=== PATIENT | female | born 1960 | race Caucasian/White ===

== ENCOUNTER 2021-05-07 12:07 | Outpatient (REF) | payer OTHER, SELFPAY ==
--- NOTE | ~2021-05-07 | XR_ITS ---
EXAMINATION: XR RIBS, LEFT CLINICAL INFORMATION: Pleurodynia COMPARISON: None TECHNIQUE: 5 views of the left ribs were obtained. PA view of the chest FINDINGS: Lungs are clear. No consolidation, pneumothorax, or pleural effusion. The cardiomediastinal silhouette and pulmonary vasculature are normal. Osseous structures are unremarkable. Ribs are intact. No fractures are identified. XR/XR ribs LT min 3V w CXR1V IMPRESSION: Unremarkable examination.
== END 2021-05-07 12:08 | disposition home or self-care (01) ==
LOC: HO.HMGCX 12:07
PROVIDERS: PCP Internal Medicine; Visit Provider Physician Assistant
DX: R07.81 Pleurodynia (principal)
CPT/HCPCS: 71101

== ENCOUNTER 2021-12-08 17:05 | Emergency (ER) | payer OTHER, SELFPAY ==
--- NOTE | ~2021-12-08 | CT_ITS ---
EXAMINATION: CT ABDOMEN AND PELVIS WITHOUT CONTRAST CLINICAL INFORMATION: Abdominal pain with nausea and vomiting COMPARISON: CT 03/29/2020 TECHNIQUE: Multidetector volumetric imaging was performed from the lung bases through the pubic symphysis. Sagittal and coronal reformatted images were obtained on the technologist workstation. This CT examination was performed using dose optimization techniques as appropriate, variously including the following: *Automated exposure control *Adjustment of mA and/or kV according to patient size (this includes techniques or standardized protocols for targeted exams where dose is matched to indication/reason for exam; i.e. extremities or head) *Use of iterative reconstruction technique Total exam DLP 1000 mGy-cm FINDINGS: The lack of intravenous contrast limits evaluation of the solid visceral organs including the liver, spleen, pancreas, and kidneys. LUNG BASES: The visualized lung bases are unremarkable. LIVER, GALLBLADDER, AND BILIARY TREE: Liver is diffusely hypoattenuating consistent with diffuse hepatic steatosis. No focal liver lesion seen. The gallbladder is unremarkable with no evidence of radiopaque gallstones, gallbladder wall thickening, or obvious pericholecystic inflammatory changes. PANCREAS: Limited non-contrast evaluation is normal. No phoebe-pancreatic fluid. SPLEEN: Limited non-contrast evaluation is normal. ADRENAL GLANDS: Normal; no adrenal mass. KIDNEYS AND URETERS: Limited non-contrast evaluation is normal. No hydronephrosis, hydroureter, or calculi seen. No perinephric stranding. GASTROINTESTINAL TRACT: The stomach is only partially distended. As on prior studies, there is relative clustering of the small bowel in the left abdomen. Some of the left upper quadrant jejunal loops are upper limits of normal in caliber with some fecalized small bowel contents suggesting prolonged small bowel transit time but no diamond evidence of obstruction. Normal appendix, image 68/97. Scattered colonic diverticulosis with moderate volume of stool present. No findings to suggest acute colitis or diverticulitis. ABDOMINAL WALL: There is fat stranding in the right lower quadrant anterior abdominal wall which could reflect sequelae of subcutaneous injections. LYMPH NODES: No pathologically enlarged lymph nodes in the abdomen or pelvis. VASCULAR: Normal caliber abdominal aorta. BLADDER: Unremarkable. PELVIC VISCERA: Normal noncontrast appearance of the uterus and ovaries. OSSEOUS STRUCTURES: Multilevel degenerative changes of the thoracolumbar spine. Calcified posterior disc osteophyte complexes at L1-L2 and L2-L3 effaced the ventral thecal sac at this level. CT/CT abdomen pelvis wo con IMPRESSION: There are some prominent but nondilated loops of small bowel in the left upper quadrant with fecalized small bowel contents. These could be seen in the setting of prolonged small bowel transit time or stasis, for example from enteritis.. No findings to suggest a high-grade small bowel obstruction. No additional acute CT findings. Again seen is severe diffuse hepatic steatosis.
[2021-12-08 17:34] VITALS: BP 144/74; PULSE 84; RESP 18; TEMP 36.8; O2SAT 97; BMI 34.4
[2021-12-08 17:49] LABS: Hematocrit 40.4 % (37.0-47.0); Hemoglobin 13.5 g/dl (12.0-16.0); Mean Corpuscular HGB Conc 33.4 g/dl (31.0-35.0); Mean Corpuscular Hemoglobin 32.5 pg (27.0-33.0); Mean Corpuscular Volume 97.3 fL (80.0-98.0); Mean Platelet Volume 9.8 fL (9.4-12.3); Platelet Count 155 X10*3/uL (160-400); Red Blood Count 4.15 X10*6/uL (4.20-5.50); Red Cell Distribution Width 12.6 % (11.0-16.0); White Blood Count 7.5 X10*3/uL (4.8-10.8)
[2021-12-08 18:04] LABS: COVID-19 Test Negative (Negative); IDNOW Serial# 16C4AD1C
[2021-12-08 18:06] LABS: Anion Gap 13 (12-20); Blood Urea Nitrogen 26 mg/dL (9-16); Calcium 8.9 mg/dL (8.4-10.2); Carbon Dioxide 24 mmol/L (22-29); Chloride 103 mmol/L (96-108); Creatinine Clr Calc Pharmacy 91.5; Estimated Glomerular Filt Rate > 60; Glucose Random 134 mg/dL (60-115); Lipase 49 U/L (8-78); Potassium 4.2 mmol/L (3.3-5.1); Sodium 136 mmol/L (135-145)
--- NOTE | 2021-12-08 21:24 | ED.ABDPAIN ---
HPI - Abdominal Pain General Chief Complaint: Recheck/Abnormal Lab/Rx Stated Complaint: abnormal labs, abd pain Time Seen by Provider: 12/08/21 21:17 Source: patient Mode of arrival: ambulatory Limitations: no limitations History of Present Illness HPI narrative: 61 years old female came in for evaluation of upper abdominal pain. Upper/epigastric abdominal pain started 1 day ago, pain has been constant, started as severe 10/10 now it is 5/10, pain is associated with nausea but no vomiting, has a normal bowel movement with no diarrhea or blood in the bowel movement, food make the pain slightly worse, nothing relieves the pain, never had this pain in the past. Patient declined past abdominal surgery. No urine frequency, no dysuria, no blood in the urine, no vaginal bleeding, no vaginal discharge. Related Data Home Medications Medication Instructions Recorded Confirmed empagliflozin 25 mg tablet 25 mg PO DAILY 05/07/21 (Jardiance) insulin glargine 100 unit/mL (3 unit SUBCUT 05/07/21 mL) subcutaneous pen (Basaglar KwikPen U-100 Insulin) insulin lispro 100 unit/mL SUBCUT 05/07/21 subcutaneous pen (Humalog KwikPen (U-100) Insulin) lancets 28 gauge (FreeStyle #100 ea 05/07/21 Lancets) lisinopril 5 mg tablet 5 mg PO DAILY 05/07/21 metformin 500 mg tablet,extended 1,000 mg PO BID 05/07/21 release 24 hr nystatin 100,000 unit/gram topical TOPICAL 05/07/21 powder Previous Rx's Medication Instructions Recorded nitrofurantoin 100 mg PO Q12H 7 Days #14 cap 12/09/21 monohydrate/macrocrystals 100 mg capsule (Macrobid) Allergies Allergy/AdvReac Type Severity Reaction Status Date / Time No Known Allergies Allergy Verified 05/07/21 11:41 Review of Systems Review of Systems All other systems are reviewed and are negative Constitutional: Reports as per HPI and Reports no additional constitutional complaints Eyes: Reports as per HPI and Reports no additional eye complaints Reports system reviewed and no additional complaints, except as documented Cardiovascular: Reports as per HPI and Reports no additional cardiovascular complaints Respiratory: Reports as per HPI and Reports no additional respiratory complaints Gastrointestinal: Reports as per HPI and Reports no additional gastrointestinal complaints Genitourinary: Reports no additional female genitourinary complaints Musculoskeletal: Reports no additional musculoskeletal complaints Skin/Breast: Reports system reviewed and no additional complaints, except as docu Psychiatric: Reports no additional psychiatric complaints Endocrine: Reports no additional endocrine complaints Hematologic/Lymphatic: Reports no additional hematologic/lymphatic complaints Allergic/Immunologic: Reports no additional allergic/immunologic complaints Reports system reviewed and no additional complaints, except as documented and Reports Abnormal speech present [facility] Social History Social History Patient Tobacco Use Status: Former Tobacco user Advance Directives: No Advance Directives Information Provided: No Physical Exam ED Vital Signs: Vital Signs - 24 hr 12/08/21 17:34 12/08/21 23:39 Temperature 98.2 F 98.2 F Pulse Rate 84 78 Respiratory Rate 18 16 Blood Pressure 144/74 H 129/75 Pulse Oximetry 97 95 BMI result Body Mass Index 34.4 Vital signs have been reviewed as appeared to be correct. Blood pressure normal. Heart rate normal. Respiration rate normal. Temperature normal. Oxygen saturation normal. Appearance: Alert. Oriented X3. No acute distress. Head: Normal external exam. Normocephalic. Atraumatic. No Molina signs noted. No raccoon eyes noted Eyes: PERRLA. EOMI. Conjunctiva and sclera normal. Eyelids normal. ENT: TM's Normal. Pharynx normal. Uvula midline. Moist mucous membranes. No trismus noted. No drooling noted. No muffled voice noted. Neck: Normal inspection. Neck supple. FROM. No adenopathy. Thyroid Normal. No meningeal signs. No neck mass noted. CVS: Normal heart rate and rhythm. Heart sound normal. No murmurs noted. Pulses normal throughout. Respiratory: No respiratory distress. Painless inspiration. Breath sounds normal. No wheezes/rales/rhonchi noted. Chest nontender. No accessory muscle usage noted or decreased air movement noted. Abdomen: Soft, mild epigastric tenderness with no rebound tenderness, no guarding. Bowel sounds normal in all 4 quadrants. No distention noted. No organomegaly noted. No visible injury noted. Back: No CVA tenderness. Full range of motion noted. Skin: Skin warm and dry. Normal skin color. Normal skin turgor. No rashes/lesions/lacerations noted. Extremities: No lower extremity edema. Extremities exhibit normal range of motion. Extremities nontender. Neuro: Oriented X 3. Cranial nerve exam: II-XII are grossly intact No motor deficit. No sensory deficit. Reflexes normal. Course Course Course Narrative: Assessment and plan. 61-year-old female came in for abdominal pain evaluation, patient has unremarkable workup, CT of the abdomen suggesting possible enteritis, physical exam and history not consistent with any recent infectious or inflammatory process of the GI, patient currently has no abdominal pain, repeat abdominal exam shows no tenderness, no rebound tenderness. Able to tolerate p.o. intake, will discharge the patient and follow up with GI as an outpatient. UTI will start the patient on Macrobid and encouraged to drink plenty of fluids. MDM - Abdominal Pain Medical Records Attestation: I reviewed the patient's medical records. Lab Data Attestation: I reviewed the patient's lab results. Result diagrams: 12/08/21 17:41 12/08/21 17:41 Labs: Lab Results 12/08/21 12/08/21 12/08/21 Range/Units 17:41 17:41 17:41 WBC 7.5 (4.8-10.8) X10*3/uL RBC 4.15 L (4.20-5.50) X10*6/uL Hgb 13.5 (12.0-16.0) g/dl Hct 40.4 (37.0-47.0) % MCV 97.3 (80.0-98.0) fL MCH 32.5 (27.0-33.0) pg MCHC 33.4 (31.0-35.0) g/dl RDW 12.6 (11.0-16.0) % Plt Count 155 L (160-400) X10*3/uL MPV 9.8 (9.4-12.3) fL Absolute Nucleated RBC 0.000 (0.0-0.012) X10*3/uL Nucleated RBC % (auto) 0.0 (0.0-0.2) /100WBC Sodium 136 (135-145) mmol/L Potassium 4.2 (3.3-5.1) mmol/L Chloride 103 (96-108) mmol/L Carbon Dioxide 24 (22-29) mmol/L Anion Gap 13 (12-20) BUN 26 H (9-16) mg/dL Creatinine 0.84 (0.5-1.4) mg/dL Estim Creat Clear Calc 91.5 Estimated GFR > 60 Random Glucose 134 H (60-115) mg/dL Calcium 8.9 (8.4-10.2) mg/dL Total Bilirubin 0.5 (0.0-1.0) mg/dL Direct Bilirubin 0.3 (0.0-0.5) mg/dL AST 24 (5-31) U/L ALT 32 H (0-31) U/L Alkaline Phosphatase 91 (39-117) U/L Total Protein 6.7 (6.5-8.0) g/dL Albumin 3.7 (3.5-5.0) g/dL Lipase 49 (8-78) U/L Urine Color Urine Appearance Urine pH (5.0-8.0) Ur Specific [place] (1.005-1.025) Urine Protein (NEG-TRACE) MG/DL Urine Glucose (UA) (NEG) MG/DL Urine Ketones (NEG) MG/DL Urine Blood (NEG) Urine Nitrite (NEG) Ur Leukocyte Esterase (NEG) Urine RBC (0) /HPF Urine WBC (0-4) /HPF Ur Squamous Epith Cells /LPF Urine Bacteria /LPF Urine Opiates Screen (Not Detect) Urine Fentanyl Screen (Not Detect) Ur Barbiturates Screen (Not Detect) Ur Phencyclidine Scrn (Not Detect) Ur Amphetamines Screen (Not Detect) U Benzodiazepines Scrn (Not Detect) Urine Cocaine Screen (Not Detect) U Marijuana (THC) Screen (Not Detect) COVID-19 (CARISA) Negative (Negative) COVID-19 Clin Com See Note 12/08/21 12/08/21 Range/Units 22:00 22:00 WBC (4.8-10.8) X10*3/uL RBC (4.20-5.50) X10*6/uL Hgb (12.0-16.0) g/dl Hct (37.0-47.0) % MCV (80.0-98.0) fL MCH (27.0-33.0) pg MCHC (31.0-35.0) g/dl RDW (11.0-16.0) % Plt Count (160-400) X10*3/uL MPV (9.4-12.3) fL Absolute Nucleated RBC (0.0-0.012) X10*3/uL Nucleated RBC % (auto) (0.0-0.2) /100WBC Sodium (135-145) mmol/L Potassium (3.3-5.1) mmol/L Chloride (96-108) mmol/L Carbon Dioxide (22-29) mmol/L Anion Gap (12-20) BUN (9-16) mg/dL Creatinine (0.5-1.4) mg/dL Estim Creat Clear Calc Estimated GFR Random Glucose (60-115) mg/dL Calcium (8.4-10.2) mg/dL Total Bilirubin (0.0-1.0) mg/dL Direct Bilirubin (0.0-0.5) mg/dL AST (5-31) U/L ALT (0-31) U/L Alkaline Phosphatase (39-117) U/L Total Protein (6.5-8.0) g/dL Albumin (3.5-5.0) g/dL Lipase (8-78) U/L Urine Color YELLOW Urine Appearance HAZY Urine pH 6.0 (5.0-8.0) Ur Specific [place] 1.020 (1.005-1.025) Urine Protein TRACE (NEG-TRACE) MG/DL Urine Glucose (UA) >=1000 H (NEG) MG/DL Urine Ketones 5 (NEG) MG/DL Urine Blood NEG (NEG) Urine Nitrite POS H (NEG) Ur Leukocyte Esterase NEG (NEG) Urine RBC 1-4 (0) /HPF Urine WBC 30-49 H (0-4) /HPF Ur Squamous Epith Cells TRACE /LPF Urine Bacteria 3+ /LPF Urine Opiates Screen Not Detected (Not Detect) Urine Fentanyl Screen Not Detected (Not Detect) Ur Barbiturates Screen Not Detected (Not Detect) Ur Phencyclidine Scrn Not Detected (Not Detect) Ur Amphetamines Screen Not Detected (Not Detect) U Benzodiazepines Scrn Not Detected (Not Detect) Urine Cocaine Screen Not Detected (Not Detect) U Marijuana (THC) Screen Not Detected (Not Detect) COVID-19 (CARISA) (Negative) COVID-19 Clin Com Imaging Data Abdomen and pelvis CT: Attestation: I personally reviewed and interpreted this imaging study as follows: Radiologist's impression: There are some prominent but nondilated loops of small bowel in the left upper quadrant with fecalized small bowel contents. These could be seen in the setting of prolonged small bowel transit time or stasis, for example from enteritis.. No findings to suggest a high-grade small bowel obstruction. ? No additional acute CT findings. Discharge Plan Discharge Clinical Impression: Abdominal pain, UTI (urinary tract infection) Patient Disposition: Home, Self-Care Instructions: Abdominal Pain (ED) Prescriptions: New nitrofurantoin monohyd/m-cryst [Macrobid] 100 mg capsule 100 mg PO Q12H 7 Days Qty: 14 0RF Rx Instructions: must administer with a meal/food No Action lisinopril 5 mg tablet 5 mg PO DAILY 0RF Jardiance 25 mg tablet 25 mg PO DAILY 0RF (DME) lancets [FreeStyle Lancets] 28 gauge misc See Rx Instructions ea topical QID Qty: 100 0RF Rx Instructions: As directed Basaglar KwikPen U-100 Insulin 100 unit/mL (3 mL) insulin pen subcut 0RF metformin 500 mg tablet extended release 24 hr 1,000 mg PO BID 0RF insulin lispro [Humalog KwikPen Insulin] 100 unit/mL insulin pen subcut 0RF nystatin 100,000 unit/gram powder topical 0RF Referrals: Marjan Banuelos MD [Physician] - Becky Flannery MD [Primary Care Provider] -
[2021-12-08 21:47] LABS: Alanine Aminotransferase 32 U/L (0-31); Albumin Level 3.7 g/dL (3.5-5.0); Alkaline Phosphatase 91 U/L (39-117); Aspartate Amino Transferase 24 U/L (5-31); Bilirubin Direct 0.3 mg/dL (0.0-0.5); Bilirubin Total 0.5 mg/dL (0.0-1.0); Total Protein 6.7 g/dL (6.5-8.0)
[2021-12-08 22:06] LABS: Appearance Urine HAZY; Color Urine YELLOW; Glucose Urine UA >=1000 MG/DL (NEG); Leukocyte Esterase Urine NEG (NEG); Nitrite Urine POS (NEG); UACC Culture Trigger YES; Urine Blood NEG (NEG); Urine Ketones 5 MG/DL (NEG); Urine Protein TRACE MG/DL (NEG-TRACE)
[2021-12-08 22:13] LABS: Bacteria Urine 3+ /LPF; Squamous Epithelial Cell Urine TRACE /LPF; WBC Urine 30-49 /HPF (0-4)
[2021-12-08 22:24] LABS: Amphetamine Screen Urine Not Detected (Not Detect); Barbiturates, Urine Not Detected (Not Detect); Benzodiazepines Screen Urine Not Detected (Not Detect); Cannabinoid Screen Urine Not Detected (Not Detect); Cocaine Screen Urine Not Detected (Not Detect); Fentanyl, urine Not Detected (Not Detect); Opiate Screen Urine Not Detected (Not Detect); Phencyclidine Screen Urine Not Detected (Not Detect)
[2021-12-08 23:39] VITALS: BP 129/75; PULSE 78; RESP 16; TEMP 36.8; O2SAT 95
[2021-12-09] MEDS: Nitrofurantoin Monohyd/M-Cryst 100 MG CAPSULE PO (01:21)
== END 2021-12-09 01:24 | disposition home or self-care (01) ==
PROVIDERS: Emergency Medicine; Emergency Provider Emergency Medicine; PCP Internal Medicine
DX: N39.0 Urinary tract infection, site not specified (principal); R10.10 Upper abdominal pain, unspecified; Z20.822 Contact with and (suspected) exposure to COVID-19
CPT/HCPCS: 74176; 80048; 80076; 80307; 81001; 83690; 85027; 87086; 87088; 87186; 87635; 99284

== ENCOUNTER 2022-07-31 13:21 | Outpatient (REF) | payer OTHER, SELFPAY ==
[2022-07-31 15:30] LABS: Alanine Aminotransferase 40 U/L (0-31); Albumin Level 3.9 g/dL (3.5-5.0); Alkaline Phosphatase 112 U/L (39-117); Aspartate Amino Transferase 29 U/L (5-31); Bilirubin Direct 0.2 mg/dL (0.0-0.5); Bilirubin Total 0.3 mg/dL (0.0-1.0); Total Protein 6.9 g/dL (6.5-8.0)
[2022-07-31 16:57] LABS: Folate 13.8 ng/mL (> or = 4.0); Vitamin B12 575 pg/mL (200-900)
[2022-08-02 08:07] LABS: HBS Num1 0.06 mIU/mL (0-7.99); HBc Num1 0.09 S/CO (0.00-0.79); Hepatitis A Antibody IgM 0.36 Index (0-0.79); Hepatitis B Core Antibody Nonreactive (Nonreactive); Hepatitis B Surface Antigen Negative (Negative); ~HepC Num1 0.09 S/CO (0.00-0.79); ~Hepatitis A Antibody IgM Nonreactive (Nonreactive); ~Hepatitis B Surface Antibody NONREACTIVE (Nonreactive); ~Hepatitis C Antibody Nonreactive (Nonreactive)
[2022-08-02 11:33] LABS: Transglutaminase Ab IgG <1.0 U/mL; Transglutaminase IgA <1.0 U/mL
[2022-08-03 11:09] LABS: HCV Log PCR <1.18 NOT DETECTED Log IU/mL (NOT DETECTED); HepC Viral Load <15 NOT DETECTED IU/mL (NOT DETECTED)
[2022-08-04 20:08] LABS: Vitamin D 25-OH, D2 <4 ng/mL; Vitamin D 25-OH, D3 26 ng/mL; Vitamin D 25-OH, Total 26 ng/mL (30-100)
== END 2022-07-31 13:22 | disposition home or self-care (01) ==
LOC: HO.LAB 13:21
PROVIDERS: PCP Internal Medicine; Referring Provider Internal Medicine; Visit Provider Nurse Practitioner Family
DX: R19.7 Diarrhea, unspecified (principal); R10.9 Unspecified abdominal pain; R79.89 Other specified abnormal findings of blood chemistry; E55.9 Vitamin D deficiency, unspecified; K58.9 Irritable bowel syndrome, unspecified; R14.0 Abdominal distension (gaseous); Z86.19 Personal history of other infectious and parasitic diseases
CPT/HCPCS: 36415; 80076; 82306; 82607; 82746; 84443; 86364; 86704; 86706; 86709; 86803; 87340; 87522

== ENCOUNTER 2022-08-27 12:07 | Inpatient (IN) | payer OTHER, SELFPAY ==
--- NOTE | ~2022-08-27 | XR_ITS ---
EXAMINATION: XR CHEST CLINICAL INFORMATION: Reason for Exam cough, chest congestion COMPARISON: Chest radiograph 05/07/2021 TECHNIQUE: One view of the chest FINDINGS: Age-indeterminate fractures of the posterior right seventh and eighth ribs, recommend correlation with point tenderness. Streaky left basilar opacities favoring atelectasis. Right infrahilar medial basilar airspace opacity which may reflect atelectasis, or developing aspiration/infection. No pneumothorax or pleural effusion. Normal cardiomediastinal silhouette. XR/XR chest 1V IMPRESSION: 1. Right infrahilar medial basilar airspace opacity which may reflect atelectasis, or developing aspiration/infection. Recommend follow-up radiograph to ensure resolution. 2. Age-indeterminate fractures of the posterior right seventh and eighth ribs, recommend correlation with point tenderness. No pneumothorax. 3. Streaky left basilar opacities favoring atelectasis.
[2022-08-27 12:11] VITALS: BP 151/75; PULSE 105; RESP 20; TEMP 37.1; O2SAT 96; BMI 35.9
[2022-08-27 13:05] LABS: Influenza A PCR NEGATIVE (Negative); Influenza B PCR NEGATIVE (Negative); Resp Syncy Virus RNA Qual PCR NEGATIVE (Negative); SARS COV2 PCR INHOUSE NEGATIVE (Negative)
[2022-08-27 15:36] VITALS: BP 190/84; PULSE 102; RESP 18; TEMP 36.9; O2SAT 94
--- NOTE | 2022-08-27 16:32 | ECG_ITS ---
Test Reason : PAIN Blood Pressure : / mmHG Vent. Rate : 108 BPM Atrial Rate : 108 BPM P-R Int : 160 ms QRS Dur : 092 ms QT Int : 336 ms P-R-T Axes : 051 -05 085 degrees QTc Int : 450 ms Sinus tachycardia Incomplete right bundle branch block Nonspecific ST and T wave abnormality Abnormal ECG No previous ECGs available Referred By: Rene Moran Electronically Signed By:HEAVEN SPARROW
--- NOTE | 2022-08-27 16:35 | ED.GENADULT ---
HPI - General Adult General Chief complaint: Upper Respiratory Symptoms Stated complaint: coughing and sneezing x2 days, cant sleep Time Seen by Provider: 08/27/22 16:20 Source: patient and RN notes reviewed Mode of arrival: ambulatory Limitations: no limitations History of Present Illness HPI narrative: A 62-year-old female past medical history significant for hypertension presents for evaluation of cough. Patient reports increased cough over the last 2 days. She reports shortness of breath with exertion that has also been getting worse over the last 2 days. Patient reports that she has not been able to sleep due to cough. She denies any chest pain. Denies any fevers, chills. Denies any sick contacts. Patient reports that she used to smoke about a pack every 2 weeks but has not smoked in over 30 years Denies any known respiratory issues but reports that her doctor wanted to have a sleep study to evaluate for sleep apnea Patient states that she occasionally has leg swelling but does not feel that she does today. The patient does state that she did not take her antihypertensive medications today. Related Data Home Medications Medication Instructions Recorded Confirmed insulin glargine 100 unit/mL (3 80 unit subcut BEDTIME 05/07/21 08/27/22 mL) subcutaneous pen (Basaglar KwikPen U-100 Insulin) insulin lispro 100 unit/mL See Protocol subcut TID 05/07/21 08/27/22 subcutaneous pen (Humalog KwikPen (U-100) Insulin) lancets 28 gauge (FreeStyle #100 ea 05/07/21 07/31/22 Lancets) lisinopril 5 mg tablet 5 mg PO DAILY 05/07/21 08/27/22 metformin 500 mg tablet,extended 1,000 mg PO BID 05/07/21 08/27/22 release 24 hr atorvastatin 10 mg tablet 10 mg PO DAILY 08/27/22 08/27/22 dulaglutide 3 mg/0.5 mL 3 mg subcut FR 08/27/22 08/27/22 [facility] naproxen 500 mg tablet 1 tab PO Q12H PRN Pain 08/27/22 08/27/22 polyethylene glycol 3350 17 17 g PO DAILY PRN Constipation 08/27/22 08/27/22 gram/dose oral powder (Miralax) Allergies Allergy/AdvReac Type Severity Reaction Status Date / Time No Known Allergies Allergy Verified 07/31/22 13:37 Review of Systems Constitutional: Constitutional: Reports as per HPI, Denies chills and Denies fatigue Cardiovascular: Cardiovascular: Denies chest pain and Reports dyspnea Respiratory: Respiratory: Reports chest congestion, Reports cough and Reports dyspnea Gastrointestinal: Gastrointestinal: Denies abdominal pain, Denies constipation and Denies vomiting Genitourinary: Genitourinary: Denies dysuria Endocrine: Endocrine: Denies fatigue [facility] Past Medical History Medical History (Updated 08/27/22 @ 18:00 by Rene Moran) Diabetes mellitus Hyperlipidemia Hypertension IBS (irritable bowel syndrome) Family History Family History Mother Diabetes Father Stroke FHx: cancer of prostate Brother Leukemia Brother Bone cancer Maternal Grandmother Diabetes Social History Social History Alcohol intake: never Patient Tobacco Use Status: Former Tobacco user Cigarette Packs Per Day: 0.25 Years Smoked: 20.00 Advance Directives: No Advance Directives Information Provided: No Physical Exam ED Vital Signs: Vital Signs - 24 hr 08/27/22 12:11 08/27/22 15:36 Temperature 98.8 F 98.4 F Pulse Rate 105 H 102 H Respiratory Rate 20 18 Blood Pressure 151/75 H 190/84 H Pulse Oximetry 96 94 Oxygen Delivery Method Room Air Nasal Cannula Oxygen Flow Rate 2 BMI result Body Mass Index 35.9 Const General: healthy appearing, comfortable, no acute distress, alert and awake Nutritional Appearance: well nourished Orientation/consciousness: patient oriented x3 [facility] Head: Yes normocephalic and Yes atraumatic Eyes Eyelids: Yes eyelids normal Conjunctivae: conjunctivae normal Sclerae: sclerae normal Corneas: corneas normal Pupils: Equal, round and reactive pupils present EOM: EOMs intact bilaterally Resp Effort & Inspection: able to speak in complete sentences and Actively coughing Auscultation: wheezes right lower (Faint wheeze in the right lung base) Cardio Other: 1+ bilateral pitting edema up to just above the ankles Jugular venous distension: no JVD Rate: regular rate Rhythm: regular rhythm GI Inspection: No distended Palpation (GI): Soft to palpation, nontender and no guarding Auscultation: normoactive bowel sounds Skin General skin exam: no rashes or lesions noted and elasticity normal Lesions: no lesions Rashes: no rashes Neuro General: patient oriented x3 Cranial nerves: Yes Equal, round and reactive pupils present Extrem General: Yes full ROM Course Reevaluation(s) Reevaluation #1: Patient re-evaluated, she continues to complain of shortness of breath, cough, her vital signs remained stable. The patient did vomit once. She was given Zofran IV. Patient's labs reviewed, she was noted to have a magnesium that is critical at 1.4. This was supplemented with magnesium 2 g IV. Her lactate was within normal limits. Will discuss with the hospitalist for admission. Of note, the patient does not meet SIRS criteria and is not septic. Time: 17:53 Medications Administered Discontinued Medications Generic Name Dose Route Start Last Admin Trade Name Freq PRN Reason Stop Dose Admin Albuterol Sulfate 5 mg/ 0 mg 08/27/22 16:31 08/27/22 18:43 Ipratropium [place] 0.5 mg INHALE 08/27/22 16:32 1 each ONCE ONE Administration Sodium Chloride 1,000 mls @ 999 mls/hr 08/27/22 16:45 08/27/22 17:49 Ns IV 08/27/22 17:45 999 mls/hr .Q1H1M ESTEAFNI Administration Ceftriaxone Sodium 1 gm/ 50 mls @ 100 mls/hr 08/27/22 16:31 08/27/22 17:49 Sodium Chloride IV 08/27/22 17:00 100 mls/hr ONCE ONE Administration Azithromycin 500 mg/ Sodium 250 mls @ 125 mls/hr 08/27/22 16:31 08/27/22 18:34 Chloride IV 08/27/22 18:30 125 mls/hr ONCE ONE Administration Ondansetron HCl 4 mg 08/27/22 17:33 08/27/22 17:53 Ondansetron Hcl 4 Mg/2 Ml Vial IVPUSH 08/27/22 17:34 4 mg ONCE ONE Administration Medical Decision Making Medical Decision Making [facility] Narrative: 62-year-old female with past medical history significant for hypertension presents for evaluation of cough and shortness of breath x2 days. At the time of my evaluation the patient's oxygen saturation was 92% while at rest in receiving absence of mentation the nasal cannula at 2 L. simply sitting the patient up to listen to her lung maza, the patient's oxygen saturation dropped to 88% while still receiving supplemental oxygen. We will draw labs including blood cultures. The patient has chest x-ray shows concern for aspiration pneumonia and given the patient's symptomatic x2 days time will treat as such. Will likely discuss admission with the hospitalist. Differential Diagnosis Influenza Pneumonia Viral syndrome Aspiration pneumonia Congestive heart failure Postnasal drip Respiratory infection Acute asthma exacerbation Lab Data 08/27/22 17:07 08/27/22 17:07 Labs: Lab Results 08/27/22 08/27/22 08/27/22 Range/Units 12:17 16:58 17:07 WBC (4.8-10.8) X10*3/uL RBC (4.20-5.50) X10*6/uL Hgb (12.0-16.0) g/dl Hct (37.0-47.0) % MCV (80.0-98.0) fL MCH (27.0-33.0) pg MCHC (31.0-35.0) g/dl RDW (11.0-16.0) % Plt Count (160-400) X10*3/uL MPV (9.4-12.3) fL Immature Gran % (Auto) (0.0-0.4) % Neut % (Auto) (45-73) % Lymph % (Auto) (20-40) % [place] % (Auto) (2-11) % Eos % (Auto) (0-4) % Baso % (Auto) (0-2) % Lymph # (Auto) (1.2-4.9) X10*3/uL [place] # (Auto) (0.1-1.2) X10*3/uL Eos # (Auto) (0.0-0.4) X10*3/uL Baso # (Auto) (0.0-0.2) X10*3/uL Abs Immat Gran (auto) (0.00-0.03) X10*3/uL Absolute Neuts (auto) (2.0-8.3) x10*3/uL Absolute Nucleated RBC (0.0-0.012) X10*3/uL Nucleated RBC % (auto) (0.0-0.2) /100WBC PT (10.0-13.1) SEC INR (0.9-1.1) APTT (26.0-36.4) SEC Sodium (135-145) mmol/L Potassium (3.3-5.1) mmol/L Chloride (96-108) mmol/L Carbon Dioxide (22-29) mmol/L Anion Gap (12-20) BUN (9-16) mg/dL Creatinine (0.5-1.4) mg/dL Estim Creat Clear Calc Estimated GFR Random Glucose (60-115) mg/dL Lactic Acid 1.4 (0.5-2.0) mmol/L Calcium (8.4-10.2) mg/dL Magnesium (1.6-2.6) mg/dL Total Bilirubin (0.0-1.0) mg/dL AST (5-31) U/L ALT (0-31) U/L Alkaline Phosphatase (39-117) U/L B-Natriuretic Peptide (<100) pg/mL Total Protein (6.5-8.0) g/dL Albumin (3.5-5.0) g/dL Urine Color Yellow Urine Appearance Clear Urine pH 5.0 (5.0-9.0) Ur Specific [place] 1.020 (1.005-1.025) Urine Protein 30 (1+) H (Neg-Trace) mg/dL Urine Glucose (UA) Negative (Negative) mg/dL Urine Ketones Negative (Negative) mg/dL Urine Blood Trace H (Negative) Urine Nitrite Positive H (Negative) Ur Leukocyte Esterase Small (1+) H (Negative) Influenza Type A (PCR) NEGATIVE (Negative) Influenza Type B (PCR) NEGATIVE (Negative) RSV RNA Qual (PCR) NEGATIVE (Negative) SARS-CoV-2 RNA (RT-PCR) NEGATIVE (Negative) 08/27/22 08/27/22 08/27/22 Range/Units 17:07 17:07 17:07 WBC 7.8 (4.8-10.8) X10*3/uL RBC 3.64 L (4.20-5.50) X10*6/uL Hgb 11.7 L (12.0-16.0) g/dl Hct 34.3 L (37.0-47.0) % MCV 94.2 (80.0-98.0) fL MCH 32.1 (27.0-33.0) pg MCHC 34.1 (31.0-35.0) g/dl RDW 12.3 (11.0-16.0) % Plt Count 127 L (160-400) X10*3/uL MPV 10.0 (9.4-12.3) fL Immature Gran % (Auto) 0.6 H (0.0-0.4) % Neut % (Auto) 84.3 H (45-73) % Lymph % (Auto) 9.5 L (20-40) % [place] % (Auto) 5.0 (2-11) % Eos % (Auto) 0.3 (0-4) % Baso % (Auto) 0.3 (0-2) % Lymph # (Auto) 0.7 L (1.2-4.9) X10*3/uL [place] # (Auto) 0.4 (0.1-1.2) X10*3/uL Eos # (Auto) 0.0 (0.0-0.4) X10*3/uL Baso # (Auto) 0.0 (0.0-0.2) X10*3/uL Abs Immat Gran (auto) 0.05 H (0.00-0.03) X10*3/uL Absolute Neuts (auto) 6.6 (2.0-8.3) x10*3/uL Absolute Nucleated RBC 0.000 (0.0-0.012) X10*3/uL Nucleated RBC % (auto) 0.0 (0.0-0.2) /100WBC PT (10.0-13.1) SEC INR (0.9-1.1) APTT (26.0-36.4) SEC Sodium 137 (135-145) mmol/L Potassium 4.3 (3.3-5.1) mmol/L Chloride 100 (96-108) mmol/L Carbon Dioxide 26 (22-29) mmol/L Anion Gap 15 (12-20) BUN 22 H (9-16) mg/dL Creatinine 0.75 (0.5-1.4) mg/dL Estim Creat Clear Calc 103.4 Estimated GFR > 60 Random Glucose 188 H (60-115) mg/dL Lactic Acid (0.5-2.0) mmol/L Calcium 9.0 (8.4-10.2) mg/dL Magnesium 1.4 L* (1.6-2.6) mg/dL Total Bilirubin 0.6 (0.0-1.0) mg/dL AST 54 H (5-31) U/L ALT 68 H (0-31) U/L Alkaline Phosphatase 101 (39-117) U/L B-Natriuretic Peptide 70 (<100) pg/mL Total Protein 6.6 (6.5-8.0) g/dL Albumin 3.8 (3.5-5.0) g/dL Urine Color Urine Appearance Urine pH (5.0-9.0) Ur Specific [place] (1.005-1.025) Urine Protein (Neg-Trace) mg/dL Urine Glucose (UA) (Negative) mg/dL Urine Ketones (Negative) mg/dL Urine Blood (Negative) Urine Nitrite (Negative) Ur Leukocyte Esterase (Negative) Influenza Type A (PCR) (Negative) Influenza Type B (PCR) (Negative) RSV RNA Qual (PCR) (Negative) SARS-CoV-2 RNA (RT-PCR) (Negative) 08/27/22 Range/Units 17:07 WBC (4.8-10.8) X10*3/uL RBC (4.20-5.50) X10*6/uL Hgb (12.0-16.0) g/dl Hct (37.0-47.0) % MCV (80.0-98.0) fL MCH (27.0-33.0) pg MCHC (31.0-35.0) g/dl RDW (11.0-16.0) % Plt Count (160-400) X10*3/uL MPV (9.4-12.3) fL Immature Gran % (Auto) (0.0-0.4) % Neut % (Auto) (45-73) % Lymph % (Auto) (20-40) % [place] % (Auto) (2-11) % Eos % (Auto) (0-4) % Baso % (Auto) (0-2) % Lymph # (Auto) (1.2-4.9) X10*3/uL [place] # (Auto) (0.1-1.2) X10*3/uL Eos # (Auto) (0.0-0.4) X10*3/uL Baso # (Auto) (0.0-0.2) X10*3/uL Abs Immat Gran (auto) (0.00-0.03) X10*3/uL Absolute Neuts (auto) (2.0-8.3) x10*3/uL Absolute Nucleated RBC (0.0-0.012) X10*3/uL Nucleated RBC % (auto) (0.0-0.2) /100WBC PT 12.8 (10.0-13.1) SEC INR 1.1 (0.9-1.1) APTT 28.5 (26.0-36.4) SEC Sodium (135-145) mmol/L Potassium (3.3-5.1) mmol/L Chloride (96-108) mmol/L Carbon Dioxide (22-29) mmol/L Anion Gap (12-20) BUN (9-16) mg/dL Creatinine (0.5-1.4) mg/dL Estim Creat Clear Calc Estimated GFR Random Glucose (60-115) mg/dL Lactic Acid (0.5-2.0) mmol/L Calcium (8.4-10.2) mg/dL Magnesium (1.6-2.6) mg/dL Total Bilirubin (0.0-1.0) mg/dL AST (5-31) U/L ALT (0-31) U/L Alkaline Phosphatase (39-117) U/L B-Natriuretic Peptide (<100) pg/mL Total Protein (6.5-8.0) g/dL Albumin (3.5-5.0) g/dL Urine Color Urine Appearance Urine pH (5.0-9.0) Ur Specific [place] (1.005-1.025) Urine Protein (Neg-Trace) mg/dL Urine Glucose (UA) (Negative) mg/dL Urine Ketones (Negative) mg/dL Urine Blood (Negative) Urine Nitrite (Negative) Ur Leukocyte Esterase (Negative) Influenza Type A (PCR) (Negative) Influenza Type B (PCR) (Negative) RSV RNA Qual (PCR) (Negative) SARS-CoV-2 RNA (RT-PCR) (Negative) Independent Interpretation I performed an independent interpretation of an: Plain X-Ray (Right side infiltrate) Radiology Impression Discussion of test interpretation with radiology: I have reviewed the radiologist's reading. Radiologist Impression: agree with interpretation Discharge Plan Discharge Clinical Impression: Aspiration pneumonia, Hypoxia Patient Disposition: Admitted As Inpatient
[2022-08-27 17:23] LABS: MANUAL DIFF FLAG NO
[2022-08-27 17:27] LABS: Basophils Percent Auto 0.3 % (0-2); Eosinophils Percent Auto 0.3 % (0-4); Hematocrit 34.3 % (37.0-47.0); Hemoglobin 11.7 g/dl (12.0-16.0); Imm Gran Abs Auto 0.05 X10*3/uL (0.00-0.03); Imm Gran Pct Auto 0.6 % (0.0-0.4); Lymphocytes Absolute Auto 0.7 X10*3/uL (1.2-4.9); Lymphocytes Percent Auto 9.5 % (20-40); Mean Corpuscular HGB Conc 34.1 g/dl (31.0-35.0); Mean Corpuscular Hemoglobin 32.1 pg (27.0-33.0); Mean Corpuscular Volume 94.2 fL (80.0-98.0); Monocytes Absolute Auto 0.4 X10*3/uL (0.1-1.2); Neutrophils Absolute Auto 6.6 x10*3/uL (2.0-8.3); Neutrophils Percent Auto 84.3 % (45-73); Platelet Count 127 X10*3/uL (160-400); Red Blood Count 3.64 X10*6/uL (4.20-5.50); Red Cell Distribution Width 12.3 % (11.0-16.0); White Blood Count 7.8 X10*3/uL (4.8-10.8)
[2022-08-27 17:28] LABS: Appearance Urine Clear; Color Urine Yellow; Glucose Urine UA Negative (Negative); Leukocyte Esterase Urine Small (1+) (Negative); Nitrite Urine Positive (Negative); UMIC TRIGGER UACC YES; Urine Blood Trace (Negative); Urine Ketones Negative (Negative); Urine Protein 30 (1+) mg/dL (Neg-Trace)
--- NOTE | 2022-08-27 17:30 | PHA.MEDREC ---
Pharmacy Consult ? Medication Reconciliation Pharmacy has completed the medication reconciliation. Patient had a med list and we reviewed it together to complete med rec.
[2022-08-27 17:42] LABS: Lactic Acid 1.4 mmol/L (0.5-2.0)
--- NOTE | 2022-08-27 17:48 | P.HPHOSP_ITS ---
History of Present Illness Date of Service: 08/27/22 Attending physician on admission: Jill Robbins Chief Complaint: cold like symptoms 62-year-old woman presenting from home with complaints of cough over the last 2 days reporting shortness of breath with exertion with no other associated s ymptoms. Denies chest pain, fever, chills, sick contacts, recent travel. chest x-ray showing airspace opacity to the right infrahilar region with possible aspiration versus developing infection. Labs all within acceptable limits other than magnesium that was 1.4 and repleted in the ER. Mildly elevated AST and ALT. Positive urinalysis with history of Klebsiella in the past. Flu, COVID and RSV negative. Elevated blood pressure reading, patient reports she had not taken her morning medications today. She was given a dose of ceftriaxone, albuterol, Zofran, azithromycin and 1 L of IV fluid in the ER. Should be placed on observation for possible aspiration pneumonia versus community-acquired pneumonia. Review of Systems Review of Systems: Denies any recent fever chills or decrease in appetite respiratory See HPI cardiovascular denied chest pain gastrointestinal denies any dysphagia abdominal pain nausea vomiting or diarrhea genitourinary denies any dysuria frequency or hematuria musculoskeletal denies any joint pain or swelling neuropsych denies any weakness or seizures all other systems reviewed are negative [facility] Medical History (Updated 08/27/22 @ 18:00 by Rene Moran) Diabetes mellitus Hyperlipidemia Hypertension IBS (irritable bowel syndrome) Family History Mother Diabetes Father Stroke FHx: cancer of prostate Brother Leukemia Brother Bone cancer Maternal Grandmother Diabetes Social History Alcohol intake: never Patient Tobacco Use Status: Former Tobacco user Cigarette Packs Per Day: 0.25 Years Smoked: 20.00 Smoked in Last 30 Days: No Advance Directives: No Advance Directives Information Provided: No Meds Allergies Allergy/AdvReac Type Severity Reaction Status Date / Time No Known Allergies Allergy Verified 07/31/22 13:37 Active Medications: Current Medications Azithromycin 500 mg/ Sodium (Chloride) 250 mls @ 125 mls/hr IV ONCE ONE Stop: 08/27/22 18:30 Pharmacy Consult (Consult Rx Perform Med Rec) 1 each MISCELLANE ONCE PRN PRN Reason: Consult order Home Medications Medication Instructions Recorded Confirmed Last Taken Type insulin glargine 100 unit/mL (3 80 unit subcut BEDTIME 05/07/21 08/27/22 08/26/22 History mL) subcutaneous pen (Basaglar KwikPen U-100 Insulin) insulin lispro 100 unit/mL See Protocol subcut TID 05/07/21 08/27/22 08/26/22 History subcutaneous pen (Humalog KwikPen (U-100) Insulin) lancets 28 gauge (FreeStyle #100 ea 05/07/21 07/31/22 Unknown History Lancets) lisinopril 5 mg tablet 5 mg PO DAILY 05/07/21 08/27/22 08/26/22 History metformin 500 mg tablet,extended 1,000 mg PO BID 05/07/21 08/27/22 08/26/22 History release 24 hr atorvastatin 10 mg tablet 10 mg PO DAILY 08/27/22 08/27/22 08/26/22 History dulaglutide 3 mg/0.5 mL 3 mg subcut FR 08/27/22 08/27/22 08/25/22 History subcutaneous pen injector (Trulicity) naproxen 500 mg tablet 1 tab PO Q12H PRN Pain 08/27/22 08/27/22 Unknown History polyethylene glycol 3350 17 17 g PO DAILY PRN Constipation 08/27/22 08/27/22 Unknown History gram/dose oral powder (Miralax) Physical Exam Vital Signs and Narrative: Vital Signs: Last Vital Signs Temp 98.4 F 08/27/22 15:36 Pulse 102 H 08/27/22 15:36 Resp 18 08/27/22 15:36 BP 190/84 H 08/27/22 15:36 Pulse Ox 94 08/27/22 15:36 O2 Del Method 08/27/22 15:36 O2 Flow Rate 2 08/27/22 15:36 BMI result Body Mass Index 35.9 Appearing in no acute distress head is normocephalic atraumatic eyes pupils are PERRLA sclera is anicteric mouth throat mucous membranes are intact and moist neck is supple no lymphadenopathy, no JVD noted lung sounds are clear to auscultation heart regular rate rhythm, clear S1, S2 positive bowel sounds, abdomen is soft, nontender neuro patient is alert x3, no focal deficits Results Labs 08/27/22 17:07 08/27/22 17:07 Labs: Laboratory Results - last 24 hr 08/27/22 08/27/22 08/27/22 12:17 16:58 17:07 MCV MCH MCHC RDW Plt Count MPV Immature Gran % (Auto) Neut % (Auto) Lymph % (Auto) [place] % (Auto) Eos % (Auto) Baso % (Auto) Lymph # (Auto) [place] # (Auto) Eos # (Auto) Baso # (Auto) Abs Immat Gran (auto) Absolute Neuts (auto) Absolute Nucleated RBC Nucleated RBC % (auto) Lactic Acid 1.4 Urine Color Yellow Urine Appearance Clear Urine pH 5.0 Ur Specific [place] 1.020 Urine Protein 30 (1+) H Urine Glucose (UA) Negative Urine Ketones Negative Urine Blood Trace H Urine Nitrite Positive H Ur Leukocyte Esterase Small (1+) H Influenza Type A (PCR) NEGATIVE Influenza Type B (PCR) NEGATIVE RSV RNA Qual (PCR) NEGATIVE SARS-CoV-2 RNA (RT-PCR) NEGATIVE 08/27/22 17:07 MCV 94.2 MCH 32.1 MCHC 34.1 RDW 12.3 Plt Count 127 L MPV 10.0 Immature Gran % (Auto) 0.6 H Neut % (Auto) 84.3 H Lymph % (Auto) 9.5 L [place] % (Auto) 5.0 Eos % (Auto) 0.3 Baso % (Auto) 0.3 Lymph # (Auto) 0.7 L [place] # (Auto) 0.4 Eos # (Auto) 0.0 Baso # (Auto) 0.0 Abs Immat Gran (auto) 0.05 H Absolute Neuts (auto) 6.6 Absolute Nucleated RBC 0.000 Nucleated RBC % (auto) 0.0 Lactic Acid Urine Color Urine Appearance Urine pH Ur Specific [place] Urine Protein Urine Glucose (UA) Urine Ketones Urine Blood Urine Nitrite Ur Leukocyte Esterase Influenza Type A (PCR) Influenza Type B (PCR) RSV RNA Qual (PCR) SARS-CoV-2 RNA (RT-PCR) Imaging Radiologist's Impressions: Impressions Chest X-Ray 08/27/22 12:39 IMPRESSION: 1. Right infrahilar medial basilar airspace opacity which may reflect atelectasis, or developing aspiration/infection. Recommend follow-up radiograph to ensure resolution. 2. Age-indeterminate fractures of the posterior right seventh and eighth ribs, recommend correlation with point tenderness. No pneumothorax. 3. Streaky left basilar opacities favoring atelectasis. Assessment and Plan (1) Aspiration pneumonia: Status: Acute Plan 62-year-old woman admitted with possible aspiration pneumonia plan Aspiration pneumonia versus community-acquired pneumonia Rocephin and azithromycin for now Speech bedside swallow evaluation Supplemental oxygen as needed Monitor for hypoxia UTI On Rocephin Follow urine culture Hypomagnesemia Repleted Diabetes mellitus type 2 Sliding scale, Lantus, ADA diet Hypertension elevated blood pressure reading, did not take blood pressure medications today give 1 dose of 5 mg of lisinopril now Continue home medications Hyperlipidemia Continue statin Obesity. BMI 35.9 Discussed importance of weight management as this may be contributing to worsening of other comorbidities DVT prophylaxis Lovenox Attending Dr. Robbins Full code Observation Time Spent With Patient Time: Total time managing care of this patient today ____ minutes. Quality Stroke Does the patient have a stroke diagnosis?: No VTE Prior VTE?: No VTE Risk Level:: Medical - moderate - high VTE Device Contraindication: Treatment Not Indicated VTE Drug Contraindication: N/A - Med Ordered
[2022-08-27 17:49] LABS: Alanine Aminotransferase 68 U/L (0-31); Albumin Level 3.8 g/dL (3.5-5.0); Alkaline Phosphatase 101 U/L (39-117); Anion Gap 15 (12-20); Aspartate Amino Transferase 54 U/L (5-31); Bilirubin Total 0.6 mg/dL (0.0-1.0); Blood Urea Nitrogen 22 mg/dL (9-16); Carbon Dioxide 26 mmol/L (22-29); Chloride 100 mmol/L (96-108); Creatinine Clr Calc Pharmacy 103.4; Estimated Glomerular Filt Rate > 60; Glucose Random 188 mg/dL (60-115); INTERNATIONAL NORM RATIO 1.1 (0.9-1.1); Magnesium 1.4 mg/dL (1.6-2.6); Potassium 4.3 mmol/L (3.3-5.1); Prothrombin Time 12.8 SEC (10.0-13.1); Sodium 137 mmol/L (135-145); Total Protein 6.6 g/dL (6.5-8.0)
[2022-08-27] MEDS: 0.9 % Sodium Chloride 1,000 ML 999 ML IV (17:49)
[2022-08-27] MEDS: cefTRIAXone sodium 1 GM in 0.9 % Sodium Chloride 50 ML IV (17:49)
[2022-08-27 17:50] LABS: B Type Natriuretic Peptide 70 pg/mL (<100)
[2022-08-27 17:52] LABS: Partial Thromboplastin Time 28.5 SEC (26.0-36.4)
[2022-08-27] MEDS: ondansetron HCL 4 MG/2 ML VIAL IVPUSH (17:53)
[2022-08-27] MEDS: Azithromycin 500 MG in 0.9 % Sodium Chloride 250 ML 125 MG IV (18:34)
[2022-08-27 18:45] VITALS: PULSE 101; RESP 19; O2SAT 94
[2022-08-27 19:34] LABS: Bacteria Urine 4+ (None Seen); Hyaline Casts Urine 0-2 /LPF (0-2); RBC Urine 0-2 /HPF (0-2); Squamous Epithelial Cell Urine 0-2 /HPF (0-2); UACC Culture Trigger YES
[2022-08-27 20:18] VITALS: BP 158/61; PULSE 102; RESP 18; O2SAT 94
[2022-08-27] MEDS: Enoxaparin Sodium 40 MG/0.4 ML SYRINGE SUBCUT (20:19)
[2022-08-27] MEDS: Magnesium Sulfate/H2O 2 GM/50 ML PIGGYBACK IV (20:21)
[2022-08-27] MEDS: Insulin Glargine,Hum.rec.anlog 100 UNIT/ML 10 ML VIAL 80 UNIT SUBCUT (20:33)
--- NOTE | 2022-08-27 21:43 | PC.NURSE ---
assumed care of pt at 1900. pt medicated per SEP. purewick placed, pt cleaned and repositioned in bed, pt on 2L O2 via NC. no complaints of a pain at this time. restingcomfortably call chang within reach WCTM
[2022-08-27 22:02] LABS: Glucose, Whole Blood 165 mg/dL (60-115)
--- NOTE | 2022-08-27 22:13 | PC.NURSE ---
report given to S3 RN, Thor
[2022-08-27 23:07] VITALS: BMI 35.7
[2022-08-27] MEDS: Acetaminophen 325 MG TABLET 650 MG PO (23:19)
[2022-08-27] MEDS: 0.9 % Sodium Chloride Flush 3 ML SYRINGE IVFLUSH (23:24)
[2022-08-27 23:40] VITALS: BP 157/69; PULSE 100; RESP 20; TEMP 37.6; O2SAT 92
[2022-08-28] VITALS (8 sets, daily range): BP systolic 130–168; BP diastolic 58–73; PULSE 86–99; RESP 17–20; TEMP 36.1–37.1; O2SAT 90–94
[2022-08-28] MEDS: Acetaminophen 325 MG TABLET 650 MG PO ×3 (05:50→19:38)
[2022-08-28 06:30] LABS: MANUAL DIFF FLAG NO
[2022-08-28 06:36] LABS: Basophils Percent Auto 0.2 % (0-2); Hematocrit 34.6 % (37.0-47.0); Hemoglobin 11.5 g/dl (12.0-16.0); Imm Gran Abs Auto 0.02 X10*3/uL (0.00-0.03); Imm Gran Pct Auto 0.4 % (0.0-0.4); Lymphocytes Percent Auto 17.2 % (20-40); Mean Corpuscular HGB Conc 33.2 g/dl (31.0-35.0); Mean Corpuscular Volume 96.4 fL (80.0-98.0); Mean Platelet Volume 10.2 fL (9.4-12.3); Monocytes Absolute Auto 0.3 X10*3/uL (0.1-1.2); Neutrophils Absolute Auto 4.2 x10*3/uL (2.0-8.3); Neutrophils Percent Auto 76.2 % (45-73); Platelet Count 130 X10*3/uL (160-400); Red Blood Count 3.59 X10*6/uL (4.20-5.50); Red Cell Distribution Width 12.5 % (11.0-16.0); White Blood Count 5.5 X10*3/uL (4.8-10.8)
[2022-08-28 07:13] LABS: Anion Gap 14 (12-20); Blood Urea Nitrogen 22 mg/dL (9-16); Calcium 8.7 mg/dL (8.4-10.2); Carbon Dioxide 25 mmol/L (22-29); Chloride 102 mmol/L (96-108); Creatinine Clr Calc Pharmacy 109.1; Estimated Glomerular Filt Rate > 60; Glucose Random 166 mg/dL (60-115); Potassium 4.2 mmol/L (3.3-5.1); Sodium 137 mmol/L (135-145)
[2022-08-28 07:56] LABS: Magnesium 1.8 mg/dL (1.6-2.6)
[2022-08-28] MEDS: Atorvastatin Calcium 10 MG TABLET PO (08:09)
[2022-08-28] MEDS: lisinopriL 5 MG TABLET PO (08:09)
[2022-08-28] MEDS: 0.9 % Sodium Chloride Flush 3 ML SYRINGE IVFLUSH ×3 (08:10→20:03)
--- NOTE | 2022-08-28 10:10 | P.PNIM_ITS ---
Subjective Subjective Date of Service: 08/28/22 Review of Systems Follow-up pneumonia Still with dry cough and pleuritic chest pain Physical Exam Vital Signs: Vital Signs: Last Vital Signs Temp 98.2 F 08/28/22 08:00 Pulse 88 08/28/22 08:00 Resp 18 08/28/22 08:00 BP 137/63 08/28/22 08:00 Pulse Ox 91 L 08/28/22 08:00 O2 Del Method 08/28/22 08:00 O2 Flow Rate 2 08/28/22 08:00 BMI result Body Mass Index 35.7 Appearing in no acute distress lung sounds are clear to auscultation heart regular rate rhythm, clear S1, S2 positive bowel sounds, abdomen is soft, nontender neuro patient is alert x3, no focal deficits Objective Data Active Medications Acetaminophen (Acetaminophen 325 Mg Tablet) 650 mg PO Q6H PRN PRN Reason: Pain, Mild (Pain Scale 1-3) Last Admin: 08/28/22 05:50 Dose: 650 mg Documented By: GUILLERMO Albuterol Sulfate (Albuterol Sulfate (0.083%) 2.5 Mg/3 Ml Vial.Neb) 2.5 mg INHALE RQ4H WHILE AWAKE COUNT INCLUDES THE [facility] Atorvastatin Calcium (Atorvastatin Calcium 10 Mg Tablet) 10 mg PO DAILY COUNT INCLUDES THE [facility] Last Admin: 08/28/22 08:09 Dose: 10 mg Documented By: ZAYDA Enoxaparin Sodium (Enoxaparin Sodium 40 Mg/0.4 Ml Syringe) 40 mg SUBCUT Q24H COUNT INCLUDES THE [facility] Last Admin: 08/27/22 20:19 Dose: 40 mg Documented By: JACKIE Guaifenesin (Guaifenesin La 600 Mg Tab.Er.12h) 1,200 mg PO BID COUNT INCLUDES THE [facility] Ceftriaxone Sodium 1 gm/ (Sodium Chloride) 50 mls @ 100 mls/hr IV Q24H COUNT INCLUDES THE [facility] Azithromycin 500 mg/ Sodium (Chloride) 250 mls @ 125 mls/hr IV Q24H COUNT INCLUDES THE [facility] Insulin Glargine (Insulin Glargine,Hum.Rec.Anlog 100 Unit/Ml 10 Ml Vial) 80 unit SUBCUT BEDTIME COUNT INCLUDES THE [facility] Last Admin: 08/27/22 20:33 Dose: 80 unit Documented By: JACKIE Lisinopril (Lisinopril 5 Mg Tablet) 5 mg PO DAILY COUNT INCLUDES THE [facility]; Protocol Last Admin: 08/28/22 08:09 Dose: 5 mg Documented By: ZAYDA Ondansetron HCl (Ondansetron Hcl 4 Mg/2 Ml Vial) 4 mg IVPUSH Q8H PRN PRN Reason: Nausea and Vomiting Pharmacy Consult (Consult Rx Perform Med Rec) 1 each MISCELLANE ONCE PRN PRN Reason: Consult order Polyethylene Glycol (Polyethylene Glycol 3350 17 Gm Powd.Pack) 17 gm PO DAILY PRN PRN Reason: Constipation Sodium Chloride (0.9 % Sodium Chloride Flush 3 Ml Syringe) 3 ml IVFLUSH QSHIFT COUNT INCLUDES THE [facility] Last Admin: 08/28/22 08:10 Dose: 3 ml Documented By: ZAYDA Labs 08/28/22 05:50 08/28/22 05:50 Labs: Laboratory Results - last 24 hr 08/27/22 08/27/22 08/27/22 12:17 15:46 16:58 MCV MCH MCHC RDW Plt Count MPV Immature Gran % (Auto) Neut % (Auto) Lymph % (Auto) Dickinson % (Auto) Eos % (Auto) Baso % (Auto) Lymph # (Auto) Dickinson # (Auto) Eos # (Auto) Baso # (Auto) Abs Immat Gran (auto) Absolute Neuts (auto) Absolute Nucleated RBC Nucleated RBC % (auto) PT INR APTT Anion Gap Estim Creat Clear Calc Estimated GFR POC Glucose 165 H Random Glucose Lactic Acid Calcium Magnesium Total Bilirubin AST ALT Alkaline Phosphatase B-Natriuretic Peptide Total Protein Albumin Urine Color Yellow Urine Appearance Clear Urine pH 5.0 Ur Specific Cavalier 1.020 Urine Protein 30 (1+) H Urine Glucose (UA) Negative Urine Ketones Negative Urine Blood Trace H Urine Nitrite Positive H Ur Leukocyte Esterase Small (1+) H Urine RBC 0-2 Urine WBC 6-10 H Ur Squamous Epith Cells 0-2 Urine Bacteria 4+ Hyaline Casts 0-2 Influenza Type A (PCR) NEGATIVE Influenza Type B (PCR) NEGATIVE RSV RNA Qual (PCR) NEGATIVE SARS-CoV-2 RNA (RT-PCR) NEGATIVE 08/27/22 08/27/22 08/27/22 17:07 17:07 17:07 MCV 94.2 MCH 32.1 MCHC 34.1 RDW 12.3 Plt Count 127 L MPV 10.0 Immature Gran % (Auto) 0.6 H Neut % (Auto) 84.3 H Lymph % (Auto) 9.5 L Dickinson % (Auto) 5.0 Eos % (Auto) 0.3 Baso % (Auto) 0.3 Lymph # (Auto) 0.7 L Dickinson # (Auto) 0.4 Eos # (Auto) 0.0 Baso # (Auto) 0.0 Abs Immat Gran (auto) 0.05 H Absolute Neuts (auto) 6.6 Absolute Nucleated RBC 0.000 Nucleated RBC % (auto) 0.0 PT INR APTT Anion Gap Estim Creat Clear Calc Estimated GFR POC Glucose Random Glucose Lactic Acid 1.4 Calcium Magnesium Total Bilirubin AST ALT Alkaline Phosphatase B-Natriuretic Peptide 70 Total Protein Albumin Urine Color Urine Appearance Urine pH Ur Specific Cavalier Urine Protein Urine Glucose (UA) Urine Ketones Urine Blood Urine Nitrite Ur Leukocyte Esterase Urine RBC Urine WBC Ur Squamous Epith Cells Urine Bacteria Hyaline Casts Influenza Type A (PCR) Influenza Type B (PCR) RSV RNA Qual (PCR) SARS-CoV-2 RNA (RT-PCR) 08/27/22 08/27/22 08/28/22 17:07 17:07 05:50 MCV 96.4 MCH 32.0 MCHC 33.2 RDW 12.5 Plt Count 130 L MPV 10.2 Immature Gran % (Auto) 0.4 Neut % (Auto) 76.2 H Lymph % (Auto) 17.2 L Dickinson % (Auto) 6.0 Eos % (Auto) 0.0 Baso % (Auto) 0.2 Lymph # (Auto) 1.0 L Dickinson # (Auto) 0.3 Eos # (Auto) 0.0 Baso # (Auto) 0.0 Abs Immat Gran (auto) 0.02 Absolute Neuts (auto) 4.2 Absolute Nucleated RBC 0.000 Nucleated RBC % (auto) 0.0 PT 12.8 INR 1.1 APTT 28.5 Anion Gap 15 Estim Creat Clear Calc 103.4 Estimated GFR > 60 POC Glucose Random Glucose 188 H Lactic Acid Calcium 9.0 Magnesium 1.4 L* Total Bilirubin 0.6 AST 54 H ALT 68 H Alkaline Phosphatase 101 B-Natriuretic Peptide Total Protein 6.6 Albumin 3.8 Urine Color Urine Appearance Urine pH Ur Specific Cavalier Urine Protein Urine Glucose (UA) Urine Ketones Urine Blood Urine Nitrite Ur Leukocyte Esterase Urine RBC Urine WBC Ur Squamous Epith Cells Urine Bacteria Hyaline Casts Influenza Type A (PCR) Influenza Type B (PCR) RSV RNA Qual (PCR) SARS-CoV-2 RNA (RT-PCR) 08/28/22 05:50 MCV MCH MCHC RDW Plt Count MPV Immature Gran % (Auto) Neut % (Auto) Lymph % (Auto) Dickinson % (Auto) Eos % (Auto) Baso % (Auto) Lymph # (Auto) Dickinson # (Auto) Eos # (Auto) Baso # (Auto) Abs Immat Gran (auto) Absolute Neuts (auto) Absolute Nucleated RBC Nucleated RBC % (auto) PT INR APTT Anion Gap 14 Estim Creat Clear Calc 109.1 Estimated GFR > 60 POC Glucose Random Glucose 166 H Lactic Acid Calcium 8.7 Magnesium 1.8 Total Bilirubin AST ALT Alkaline Phosphatase B-Natriuretic Peptide Total Protein Albumin Urine Color Urine Appearance Urine pH Ur Specific Cavalier Urine Protein Urine Glucose (UA) Urine Ketones Urine Blood Urine Nitrite Ur Leukocyte Esterase Urine RBC Urine WBC Ur Squamous Epith Cells Urine Bacteria Hyaline Casts Influenza Type A (PCR) Influenza Type B (PCR) RSV RNA Qual (PCR) SARS-CoV-2 RNA (RT-PCR) Microbiology Microbiology Results: Microbiology 08/27/22 Unknown Urine Culture - Preliminary Urine clean catch - Urine krishnan top Culture in progress. Assessment and Plan (1) Aspiration pneumonia: Status: Acute Plan 62-year-old woman admitted with possible aspiration pneumonia plan Aspiration pneumonia versus community-acquired pneumonia continue Rocephin and azithromycin Speech bedside swallow evaluation pending Supplemental oxygen as needed Monitor for hypoxia Mucinex for dry cough DuoNebs every 4 hours while awake UTI On Rocephin Follow urine culture Hypomagnesemia. Resolved Repleted Diabetes mellitus type 2 Sliding scale,? Lantus, ADA diet Hypertension. Improved elevated blood pressure reading, did not take blood pressure medications today give 1 dose of 5 mg of lisinopril now Continue home medications Hyperlipidemia Continue statin Normocytic anemia No signs of bleeding Follow CBC Obesity.? BMI 35.9 Discussed importance of weight management as this may be contributing to worsening of other comorbidities DVT prophylaxis Lovenox Attending Dr. Yeboah Full code Observation Time Spent With Patient Time: Total time managing care of this patient today ____ minutes. Quality Stroke Does the patient have a stroke diagnosis?: No VTE Prior VTE?: No VTE Risk Level:: Medical - moderate - high VTE Device Contraindication: Treatment Not Indicated VTE Drug Contraindication: N/A - Med Ordered
[2022-08-28] MEDS: guaiFENesin LA 600 MG TAB.ER.12H 1200 MG PO ×2 (10:36→19:43)
[2022-08-28] MEDS: Albuterol Sulfate (0.083%) 2.5 MG/3 ML VIAL.NEB INHALE ×3 (10:53→19:37)
[2022-08-28] MEDS: Ibuprofen 400 MG TABLET PO (12:10)
[2022-08-28 12:20] LABS: Glucose, Whole Blood 264 mg/dL (60-115)
--- NOTE | 2022-08-28 13:05 | MHC.SL.SWA ---
Speech Pathologist Impression: WFL Risk of Aspiration Due to: History of Pneumonia Dysphasia Diet Status: No Change Liquid Consistency and Strategies for Safe Swallow: Liquid Intake Recommendation: Thin Liquid Intake Strategies: Small Sips Solid Food Consistency: Dietary Recommendations: Regular Additional Modifications to Solid Foods: Swallow deemed to be WFL. Recommend pt continue with regular texture diet and thin liquids. TELETYPE CLERK to f/u 1x time to ensure tolerance. Oral Medication Intake: Whole with Liquid Please contact the pharmacy regarding appropriate crushable or liquid drug formulations that are available whenever modified delivery is recommended. Compensatory Strategies and Precautions to be Taken for Safe Swallow: Sitting Upright (90 deg) Small Bites and Sips Rate of Ingestion Change Supervision While Eating and Drinking for Safe Swallow: None Needed Swallowing Recommended Treatments: Compens. Strategy Educat. Recommendation for Speech: Inpatient Speech Therapy Comment: TELETYPE CLERK to f/u 1x Regional Merchandising Manager Clinican/Clinical Fellow: No Supervisory Statement: I have reviewed and agree with the student/clinical fellow's documentation: N/A Speech Language Pathologist: Astrid Lundy M.A., [facility]-TELETYPE CLERK
[2022-08-28] MEDS: Insulin Lispro 100 UNIT/ML 3 ML VIAL SUBCUT ×3 (13:32→20:03)
--- NOTE | 2022-08-28 16:19 | MHC.CM.PN ---
PT REPORTS HE LIVES WITH HER FRIEND AND IS INDEPENDENT WITH CARE PT HAS NO SERVICES AND ONLY DM SUPPLIES FOR DME PT IS [employer] WITH [employer] SHE SAYS HER FRIEND ANGELA IS HER HCP, COPY REQUESTED PCP: DOE VILCHIS DELIVERED DCP: HOME NO SERVICES VIA PRIVATE TRANSPORT
[2022-08-28 16:26] LABS: Glucose, Whole Blood 215 mg/dL (60-115)
[2022-08-28] MEDS: Benzonatate 100 MG CAPSULE PO (16:51)
[2022-08-28] MEDS: cefTRIAXone sodium 1 GM in 0.9 % Sodium Chloride 50 ML IV (17:31)
[2022-08-28] MEDS: Enoxaparin Sodium 40 MG/0.4 ML SYRINGE SUBCUT (17:31)
[2022-08-28] MEDS: Azithromycin 500 MG in 0.9 % Sodium Chloride 250 ML 125 MG IV (18:13)
[2022-08-28 19:54] LABS: Glucose, Whole Blood 280 mg/dL (60-115)
[2022-08-28] MEDS: guaiFENesin DM 100/10/5 ML 5 ML SYRUP PO (20:04)
[2022-08-28] MEDS: Insulin Glargine,Hum.rec.anlog 100 UNIT/ML 10 ML VIAL 80 UNIT SUBCUT (20:04)
[2022-08-29] VITALS (10 sets, daily range): BP systolic 125–145; BP diastolic 57–94; PULSE 73–97; RESP 18–19; TEMP 36.2–36.9; O2SAT 90–95
[2022-08-29] MEDS: Benzonatate 100 MG CAPSULE PO ×3 (04:50→20:16)
[2022-08-29] MEDS: guaiFENesin DM 100/10/5 ML 5 ML SYRUP PO ×3 (04:51→20:17)
[2022-08-29 06:57] LABS: Glucose, Whole Blood 155 mg/dL (60-115)
[2022-08-29] MEDS: Atorvastatin Calcium 10 MG TABLET PO (07:55)
[2022-08-29] MEDS: lisinopriL 5 MG TABLET PO (07:55)
[2022-08-29] MEDS: Insulin Lispro 100 UNIT/ML 3 ML VIAL SUBCUT ×4 (07:55→20:15)
[2022-08-29] MEDS: guaiFENesin LA 600 MG TAB.ER.12H 1200 MG PO ×2 (07:55→20:16)
[2022-08-29] MEDS: 0.9 % Sodium Chloride Flush 3 ML SYRINGE IVFLUSH ×3 (07:56→20:15)
[2022-08-29] MEDS: Albuterol Sulfate (0.083%) 2.5 MG/3 ML VIAL.NEB INHALE ×4 (08:33→20:03)
--- NOTE | 2022-08-29 09:42 | HO.PM.IMPN ---
Subjective Subjective Date of Service: 08/29/22 Review of Systems Follow up COPD exacerbation still on high flow some sob with ambulation Physical Exam Vital Signs: Vital Signs: Last Vital Signs Temp 98 F 08/29/22 06:54 Pulse 92 08/29/22 08:34 Resp 19 08/29/22 08:34 BP 134/94 H 08/29/22 06:54 Pulse Ox 93 08/29/22 06:54 O2 Del Method 08/29/22 06:54 O2 Flow Rate 3 08/29/22 06:54 BMI result Body Mass Index 35.7 Appearing in no acute distress lung sounds are clear to auscultation heart regular rate rhythm, clear S1, S2 positive bowel sounds, abdomen is soft, nontender neuro patient is alert x3, no focal deficits Objective Data Active Medications Acetaminophen (Acetaminophen 325 Mg Tablet) 650 mg PO Q6H PRN PRN Reason: Pain, Mild (Pain Scale 1-3) Last Admin: 08/28/22 19:38 Dose: 650 mg Documented By: CATHY Albuterol Sulfate (Albuterol Sulfate (0.083%) 2.5 Mg/3 Ml Vial.Neb) 2.5 mg INHALE RQ4H WHILE AWAKE [facility] Last Admin: 08/29/22 08:33 Dose: 2.5 mg Documented By: JOSE A Atorvastatin Calcium (Atorvastatin Calcium 10 Mg Tablet) 10 mg PO DAILY [facility] Last Admin: 08/29/22 07:55 Dose: 10 mg Documented By: ZAYDA Benzonatate (Benzonatate 100 Mg Capsule) 100 mg PO TID PRN PRN Reason: Cough Last Admin: 08/29/22 04:50 Dose: 100 mg Documented By: MELLISSA Dextrose (Dextrose 50 % 25 Gm/50 Ml Syringe) 25 gm IVPUSH Q15M PRN; Protocol PRN Reason: per Hypoglycemia Standing Ord. Enoxaparin Sodium (Enoxaparin Sodium 40 Mg/0.4 Ml Syringe) 40 mg SUBCUT Q24H [facility] Last Admin: 08/28/22 17:31 Dose: 40 mg Documented By: ELIER Glucose (Glucose Gel 15 Gm Gel..Gram.) 15 gm PO Q15M PRN; Protocol PRN Reason: per Hypoglycemia Standing Ord. Guaifenesin (Guaifenesin La 600 Mg Tab.Er.12h) 1,200 mg PO BID [facility] Last Admin: 08/29/22 07:55 Dose: 1,200 mg Documented By: ZAYDA Guaifenesin/Dextromethorphan (Guaifenesin Dm 100/10/5 Ml 5 Ml Syrup) 5 ml PO Q4H PRN PRN Reason: cough Last Admin: 08/29/22 04:51 Dose: 5 ml Documented By: MELLISSA Ceftriaxone Sodium 1 gm/ (Sodium Chloride) 50 mls @ 100 mls/hr IV Q24H [facility] Last Infusion: 08/28/22 18:01 Dose: 0 mls/hr Documented By: ELIER Azithromycin 500 mg/ Sodium (Chloride) 250 mls @ 125 mls/hr IV Q24H [facility] Last Infusion: 08/28/22 20:46 Dose: 0 mls/hr Documented By: CATHY Ibuprofen (Ibuprofen 400 Mg Tablet) 400 mg PO Q6H PRN PRN Reason: headache Last Admin: 08/28/22 12:10 Dose: 400 mg Documented By: ZAYDA Insulin Glargine (Insulin Glargine,Hum.Rec.Anlog 100 Unit/Ml 10 Ml Vial) 80 unit SUBCUT BEDTIME [facility] Last Admin: 08/28/22 20:04 Dose: 80 unit Documented By: CATHY Insulin Human Lispro (Insulin Lispro 100 Unit/Ml 3 Ml Vial) 0 unit SUBCUT QIDACHS [facility]; Protocol Last Admin: 08/29/22 07:55 Dose: 2 unit Documented By: ZAYDA Lisinopril (Lisinopril 5 Mg Tablet) 5 mg PO DAILY [facility]; Protocol Last Admin: 08/29/22 07:55 Dose: 5 mg Documented By: ZAYDA Ondansetron HCl (Ondansetron Hcl 4 Mg/2 Ml Vial) 4 mg IVPUSH Q8H PRN PRN Reason: Nausea and Vomiting Pharmacy Consult (Consult Rx Perform Med Rec) 1 each MISCELLANE ONCE PRN PRN Reason: Consult order Polyethylene Glycol (Polyethylene Glycol 3350 17 Gm Powd.Pack) 17 gm PO DAILY PRN PRN Reason: Constipation Sodium Chloride (0.9 % Sodium Chloride Flush 3 Ml Syringe) [facility] Last Admin: 08/29/22 07:56 Dose: 3 ml Documented By: ZAYDA Labs 08/28/22 05:50 08/28/22 05:50 Labs: Laboratory Results - last 24 hr 08/28/22 08/28/22 08/28/22 12:16 16:04 19:28 POC Glucose 264 H 215 H 280 H 08/29/22 06:53 POC Glucose 155 H Microbiology Microbiology Results: Microbiology 08/27/22 Unknown Urine Culture - Preliminary Urine clean catch - Urine krishnan top Gram negative leana 08/27/22 17:12 Blood Culture - Preliminary Blood - Venous No growth after 24 hours. 08/27/22 17:12 Blood Culture - Preliminary Blood - Venous No growth after 24 hours. Assessment and Plan (1) Aspiration pneumonia: Status: Acute Plan 62-year-old woman admitted with possible aspiration pneumonia plan Community-acquired pneumonia continue Rocephin and azithromycin Supplemental oxygen as needed Monitor for hypoxia Mucinex for dry cough, tesselon DuoNebs every 4 hours while awake prednisone 40mg daily MSK pain secondary to cough tesselon tylenol and IBU as needed GNR UTI On Rocephin Follow final urine culture Hypomagnesemia. Resolved Repleted Diabetes mellitus type 2 Sliding scale,? Lantus, ADA diet Hypertension. Improved elevated blood pressure reading, did not take blood pressure medications today give 1 dose of 5 mg of lisinopril now Continue home medications Hyperlipidemia Continue statin Normocytic anemia No signs of bleeding Follow CBC Obesity.? BMI 35.9 Discussed importance of weight management as this may be contributing to worsening of other comorbidities DVT prophylaxis Lovenox Attending Dr. Yeboah Full code Observation Time Spent With Patient Time: Total time managing care of this patient today ____ minutes. Quality Stroke Does the patient have a stroke diagnosis?: No VTE Prior VTE?: No VTE Risk Level:: Medical - moderate - high VTE Device Contraindication: Treatment Not Indicated VTE Drug Contraindication: N/A - Med Ordered
[2022-08-29 11:04] LABS: Glucose, Whole Blood 287 mg/dL (60-115)
[2022-08-29] MEDS: predniSONE 20 MG TABLET 40 MG PO (12:04)
[2022-08-29] MEDS: Ibuprofen 400 MG TABLET PO (12:27)
--- NOTE | 2022-08-29 12:30 | MHC.SL.SWA ---
Speech Pathologist Impression: Risk of Aspiration Due to: History of Pneumonia Dysphasia Diet Status: Patient is tolerating Regular Diet with Thin Liquids and is able to feed self independently. Recommend continue on Regular Diet with Thin Liquids, pills whole with liquid. this is the least restrictive diet and patient's baseline, recommend discharge speech at this time. Please re-contact if additional concerns arise. Liquid Consistency and Strategies for Safe Swallow: Liquid Intake Recommendation: Thin Liquid Intake Strategies: Small Sips Solid Food Consistency: Dietary Recommendations: Regular Additional Modifications to Solid Foods: Swallow deemed to be WFL. Recommend pt continue with regular texture diet and thin liquids. DIAL LATHE OPERATOR to f/u 1x time to ensure tolerancee. Oral Medication Intake: Whole with Liquid Please contact the pharmacy regarding appropriate crushable or liquid drug formulations that are available whenever modified delivery is recommended. Compensatory Strategies and Precautions to be Taken for Safe Swallow: Sitting Upright (90 deg) Liquids from Cup Liquids from Straw Small Bites and Sips Supervision While Eating and Drinking for Safe Swallow: None Needed Foods to Avoid: Swallowing Recommended Treatments: Compens. Strategy Educat. Recommendation for Speech: Inpatient Speech Therapy Comment: Patient seen at lunch for toleration of recommended REGULAR diet with THIN liquids. Patient was initially observed taking pills with thin liquid by straw, all of which she managed well with no clinical signs of aspiration. Patient had ample food, DIAL LATHE OPERATOR assisted with transferring juices to cup. Patient elected to have soup on tray (beef barley) reporting I love soup!. Patient took bites of the barley, meat and tomato pieces in the soup, managed the mixed texture with the broth, produced a timely rotary chew and timely swallow with laryngeal elevation wfl, no clinical signs of aspiration. Patient's main c/o is with persistent coughing (not while eating), reports she has never had incident of choking or coughing when eating. When seen yesterday by DIAL LATHE OPERATOR, swallow was determined to be WFL. Patient is tolerating Regular Diet with Thin Liquids and is able to feed self independently. Recommend continue on Regular Diet with Thin Liquids, pills whole with liquid. this is the least restrictive diet and patient's baseline, recommend discharge speech at this time. Please re-contact if additional concerns arise. Frequency/Duration: Date Range for Service Req: Timeline to reassess: Nursing Home Assistant Administrator Clinican/Clinical Fellow: No Supervisory Statement: I have reviewed and agree with the student/clinical fellow's documentation: N/A Speech Language Pathologist: Glory Lackey M.A., [facility]-DIAL LATHE OPERATOR
[2022-08-29 16:30] LABS: Glucose, Whole Blood 324 mg/dL (60-115)
[2022-08-29] MEDS: cefTRIAXone sodium 1 GM in 0.9 % Sodium Chloride 50 ML IV (16:48)
[2022-08-29] MEDS: Enoxaparin Sodium 40 MG/0.4 ML SYRINGE SUBCUT (16:49)
[2022-08-29] MEDS: Azithromycin 500 MG in 0.9 % Sodium Chloride 250 ML 125 MG IV (16:57)
--- NOTE | 2022-08-29 18:06 | PC.NURSE ---
Assumed pt care at 1530. Pt is alert and oriented x4 and pleasnt to work with. Pt noted to have intermittent productive cough. LS rhonchorus and dim with coarse crackles to the bases.
[2022-08-29 20:07] LABS: Glucose, Whole Blood 414 mg/dL (60-115)
[2022-08-29] MEDS: Acetaminophen 325 MG TABLET 650 MG PO (20:15)
[2022-08-29] MEDS: Insulin Glargine,Hum.rec.anlog 100 UNIT/ML 10 ML VIAL 80 UNIT SUBCUT (20:15)
[2022-08-30] VITALS (8 sets, daily range): BP systolic 139–172; BP diastolic 65–88; PULSE 74–98; RESP 18; TEMP 36.3–36.8; O2SAT 91–94
[2022-08-30] MEDS: guaiFENesin DM 100/10/5 ML 5 ML SYRUP PO ×3 (00:17→15:48)
--- NOTE | 2022-08-30 04:27 | MHC.PIE ---
late entry 08/29 1999 p; poc 414 note; lantus 80u scheduled humalog 10 u per ss i; dr roche notified; give scheduled lantus and humalog [facility] ss e[facility]
[2022-08-30] MEDS: Albuterol Sulfate (0.083%) 2.5 MG/3 ML VIAL.NEB INHALE ×3 (07:24→19:41)
[2022-08-30 07:34] LABS: Glucose, Whole Blood 125 mg/dL (60-115)
[2022-08-30] MEDS: 0.9 % Sodium Chloride Flush 3 ML SYRINGE IVFLUSH ×2 (08:03→20:53)
[2022-08-30] MEDS: predniSONE 20 MG TABLET 40 MG PO (08:03)
[2022-08-30] MEDS: Atorvastatin Calcium 10 MG TABLET PO (08:03)
[2022-08-30] MEDS: guaiFENesin LA 600 MG TAB.ER.12H 1200 MG PO ×2 (08:03→21:01)
[2022-08-30] MEDS: lisinopriL 5 MG TABLET PO (08:03)
[2022-08-30] MEDS: Ibuprofen 400 MG TABLET PO (08:16)
[2022-08-30] MEDS: Benzonatate 100 MG CAPSULE PO (08:16)
[2022-08-30 11:25] LABS: Glucose, Whole Blood 335 mg/dL (60-115)
[2022-08-30] MEDS: Insulin Lispro 100 UNIT/ML 3 ML VIAL SUBCUT ×3 (11:40→21:01)
--- NOTE | 2022-08-30 13:18 | MHC.CM.PN ---
Per MD rounds no dc today. Patient continues with wheezing and SOB. Patient is on steriods DP home self care. Patient will arrange for transportation.
--- NOTE | 2022-08-30 14:42 | P.PNIM_ITS ---
Subjective Subjective Date of Service: 08/30/22 Interval History: Notes improvement from admission; still short of breath when speaking and minimal movement Review of Systems Admit shortness of breath with minimal exertion Denies chest pain Denies nausea vomiting diarrhea Denies fever chills Physical Exam Vital Signs: Vital Signs: Last Vital Signs Temp 97.3 F 08/30/22 11:07 Pulse 74 08/30/22 11:07 Resp 18 08/30/22 11:07 BP 139/65 08/30/22 11:07 Pulse Ox 94 08/30/22 11:07 O2 Del Method 08/30/22 11:07 O2 Flow Rate 3.0 08/30/22 11:07 BMI result Body Mass Index 35.7 Const: Other: Awake alert oriented x3 no acute distress Resp: Other: Diminished at bases with expiratory wheezes bilateral bases Cardio: Other: No S4; positive S1-S2; no S3 murmurs rubs or gallops GI: Other: Soft nontender nondistended normoactive bowel sounds Extrem: Other: No edema bilaterally Objective Data Active Medications Acetaminophen (Acetaminophen 325 Mg Tablet) 650 mg PO Q6H PRN PRN Reason: Pain, Mild (Pain Scale 1-3) Last Admin: 08/29/22 20:15 Dose: 650 mg Documented By: CATHY Albuterol Sulfate (Albuterol Sulfate (0.083%) 2.5 Mg/3 Ml Vial.Neb) 2.5 mg INHALE RQ4H WHILE AWAKE [facility] Last Admin: 08/30/22 11:31 Dose: Not Given Documented By: BOB Non-Admin Reason: pt not avail Atorvastatin Calcium (Atorvastatin Calcium 10 Mg Tablet) 10 mg PO DAILY [facility] Last Admin: 08/30/22 08:03 Dose: 10 mg Documented By: ZAYDA Benzonatate (Benzonatate 100 Mg Capsule) 100 mg PO TID PRN PRN Reason: Cough Last Admin: 08/30/22 08:16 Dose: 100 mg Documented By: ZAYDA Dextrose (Dextrose 50 % 25 Gm/50 Ml Syringe) 25 gm IVPUSH Q15M PRN; Protocol PRN Reason: per Hypoglycemia Standing Ord. Enoxaparin Sodium (Enoxaparin Sodium 40 Mg/0.4 Ml Syringe) 40 mg SUBCUT Q24H [facility] Last Admin: 08/29/22 16:49 Dose: 40 mg Documented By: LAVELLE Glucose (Glucose Gel 15 Gm Gel..Gram.) 15 gm PO Q15M PRN; Protocol PRN Reason: per Hypoglycemia Standing Ord. Guaifenesin (Guaifenesin La 600 Mg Tab.Er.12h) 1,200 mg PO BID [facility] Last Admin: 08/30/22 08:03 Dose: 1,200 mg Documented By: ZAYDA Guaifenesin/Dextromethorphan (Guaifenesin Dm 100/10/5 Ml 5 Ml Syrup) 5 ml PO Q4H PRN PRN Reason: cough Last Admin: 08/30/22 08:16 Dose: 5 ml Documented By: ZAYDA Ceftriaxone Sodium 1 gm/ (Sodium Chloride) 50 mls @ 100 mls/hr IV Q24H [facility] Last Infusion: 08/29/22 17:24 Dose: 0 mls/hr Documented By: LAVELLE Azithromycin 500 mg/ Sodium (Chloride) 250 mls @ 125 mls/hr IV Q24H [facility] Last Infusion: 08/29/22 20:22 Dose: 0 mls/hr Documented By: CATHY Ibuprofen (Ibuprofen 400 Mg Tablet) 400 mg PO Q6H PRN PRN Reason: headache Last Admin: 08/30/22 08:16 Dose: 400 mg Documented By: ZAYDA Insulin Glargine (Insulin Glargine,Hum.Rec.Anlog 100 Unit/Ml 10 Ml Vial) 80 unit SUBCUT BEDTIME [facility] Last Admin: 08/29/22 20:15 Dose: 80 unit Documented By: CATHY Insulin Human Lispro (Insulin Lispro 100 Unit/Ml 3 Ml Vial) 0 unit SUBCUT QIDACHS [facility]; Protocol Last Admin: 08/30/22 11:40 Dose: 8 unit Documented By: ZAYDA Lisinopril (Lisinopril 5 Mg Tablet) 5 mg PO DAILY [facility]; Protocol Last Admin: 08/30/22 08:03 Dose: 5 mg Documented By: ZAYDA Methylprednisolone Sodium Succinate (Methylprednisolone Sod Succ 125 Mg/2 Ml Vial) 60 mg IVPUSH Q6H [facility] Ondansetron HCl (Ondansetron Hcl 4 Mg/2 Ml Vial) 4 mg IVPUSH Q8H PRN PRN Reason: Nausea and Vomiting Pharmacy Consult (Consult Rx Perform Med Rec) 1 each MISCELLANE ONCE PRN PRN Reason: Consult order Polyethylene Glycol (Polyethylene Glycol 3350 17 Gm Powd.Pack) 17 gm PO DAILY PRN PRN Reason: Constipation Sodium Chloride (0.9 % Sodium Chloride Flush 3 Ml Syringe) 3 ml IVFLUSH QSHIFT ESTEF[facility] Last Admin: 08/30/22 08:03 Dose: 3 ml Documented By: ZAYDA Labs 08/28/22 05:50 08/28/22 05:50 Labs: Laboratory Results - last 24 hr 08/29/22 08/29/22 08/30/22 16:24 20:02 07:24 POC Glucose 324 H 414 H* 125 H 08/30/22 11:11 POC Glucose 335 H Microbiology Microbiology Results: Microbiology 08/27/22 Unknown Urine Culture - Final Urine clean catch - Urine krishnan top Klebsiella pneumoniae 08/27/22 17:12 Blood Culture - Preliminary Blood - Venous No growth after 48 hours. 08/27/22 17:12 Blood Culture - Preliminary Blood - Venous No growth after 48 hours. Assessment and Plan (1) Community acquired pneumonia: Status: Acute (2) UTI (urinary tract infection): Status: Acute (3) Diabetes mellitus: Status: Acute Plan 62-year-old woman admitted with community-acquired pneumonia and UTI. Still remains wheezy and short of breath at rest 1.Community-acquired pneumonia -Rocephin and azithromycin(3) -wean O2 as tolerated -DuoNebs p.r.n. 2.UTI(Klebsiella) - Rocephin(3) -Ceftin upon DC 3.DMII -continue Lantus as ordered; expect to adjust up with steroids -lispro correctional scale -adjust as indicated 4.Hypertension -acceptable control on lisinopril 5 mg daily -adjust as indicated Obesity.? BMI 35.9 Discussed importance of weight management as this may be contributing to worsening of other comorbidities Lovenox Full code Will require ongoing hospitalization for IV antibiotics to treat community- acquired pneumonia and IV steroids to facilitate O2 wean Time Spent With Patient Time: Total time managing care of this patient today ____ minutes. Quality Stroke Does the patient have a stroke diagnosis?: No VTE Prior VTE?: No VTE Risk Level:: Medical - moderate - high VTE Device Contraindication: Treatment Not Indicated VTE Drug Contraindication: N/A - Med Ordered
--- NOTE | 2022-08-30 15:19 | MHC.CM.PN ---
Patient meets INPT criteria PNA. Attempted to call Ronna Jaimes. No VM available. Review with documentation and request for return call to CM office.
[2022-08-30] MEDS: methylPREDNISolone Sod Succ 125 MG/2 ML VIAL IVPUSH (15:48)
[2022-08-30 16:30] LABS: Glucose, Whole Blood 381 mg/dL (60-115)
[2022-08-30] MEDS: cefTRIAXone sodium 1 GM in 0.9 % Sodium Chloride 50 ML IV (17:17)
[2022-08-30] MEDS: Enoxaparin Sodium 40 MG/0.4 ML SYRINGE SUBCUT (17:17)
[2022-08-30] MEDS: Azithromycin 500 MG in 0.9 % Sodium Chloride 250 ML 125 MG IV (18:12)
[2022-08-30 20:15] LABS: Glucose, Whole Blood 328 mg/dL (60-115)
[2022-08-30] MEDS: methylPREDNISolone Sod Succ 125 MG/2 ML VIAL 60 MG IVPUSH (21:01)
[2022-08-30] MEDS: Insulin Glargine,Hum.rec.anlog 100 UNIT/ML 10 ML VIAL 80 UNIT SUBCUT (21:02)
[2022-08-31] VITALS (8 sets, daily range): BP systolic 144–153; BP diastolic 60–69; PULSE 75–97; RESP 18–20; TEMP 36.3–37.1; O2SAT 93–99
[2022-08-31] MEDS: methylPREDNISolone Sod Succ 125 MG/2 ML VIAL 60 MG IVPUSH ×4 (03:25→21:22)
[2022-08-31] MEDS: guaiFENesin DM 100/10/5 ML 5 ML SYRUP PO ×2 (03:25→07:47)
[2022-08-31 06:33] LABS: MANUAL DIFF FLAG NO
[2022-08-31 06:38] LABS: Basophils Percent Auto 0.3 % (0-2); Hematocrit 32.5 % (37.0-47.0); Hemoglobin 10.8 g/dl (12.0-16.0); Imm Gran Abs Auto 0.02 X10*3/uL (0.00-0.03); Imm Gran Pct Auto 0.6 % (0.0-0.4); Lymphocytes Absolute Auto 0.9 X10*3/uL (1.2-4.9); Lymphocytes Percent Auto 24.8 % (20-40); Mean Corpuscular HGB Conc 33.2 g/dl (31.0-35.0); Mean Corpuscular Hemoglobin 31.3 pg (27.0-33.0); Mean Corpuscular Volume 94.2 fL (80.0-98.0); Mean Platelet Volume 9.9 fL (9.4-12.3); Monocytes Absolute Auto 0.1 X10*3/uL (0.1-1.2); Monocytes Percent Auto 3.9 % (2-11); Neutrophils Absolute Auto 2.6 x10*3/uL (2.0-8.3); Neutrophils Percent Auto 70.4 % (45-73); Platelet Count 145 X10*3/uL (160-400); Red Blood Count 3.45 X10*6/uL (4.20-5.50); Red Cell Distribution Width 12.1 % (11.0-16.0); White Blood Count 3.6 X10*3/uL (4.8-10.8)
[2022-08-31 07:40] LABS: Glucose, Whole Blood 231 mg/dL (60-115)
[2022-08-31] MEDS: Acetaminophen 325 MG TABLET 650 MG PO ×2 (07:47→14:42)
[2022-08-31] MEDS: lisinopriL 5 MG TABLET PO (07:47)
[2022-08-31] MEDS: guaiFENesin LA 600 MG TAB.ER.12H 1200 MG PO ×2 (07:48→21:22)
[2022-08-31] MEDS: Atorvastatin Calcium 10 MG TABLET PO (07:48)
[2022-08-31] MEDS: Insulin Lispro 100 UNIT/ML 3 ML VIAL SUBCUT ×4 (07:48→21:23)
[2022-08-31 07:50] LABS: Alanine Aminotransferase 49 U/L (0-31); Albumin Level 3.5 g/dL (3.5-5.0); Alkaline Phosphatase 81 U/L (39-117); Anion Gap 14 (12-20); Aspartate Amino Transferase 37 U/L (5-31); Bilirubin Total 0.4 mg/dL (0.0-1.0); Blood Urea Nitrogen 20 mg/dL (9-16); Calcium 8.7 mg/dL (8.4-10.2); Carbon Dioxide 26 mmol/L (22-29); Chloride 105 mmol/L (96-108); Creatinine Clr Calc Pharmacy 104.6; Estimated Glomerular Filt Rate > 60; Glucose Fasting 284 mg/dL (60-99); Potassium 4.5 mmol/L (3.3-5.1); Sodium 140 mmol/L (135-145); Total Protein 6.1 g/dL (6.5-8.0)
[2022-08-31] MEDS: 0.9 % Sodium Chloride Flush 3 ML SYRINGE IVFLUSH ×3 (07:50→23:59)
[2022-08-31] MEDS: Albuterol Sulfate (0.083%) 2.5 MG/3 ML VIAL.NEB INHALE ×4 (07:53→21:09)
[2022-08-31 11:28] LABS: Glucose, Whole Blood 373 mg/dL (60-115)
[2022-08-31] MEDS: Insulin Lispro 100 UNIT/ML 3 ML VIAL 10 UNIT SUBCUT ×2 (11:50→17:31)
[2022-08-31] MEDS: Insulin Glargine,Hum.rec.anlog 100 UNIT/ML 10 ML VIAL 10 UNIT SUBCUT (11:51)
[2022-08-31] MEDS: Benzonatate 100 MG CAPSULE PO (14:42)
--- NOTE | 2022-08-31 14:42 | P.PNIM_ITS ---
Subjective Subjective Date of Service: 08/31/22 Interval History: states breathing improved but still short of breath with exertion; using incentive spirometry every hour. Sugars elevated as expected on steroids Review of Systems denies chest pain Admits to shortness of breath and is improving Denies nausea vomiting diarrhea Denies fever chills Physical Exam Vital Signs: Vital Signs: Last Vital Signs Temp 98.4 F 08/31/22 11:17 Pulse 97 08/31/22 11:57 Resp 18 08/31/22 11:57 BP 147/69 H 08/31/22 11:17 Pulse Ox 94 08/31/22 11:17 O2 Del Method 08/31/22 11:17 O2 Flow Rate 2.0 08/31/22 11:17 BMI result Body Mass Index 35.7 Const: Other: awake alert oriented x3 no respiratory distress able speak i Resp: Other: diminished at bases with scattered expiratory wheezes Cardio: Other: no S4; positive S1-S2; no S3 murmurs r Extrem: Other: no edema bilaterally Objective Data Active Medications Acetaminophen (Acetaminophen 325 Mg Tablet) 650 mg PO Q6H PRN PRN Reason: Pain, Mild (Pain Scale 1-3) Last Admin: 08/31/22 07:47 Dose: 650 mg Documented By: CHRISTOS Albuterol Sulfate (Albuterol Sulfate (0.083%) 2.5 Mg/3 Ml Vial.Neb) 2.5 mg INHALE RQ4H WHILE AWAKE ON LICENSE OF [facility] Last Admin: 08/31/22 11:57 Dose: 2.5 mg Documented By: BOB Atorvastatin Calcium (Atorvastatin Calcium 10 Mg Tablet) 10 mg PO DAILY [facility] OF [facility] Last Admin: 08/31/22 07:48 Dose: 10 mg Documented By: CHRISTOS Benzonatate (Benzonatate 100 Mg Capsule) 100 mg PO TID PRN PRN Reason: Cough Last Admin: 08/30/22 08:16 Dose: 100 mg Documented By: ZAYDA Dextrose (Dextrose 50 % 25 Gm/50 Ml Syringe) 25 gm IVPUSH Q15M PRN; Protocol PRN Reason: per Hypoglycemia Standing Ord. Enoxaparin Sodium (Enoxaparin Sodium 40 Mg/0.4 Ml Syringe) 40 mg SUBCUT Q24H [facility] OF [facility] Last Admin: 08/30/22 17:17 Dose: 40 mg Documented By: RAJI Glucose (Glucose Gel 15 Gm Gel..Gram.) 15 gm PO Q15M PRN; Protocol PRN Reason: per Hypoglycemia Standing Ord. Guaifenesin (Guaifenesin La 600 Mg Tab.Er.12h) 1,200 mg PO BID [facility] OF [facility] Last Admin: 08/31/22 07:48 Dose: 1,200 mg Documented By: CHRISTOS Guaifenesin/Dextromethorphan (Guaifenesin Dm 100/10/5 Ml 5 Ml Syrup) 5 ml PO Q4H PRN PRN Reason: cough Last Admin: 08/31/22 07:47 Dose: 5 ml Documented By: CHRISTOS Ceftriaxone Sodium 1 gm/ (Sodium Chloride) 50 mls @ 100 mls/hr IV Q24H [facility] OF [facility] Last Infusion: 08/30/22 18:16 Dose: 0 mls/hr Documented By: RAJI Azithromycin 500 mg/ Sodium (Chloride) 250 mls @ 125 mls/hr IV Q24H [facility] OF [facility] Last Infusion: 08/30/22 21:03 Dose: 0 mls/hr Documented By: SANDOR Ibuprofen (Ibuprofen 400 Mg Tablet) 400 mg PO Q6H PRN PRN Reason: headache Last Admin: 08/30/22 08:16 Dose: 400 mg Documented By: ZAYDA Insulin Glargine (Insulin Glargine,Hum.Rec.Anlog 100 Unit/Ml 10 Ml Vial) 80 unit SUBCUT BEDTIME ON LICENSE OF [facility] Last Admin: 08/30/22 21:02 Dose: 80 unit Documented By: SANDOR Insulin Human Lispro (Insulin Lispro 100 Unit/Ml 3 Ml Vial) 0 unit SUBCUT QIDACHS ON LICENSE OF [facility]; Protocol Last Admin: 08/31/22 11:50 Dose: 10 unit Documented By: CHRISTOS Lisinopril (Lisinopril 5 Mg Tablet) 5 mg PO DAILY [facility] OF [facility]; Protocol Last Admin: 08/31/22 07:47 Dose: 5 mg Documented By: CHRISTOS Methylprednisolone Sodium Succinate (Methylprednisolone Sod Succ 125 Mg/2 Ml Vial) 60 mg IVPUSH Q6H ON LICENSE OF [facility] Last Admin: 08/31/22 07:46 Dose: 60 mg Documented By: CHRISTOS Ondansetron HCl (Ondansetron Hcl 4 Mg/2 Ml Vial) 4 mg IVPUSH Q8H PRN PRN Reason: Nausea and Vomiting Pharmacy Consult (Consult Rx Perform Med Rec) 1 each MISCELLANE ONCE PRN PRN Reason: Consult order Polyethylene Glycol (Polyethylene Glycol 3350 17 Gm Powd.Pack) 17 gm PO DAILY PRN PRN Reason: Constipation Sodium Chloride (0.9 % Sodium Chloride Flush 3 Ml Syringe) 3 ml IVFLUSH QSHIFT ON LICENSE OF [facility] Last Admin: 08/31/22 07:50 Dose: 3 ml Documented By: CHRISTOS Labs 08/31/22 05:27 08/31/22 05:27 Labs: Laboratory Results - last 24 hr 08/30/22 08/30/22 08/31/22 16:19 20:04 05:27 MCV 94.2 MCH 31.3 MCHC 33.2 RDW 12.1 Plt Count 145 L MPV 9.9 Immature Gran % (Auto) 0.6 H Neut % (Auto) 70.4 Lymph % (Auto) 24.8 [place] % (Auto) 3.9 Eos % (Auto) 0.0 Baso % (Auto) 0.3 Lymph # (Auto) 0.9 L [place] # (Auto) 0.1 Eos # (Auto) 0.0 Baso # (Auto) 0.0 Abs Immat Gran (auto) 0.02 Absolute Neuts (auto) 2.6 Absolute Nucleated RBC 0.000 Nucleated RBC % (auto) 0.0 Anion Gap Estim Creat Clear Calc Estimated GFR POC Glucose 381 H* 328 H Fasting Glucose Calcium Total Bilirubin AST ALT Alkaline Phosphatase Total Protein Albumin 08/31/22 08/31/22 08/31/22 05:27 07:36 11:11 MCV MCH MCHC RDW Plt Count MPV Immature Gran % (Auto) Neut % (Auto) Lymph % (Auto) [place] % (Auto) Eos % (Auto) Baso % (Auto) Lymph # (Auto) [place] # (Auto) Eos # (Auto) Baso # (Auto) Abs Immat Gran (auto) Absolute Neuts (auto) Absolute Nucleated RBC Nucleated RBC % (auto) Anion Gap 14 Estim Creat Clear Calc 104.6 Estimated GFR > 60 POC Glucose 231 H 373 H* Fasting Glucose 284 H Calcium 8.7 Total Bilirubin 0.4 AST 37 H ALT 49 H Alkaline Phosphatase 81 Total Protein 6.1 L Albumin 3.5 Assessment and Plan (1) Community acquired pneumonia: Status: Acute (2) UTI (urinary tract infection): Status: Acute (3) Diabetes mellitus: Status: Acute (4) Hypertension: Status: Acute Plan 62-year-old woman admitted with community-acquired pneumonia and UTI.? Still remains wheezy and short of breath at rest 1.Community-acquired pneumonia -Rocephin and azithromycin(4) - pulse dose methylprednisolone -wean O2 as tolerated -DuoNebs p.r.n. 2.UTI(Klebsiella) - Rocephin(3) -Ceftin upon DC 3.DMII -continue Lantus as ordered; expect to adjust up with steroids -lispro correctional scale -adjust as indicated 4.Hypertension -acceptable control on lisinopril 5 mg daily -adjust as indicated Lovenox Full code Will require ongoing hospitalization for IV antibiotics to treat community- acquired pneumonia and IV steroids to facilitate O2 wean Time Spent With Patient Time: Total time managing care of this patient today ____ minutes. Quality Stroke Does the patient have a stroke diagnosis?: No VTE Prior VTE?: No VTE Risk Level:: Medical - moderate - high VTE Device Contraindication: Treatment Not Indicated VTE Drug Contraindication: N/A - Med Ordered
[2022-08-31 16:09] LABS: Glucose, Whole Blood 386 mg/dL (60-115)
--- NOTE | 2022-08-31 17:08 | PC.NURSE ---
BS 386 Dr. Faye notified,awaiting new orders
[2022-08-31] MEDS: cefTRIAXone sodium 1 GM in 0.9 % Sodium Chloride 50 ML IV (17:32)
[2022-08-31] MEDS: Enoxaparin Sodium 40 MG/0.4 ML SYRINGE SUBCUT (17:32)
[2022-08-31] MEDS: Azithromycin 500 MG in 0.9 % Sodium Chloride 250 ML 125 MG IV (18:34)
[2022-08-31 19:58] LABS: Glucose, Whole Blood 462 mg/dL (60-115)
[2022-08-31 21:14] LABS: Glucose, Whole Blood 450 mg/dL (60-115)
--- NOTE | 2022-08-31 21:15 | PC.NURSE ---
BS 450,Dr. Shaw notified
[2022-08-31] MEDS: Insulin Glargine,Hum.rec.anlog 100 UNIT/ML 10 ML VIAL 80 UNIT SUBCUT (21:23)
[2022-09-01] VITALS (9 sets, daily range): BP systolic 124–147; BP diastolic 57–63; PULSE 62–93; RESP 16–18; TEMP 36.2–36.9; O2SAT 90–99
[2022-09-01] MEDS: methylPREDNISolone Sod Succ 125 MG/2 ML VIAL 60 MG IVPUSH ×4 (03:09→19:37)
[2022-09-01] MEDS: guaiFENesin DM 100/10/5 ML 5 ML SYRUP PO (03:17)
[2022-09-01 06:29] LABS: MANUAL DIFF FLAG NO
[2022-09-01 06:40] LABS: Basophils Percent Auto 0.2 % (0-2); Hemoglobin 11.3 g/dl (12.0-16.0); Imm Gran Abs Auto 0.04 X10*3/uL (0.00-0.03); Imm Gran Pct Auto 0.6 % (0.0-0.4); Lymphocytes Absolute Auto 1.1 X10*3/uL (1.2-4.9); Lymphocytes Percent Auto 17.2 % (20-40); Mean Corpuscular HGB Conc 34.2 g/dl (31.0-35.0); Mean Corpuscular Hemoglobin 32.3 pg (27.0-33.0); Mean Corpuscular Volume 94.3 fL (80.0-98.0); Mean Platelet Volume 10.1 fL (9.4-12.3); Monocytes Absolute Auto 0.2 X10*3/uL (0.1-1.2); Monocytes Percent Auto 3.2 % (2-11); Neutrophils Percent Auto 78.8 % (45-73); Platelet Count 171 X10*3/uL (160-400); Red Cell Distribution Width 12.2 % (11.0-16.0); White Blood Count 6.3 X10*3/uL (4.8-10.8)
[2022-09-01 07:05] LABS: Alanine Aminotransferase 68 U/L (0-31); Albumin Level 3.6 g/dL (3.5-5.0); Alkaline Phosphatase 87 U/L (39-117); Anion Gap 16 (12-20); Aspartate Amino Transferase 47 U/L (5-31); Bilirubin Total 0.4 mg/dL (0.0-1.0); Blood Urea Nitrogen 29 mg/dL (9-16); Carbon Dioxide 24 mmol/L (22-29); Chloride 106 mmol/L (96-108); Creatinine Clr Calc Pharmacy 93.2; Estimated Glomerular Filt Rate > 60; Glucose Fasting 278 mg/dL (60-99); Potassium 4.5 mmol/L (3.3-5.1); Sodium 141 mmol/L (135-145); Total Protein 6.4 g/dL (6.5-8.0)
[2022-09-01 07:38] LABS: Glucose, Whole Blood 242 mg/dL (60-115)
[2022-09-01] MEDS: Albuterol Sulfate (0.083%) 2.5 MG/3 ML VIAL.NEB INHALE ×4 (07:57→20:23)
[2022-09-01] MEDS: Insulin Lispro 100 UNIT/ML 3 ML VIAL SUBCUT ×4 (09:33→20:50)
[2022-09-01] MEDS: Insulin Glargine,Hum.rec.anlog 100 UNIT/ML 10 ML VIAL 20 UNIT SUBCUT (09:33)
[2022-09-01] MEDS: 0.9 % Sodium Chloride Flush 3 ML SYRINGE IVFLUSH ×2 (09:34→16:14)
[2022-09-01] MEDS: Atorvastatin Calcium 10 MG TABLET PO (09:35)
[2022-09-01] MEDS: lisinopriL 5 MG TABLET PO (09:35)
[2022-09-01] MEDS: guaiFENesin LA 600 MG TAB.ER.12H 1200 MG PO ×2 (09:35→19:36)
[2022-09-01 11:34] LABS: Glucose, Whole Blood 398 mg/dL (60-115)
[2022-09-01] MEDS: Insulin Lispro 100 UNIT/ML 3 ML VIAL 10 UNIT SUBCUT (12:16)
--- NOTE | 2022-09-01 14:02 | P.PNIM_ITS ---
Subjective Subjective Date of Service: 09/01/22 Interval History: continue use to improve with some short of breath with minimal exertion Review of Systems denies chest pain Admits to shortness of breath and is improving Denies nausea vomiting diarrhea Denies fever chills Physical Exam Vital Signs: Vital Signs: Last Vital Signs Temp 97.7 F 09/01/22 11:33 Pulse 89 09/01/22 11:38 Resp 18 09/01/22 11:38 BP 147/57 H 09/01/22 11:33 Pulse Ox 91 L 09/01/22 11:33 O2 Del Method 09/01/22 11:33 O2 Flow Rate 2.0 09/01/22 07:59 BMI result Body Mass Index 35.7 Const: Other: awake alert oriented x3 no respiratory distress able speak i Resp: Other: diminished at bases with scattered expiratory wheezes Cardio: Other: no S4; positive S1-S2; no S3 murmurs r Extrem: Other: no edema bilaterally Objective Data Active Medications Acetaminophen (Acetaminophen 325 Mg Tablet) 650 mg PO Q6H PRN PRN Reason: Pain, Mild (Pain Scale 1-3) Last Admin: 08/31/22 14:42 Dose: 650 mg Documented By: CHRISTOS Albuterol Sulfate (Albuterol Sulfate (0.083%) 2.5 Mg/3 Ml Vial.Neb) 2.5 mg INHALE RQ4H WHILE AWAKE [facility] Last Admin: 09/01/22 11:31 Dose: 2.5 mg Documented By: JOSE A Atorvastatin Calcium (Atorvastatin Calcium 10 Mg Tablet) 10 mg PO DAILY [facility] Last Admin: 09/01/22 09:35 Dose: 10 mg Documented By: ELEANOR Benzonatate (Benzonatate 100 Mg Capsule) 100 mg PO TID PRN PRN Reason: Cough Last Admin: 08/31/22 14:42 Dose: 100 mg Documented By: CHRISTOS Dextrose (Dextrose 50 % 25 Gm/50 Ml Syringe) 25 gm IVPUSH Q15M PRN; Protocol PRN Reason: per Hypoglycemia Standing Ord. Enoxaparin Sodium (Enoxaparin Sodium 40 Mg/0.4 Ml Syringe) 40 mg SUBCUT Q24H [facility] Last Admin: 08/31/22 17:32 Dose: 40 mg Documented By: MARIE Glucose (Glucose Gel 15 Gm Gel..Gram.) 15 gm PO Q15M PRN; Protocol PRN Reason: per Hypoglycemia Standing Ord. Guaifenesin (Guaifenesin La 600 Mg Tab.Er.12h) 1,200 mg PO BID [facility] Last Admin: 09/01/22 09:35 Dose: 1,200 mg Documented By: ELEANOR Guaifenesin/Dextromethorphan (Guaifenesin Dm 100/10/5 Ml 5 Ml Syrup) 5 ml PO Q4H PRN PRN Reason: cough Last Admin: 09/01/22 03:17 Dose: 5 ml Documented By: JACKELINE Ceftriaxone Sodium 1 gm/ (Sodium Chloride) 50 mls @ 100 mls/hr IV Q24H [facility] Last Infusion: 08/31/22 18:26 Dose: 0 mls/hr Documented By: MARIE Azithromycin 500 mg/ Sodium (Chloride) 250 mls @ 125 mls/hr IV Q24H [facility] Last Infusion: 08/31/22 20:47 Dose: 0 mls/hr Documented By: MARIE Ibuprofen (Ibuprofen 400 Mg Tablet) 400 mg PO Q6H PRN PRN Reason: headache Last Admin: 08/30/22 08:16 Dose: 400 mg Documented By: ZAYDA Insulin Glargine (Insulin Glargine,Hum.Rec.Anlog 100 Unit/Ml 10 Ml Vial) 80 unit SUBCUT BEDTIME [facility] Last Admin: 08/31/22 21:23 Dose: 80 unit Documented By: MARIE Insulin Glargine (Insulin Glargine,Hum.Rec.Anlog 100 Unit/Ml 10 Ml Vial) 20 unit SUBCUT DAILY [facility] Insulin Human Lispro (Insulin Lispro 100 Unit/Ml 3 Ml Vial) 0 unit SUBCUT QIDACHS [facility]; Protocol Last Admin: 09/01/22 12:16 Dose: 10 unit Documented By: ELEANOR Lisinopril (Lisinopril 5 Mg Tablet) 5 mg PO DAILY [facility]; Protocol Last Admin: 09/01/22 09:35 Dose: 5 mg Documented By: ELEANOR Methylprednisolone Sodium Succinate (Methylprednisolone Sod Succ 125 Mg/2 Ml Vial) 60 mg IVPUSH Q6H [facility] Last Admin: 09/01/22 09:34 Dose: 60 mg Documented By: ELEANOR Ondansetron HCl (Ondansetron Hcl 4 Mg/2 Ml Vial) 4 mg IVPUSH Q8H PRN PRN Reason: Nausea and Vomiting Pharmacy Consult (Consult Rx Perform Med Rec) 1 each MISCELLANE ONCE PRN PRN Reason: Consult order Polyethylene Glycol (Polyethylene Glycol 3350 17 Gm Powd.Pack) 17 gm PO DAILY PRN PRN Reason: Constipation Sodium Chloride (0.9 % Sodium Chloride Flush 3 Ml Syringe) [facility] Last Admin: 09/01/22 09:34 Dose: 3 ml Documented By: ELEANOR Labs 09/01/22 05:35 09/01/22 05:35 Labs: Laboratory Results - last 24 hr 08/31/22 08/31/22 08/31/22 16:04 19:54 21:11 MCV MCH MCHC RDW Plt Count MPV Immature Gran % (Auto) Neut % (Auto) Lymph % (Auto) [place] % (Auto) Eos % (Auto) Baso % (Auto) Lymph # (Auto) [place] # (Auto) Eos # (Auto) Baso # (Auto) Abs Immat Gran (auto) Absolute Neuts (auto) Absolute Nucleated RBC Nucleated RBC % (auto) Anion Gap Estim Creat Clear Calc Estimated GFR POC Glucose 386 H* 462 H* 450 H* Fasting Glucose Calcium Total Bilirubin AST ALT Alkaline Phosphatase Total Protein Albumin 09/01/22 09/01/22 09/01/22 05:35 05:35 07:34 MCV 94.3 MCH 32.3 MCHC 34.2 RDW 12.2 Plt Count 171 MPV 10.1 Immature Gran % (Auto) 0.6 H Neut % (Auto) 78.8 H Lymph % (Auto) 17.2 L [place] % (Auto) 3.2 Eos % (Auto) 0.0 Baso % (Auto) 0.2 Lymph # (Auto) 1.1 L [place] # (Auto) 0.2 Eos # (Auto) 0.0 Baso # (Auto) 0.0 Abs Immat Gran (auto) 0.04 H Absolute Neuts (auto) 5.0 Absolute Nucleated RBC 0.000 Nucleated RBC % (auto) 0.0 Anion Gap 16 Estim Creat Clear Calc 93.2 Estimated GFR > 60 POC Glucose 242 H Fasting Glucose 278 H Calcium 9.0 Total Bilirubin 0.4 AST 47 H ALT 68 H Alkaline Phosphatase 87 Total Protein 6.4 L Albumin 3.6 09/01/22 11:30 MCV MCH MCHC RDW Plt Count MPV Immature Gran % (Auto) Neut % (Auto) Lymph % (Auto) [place] % (Auto) Eos % (Auto) Baso % (Auto) Lymph # (Auto) [place] # (Auto) Eos # (Auto) Baso # (Auto) Abs Immat Gran (auto) Absolute Neuts (auto) Absolute Nucleated RBC Nucleated RBC % (auto) Anion Gap Estim Creat Clear Calc Estimated GFR POC Glucose 398 H* Fasting Glucose Calcium Total Bilirubin AST ALT Alkaline Phosphatase Total Protein Albumin Assessment and Plan (1) Community acquired pneumonia: Status: Acute (2) UTI (urinary tract infection): Status: Acute (3) Diabetes mellitus: Status: Acute (4) Hypertension: Status: Acute Plan 62-year-old woman admitted with community-acquired pneumonia and UTI.? Still remains wheezy and short of breath at rest 1.Community-acquired pneumonia -Rocephin and azithromycin(5) - pulse dose methylprednisolone -wean O2 as tolerated -DuoNebs p.r.n. 2.UTI(Klebsiella) - Rocephin(4) -Ceftin upon DC 3.DMII -continue Lantus as ordered; increase to Q12 dosing -lispro correctional scale -adjust as indicated 4.Hypertension -acceptable control on lisinopril 5 mg daily -adjust as indicated Lovenox Full code Will require ongoing hospitalization for IV antibiotics to treat community- acquired pneumonia and IV steroids to facilitate O2 wean Time Spent With Patient Time: Total time managing care of this patient today ____ minutes. Quality Stroke Does the patient have a stroke diagnosis?: No VTE Prior VTE?: No VTE Risk Level:: Medical - moderate - high VTE Device Contraindication: Treatment Not Indicated VTE Drug Contraindication: N/A - Med Ordered
[2022-09-01 16:41] LABS: Glucose, Whole Blood 346 mg/dL (60-115)
[2022-09-01] MEDS: cefTRIAXone sodium 1 GM in 0.9 % Sodium Chloride 50 ML IV (18:20)
[2022-09-01] MEDS: Enoxaparin Sodium 40 MG/0.4 ML SYRINGE SUBCUT (18:26)
[2022-09-01] MEDS: Azithromycin 500 MG in 0.9 % Sodium Chloride 250 ML 125 MG IV (19:36)
[2022-09-01] MEDS: Insulin Glargine,Hum.rec.anlog 100 UNIT/ML 10 ML VIAL 80 UNIT SUBCUT (19:37)
[2022-09-01 20:40] LABS: Glucose, Whole Blood 485 mg/dL (60-115)
[2022-09-02 03:25] VITALS: BP 152/66; PULSE 67; RESP 68; TEMP 36.5; O2SAT 94
[2022-09-02] MEDS: methylPREDNISolone Sod Succ 125 MG/2 ML VIAL 60 MG IVPUSH ×2 (04:03→08:07)
[2022-09-02] MEDS: Benzonatate 100 MG CAPSULE PO ×2 (04:31→12:55)
[2022-09-02] MEDS: guaiFENesin DM 100/10/5 ML 5 ML SYRUP PO ×2 (04:31→12:55)
[2022-09-02 06:49] LABS: MANUAL DIFF FLAG NO
[2022-09-02 06:52] LABS: Basophils Percent Auto 0.1 % (0-2); Hematocrit 32.2 % (37.0-47.0); Imm Gran Pct Auto 1.3 % (0.0-0.4); Lymphocytes Absolute Auto 1.1 X10*3/uL (1.2-4.9); Lymphocytes Percent Auto 14.6 % (20-40); Mean Corpuscular HGB Conc 34.2 g/dl (31.0-35.0); Mean Corpuscular Hemoglobin 32.8 pg (27.0-33.0); Mean Corpuscular Volume 96.1 fL (80.0-98.0); Mean Platelet Volume 10.3 fL (9.4-12.3); Monocytes Absolute Auto 0.4 X10*3/uL (0.1-1.2); Monocytes Percent Auto 4.8 % (2-11); Neutrophils Absolute Auto 5.9 x10*3/uL (2.0-8.3); Neutrophils Percent Auto 79.2 % (45-73); Platelet Count 165 X10*3/uL (160-400); Red Blood Count 3.35 X10*6/uL (4.20-5.50); Red Cell Distribution Width 12.2 % (11.0-16.0); White Blood Count 7.5 X10*3/uL (4.8-10.8)
[2022-09-02] MEDS: Albuterol Sulfate (0.083%) 2.5 MG/3 ML VIAL.NEB INHALE ×2 (07:48→11:34)
[2022-09-02 07:49] VITALS: BP 162/69; PULSE 72; PULSE 85; RESP 18; RESP 20; TEMP 36.3; O2SAT 95; O2SAT 99
[2022-09-02 08:06] LABS: Glucose, Whole Blood 294 mg/dL (60-115)
[2022-09-02] MEDS: lisinopriL 5 MG TABLET PO (08:06)
[2022-09-02] MEDS: guaiFENesin LA 600 MG TAB.ER.12H 1200 MG PO (08:06)
[2022-09-02] MEDS: Atorvastatin Calcium 10 MG TABLET PO (08:06)
[2022-09-02] MEDS: Insulin Lispro 100 UNIT/ML 3 ML VIAL SUBCUT ×2 (08:07→12:17)
[2022-09-02] MEDS: Insulin Glargine,Hum.rec.anlog 100 UNIT/ML 10 ML VIAL 20 UNIT SUBCUT (08:07)
[2022-09-02] MEDS: 0.9 % Sodium Chloride Flush 3 ML SYRINGE IVFLUSH (08:08)
[2022-09-02 08:09] LABS: Alanine Aminotransferase 87 U/L (0-31); Albumin Level 3.4 g/dL (3.5-5.0); Alkaline Phosphatase 81 U/L (39-117); Anion Gap 11 (12-20); Aspartate Amino Transferase 51 U/L (5-31); Bilirubin Total 0.4 mg/dL (0.0-1.0); Blood Urea Nitrogen 30 mg/dL (9-16); Carbon Dioxide 29 mmol/L (22-29); Chloride 104 mmol/L (96-108); Estimated Glomerular Filt Rate > 60; Glucose Fasting 349 mg/dL (60-99); Potassium 4.9 mmol/L (3.3-5.1); Sodium 139 mmol/L (135-145); Total Protein 6.1 g/dL (6.5-8.0)
--- NOTE | 2022-09-02 10:28 | P.DS_ITS ---
DS: Providers Provider Date of Service: 09/02/22 Date of admission: 08/30/22 15:28 Date of discharge: 09/02/22 Primary care physician: Becky Flannery MD DS: Diagnosis Discharge Diagnosis (1) Community acquired pneumonia: Status: Acute (2) UTI (urinary tract infection): Status: Acute (3) Diabetes mellitus: Status: Acute (4) Hypertension: Status: Acute DS: Summary Hospital Course Hospital Course: 62-year-old woman presenting from home with complaints of cough over the last 2 days reporting shortness of breath with exertion with no other associated symptoms. Denies chest pain, fever, chills, sick contacts, recent travel. chest x-ray showing airspace opacity to the right infrahilar region with possible aspiration versus developing infection.? Labs all within acceptable limits other than magnesium that was 1.4 and repleted in the ER.? Mildly elevated AST and ALT.? Positive urinalysis with history of Klebsiella in the past.? Flu, COVID and RSV negative.? Elevated blood pressure reading, patient reports she had not taken her morning medications today.? She was given a dose of ceftriaxone, albuterol, Zofran, azithromycin and 1 L of IV fluid in the ER.? Hospital Course Admitted to general medical floor and maintain on ceftriaxone and azithromycin. Pulse dose steroids added; over the next several days patient continued to improve albeit slowly. Subsequent blood cultures negative x2. Urine culture was obtained which ultimately grew Klebsiella sensitive to ceftriaxone. At this point time she is stable to be discharged on oral medication prednisone taper and follow-up with her PCP. She will be given a work note from the day of admission till 09/11/22. Time Spent with Patient Time attestation: Total time managing care of this patient today ____ minutes. Discharge coordination time: Greater than 30 minutes Quality: Safe Use of Opioids Does Pt have an Active Cancer Diagnosis on the Problem List?: No Quality: Stroke Does the patient have a stroke diagnosis?: No Physical Exam Vital Signs: Vital Signs: Last Vital Signs Temp 97.4 F 09/02/22 07:49 Pulse 72 09/02/22 07:49 Resp 20 09/02/22 07:49 BP 162/69 H 09/02/22 07:49 Pulse Ox 99 09/02/22 07:49 O2 Del Method 09/02/22 07:49 O2 Flow Rate 2.0 09/01/22 07:59 BMI result Body Mass Index 35.7 Const: Other: awake alert oriented x3 no respiratory distress able speak i Resp: Other: diminished at bases with scattered expiratory wheezes Cardio: Other: no S4; positive S1-S2; no S3 murmurs r Extrem: Other: no edema bilaterally DS: Data Data Completed and Pending Labs on day of discharge: Laboratory Results - last 24 hr 09/01/22 09/01/22 09/01/22 11:30 16:36 20:32 WBC RBC Hgb Hct MCV MCH MCHC RDW Plt Count MPV Immature Gran % (Auto) Neut % (Auto) Lymph % (Auto) [place] % (Auto) Eos % (Auto) Baso % (Auto) Lymph # (Auto) [place] # (Auto) Eos # (Auto) Baso # (Auto) Abs Immat Gran (auto) Absolute Neuts (auto) Absolute Nucleated RBC Nucleated RBC % (auto) Sodium Potassium Chloride Carbon Dioxide Anion Gap BUN Creatinine Estim Creat Clear Calc Estimated GFR POC Glucose 398 H* 346 H 485 H* Fasting Glucose Calcium Total Bilirubin AST ALT Alkaline Phosphatase Total Protein Albumin 09/02/22 09/02/22 09/02/22 06:12 06:12 07:55 WBC 7.5 RBC 3.35 L Hgb 11.0 L Hct 32.2 L MCV 96.1 MCH 32.8 MCHC 34.2 RDW 12.2 Plt Count 165 MPV 10.3 Immature Gran % (Auto) 1.3 H Neut % (Auto) 79.2 H Lymph % (Auto) 14.[address] [place] % (Auto) 4.8 Eos % (Auto) 0.0 Baso % (Auto) 0.1 Lymph # (Auto) 1.[address] [place] # (Auto) 0.4 Eos # (Auto) 0.0 Baso # (Auto) 0.0 Abs Immat Gran (auto) 0.10 H Absolute Neuts (auto) 5.9 Absolute Nucleated RBC 0.000 Nucleated RBC % (auto) 0.0 Sodium 139 Potassium 4.9 Chloride 104 Carbon Dioxide 29 Anion Gap 11 L BUN 30 H Creatinine 0.86 Estim Creat Clear Calc 90.0 Estimated GFR > 60 POC Glucose 294 H Fasting Glucose 349 H Calcium 9.0 Total Bilirubin 0.4 AST 51 H ALT 87 H Alkaline Phosphatase 81 Total Protein 6.1 L Albumin 3.4 L Discharge Plan Discharge Anticipated Discharge Date/Time: 09/02/22 10:18 Patient Disposition: Home, Self-Care Discharge Diagnosis: Community-acquired pneumonia Referrals: Becky Flannery MD [Primary Care Provider] - 1 Week Discharge Medications: New ibuprofen 400 mg Tablet 400 mg PO Q6H PRN (Reason: headache ) Qty: 30 0RF cefuroxime axetil 500 mg tablet 500 mg PO BID 10 Days Qty: 20 0RF doxycycline hyclate 100 mg tablet 100 mg PO BID 10 Days Qty: 20 0RF prednisone 20 mg tablet See Rx Instructions .Route .COMPLEX Qty: 18 0RF Rx Instructions: 20 mg orally; 3 tabs daily for 3 days, 2 tabs daily for 3 days, 1 tab daily for 3 days Continued atorvastatin 10 mg tablet 10 mg PO DAILY naproxen 500 mg tablet 1 tab PO Q12H PRN (Reason: Pain) Rx Instructions: take with a meal Trulicity 3 mg/0.5 mL pen injector 3 mg subcut FR lisinopril 5 mg tablet 5 mg PO DAILY (DME) lancets [FreeStyle Lancets] 28 gauge misc See Rx Instructions topical QID Qty: 100 Rx Instructions: As directed Basaglar KwikPen U-100 Insulin 100 unit/mL (3 mL) insulin pen 80 unit subcut BEDTIME metformin 500 mg tablet extended release 24 hr 1,000 mg PO BID insulin lispro [Humalog KwikPen Insulin] 100 unit/mL insulin pen See Protocol subcut TID Protocol: Insulin Correction Scale Less than or equal to 110 ---- Give (units): 0 111 to 150 Give (units): 0 151 to 200 Give (units): 2 201 to 250 Give (units): 4 251 to 300 Give (units): 6 301 to 350 Give (units): 8 Greater than 350 Give (units): 10 Call MD if Blood Glucose > : 350 Discontinued polyethylene glycol 3350 [Miralax] 17 gram/dose powder 17 g PO DAILY PRN (Reason: Constipation) Discharge Orders: Discharge Order (Routine); Ordered 09/02/22 Ordered By: Santiago Faye Diet: Advance to usual diet Activity on Discharge: As tolerated Stand Alone Forms: Patient Portal Discharge page Care Plan Goals: slowly return to normal activities as breathing tolerates; Sugars will be elevated secondary to steroids but will return to baseline after taper complete Health Concerns: follow-up with your PCP next week for return to work assessment. Plan of Treatment: complete doxycycline 100 mg twice daily for 10 days along with Ceftin 500 mg twice daily for 10 dayscomplete doxycycline 100 mg twice daily for 10 days along with Ceftin 500 mg twice daily for 10 days. prednisone taper as ordered Assessment: see discharge summary
--- NOTE | 2022-09-02 10:41 | MHC.CM.PN ---
PT WILL DC HOME TODAY WITH NO SERVICES FAMILY TO TRANSPORT
[2022-09-02 11:21] VITALS: BP 168/73; PULSE 68; RESP 20; TEMP 36.6; O2SAT 94
[2022-09-02 11:31] LABS: Glucose, Whole Blood 319 mg/dL (60-115)
[2022-09-02 11:34] VITALS: PULSE 82; RESP 18; O2SAT 95
== END 2022-09-02 12:58 | disposition home or self-care (01) | DRG 194 ==
LOC: HO.ED 18:00 → HO.EDOVER 18:21 → HO.S3 21:53
PROVIDERS: Physician Assistant; Admitting Provider Nurse Practitioner Acute Care; Emergency Provider Emergency Medicine; PCP Internal Medicine; Visit Provider Hospitalist
DX: J18.9 Pneumonia, unspecified organism (principal); N39.0 Urinary tract infection, site not specified; I10 Essential (primary) hypertension; E11.9 Type 2 diabetes mellitus without complications; D64.9 Anemia, unspecified; E66.9 Obesity, unspecified; E83.42 Hypomagnesemia; Z68.35 Body mass index [BMI] 35.0-35.9, adult; B96.1 Klebsiella pneumoniae [K. pneumoniae] as the cause of diseases classified elsewhere; E78.5 Hyperlipidemia, unspecified; Z20.822 Contact with and (suspected) exposure to COVID-19; Z87.891 Personal history of nicotine dependence; Z79.4 Long term (current) use of insulin; Z79.84 Long term (current) use of oral hypoglycemic drugs; Z79.899 Other long term (current) drug therapy
CPT/HCPCS: 0241U; 36415; 71045; 80048; 80053; 81001; 82947; 83605; 83735; 83880; 85025; 85610; 85730; 87040; 87086; 87088; 87186; 92526; 92610; 93005; 94640; 99285; J0456; J0696; J1650; J2405; J2930; J3475

== ENCOUNTER 2022-10-17 14:16 | Outpatient (REF) | payer OTHER, SELFPAY ==
[2022-10-17 17:44] LABS: Alanine Aminotransferase 30 U/L (0-31); Albumin Level 3.7 g/dL (3.5-5.0); Alkaline Phosphatase 84 U/L (39-117); Aspartate Amino Transferase 29 U/L (5-31); Bilirubin Direct 0.2 mg/dL (0.0-0.5); Bilirubin Total 0.4 mg/dL (0.0-1.0); C Reactive Protein 0.49 mg/dL (< or = 0.50); Gamma Glutamyl Transpeptidase 108 U/L (7-33)
[2022-10-17 18:00] LABS: Ferritin 160 ng/mL (10-250)
[2022-10-19 16:24] LABS: Ceruloplasmin 25 mg/dL (18-53)
[2022-10-21 23:23] LABS: Smooth Muscle Antibody <20 U (<20)
[2022-10-24 10:58] LABS: Mitochondrial Antibodies NEGATIVE (NEGATIVE)
== END 2022-10-17 14:17 | disposition home or self-care (01) ==
LOC: HO.LAB 14:16
PROVIDERS: PCP Internal Medicine; Visit Provider Nurse Practitioner Family
DX: K58.9 Irritable bowel syndrome, unspecified (principal); R79.89 Other specified abnormal findings of blood chemistry; R10.9 Unspecified abdominal pain; R74.8 Abnormal levels of other serum enzymes; R14.0 Abdominal distension (gaseous); R74.01 Elevation of levels of liver transaminase levels; K76.0 Fatty (change of) liver, not elsewhere classified; Z79.899 Other long term (current) drug therapy
CPT/HCPCS: 36415; 80076; 82105; 82390; 82728; 82977; 86015; 86140; 86255; 86256

== ENCOUNTER 2022-11-23 12:49 | Outpatient (REF) | payer OTHER, SELFPAY ==
--- NOTE | ~2022-11-23 | US_ITS ---
EXAMINATION: US COMPLETE ABDOMEN WITH LIVER ELASTOGRAPHY CLINICAL INFORMATION: Abnormal liver function tests. COMPARISON: CT abdomen and pelvis dated 12/08/2021. TECHNIQUE: Real-time imaging of the abdominal viscera. Noninvasive ultrasound liver fibrosis assessment is performed using Ben ElastPQ point quantification shear wave elastography (2D-SWE) with a C5-2 MHz transducer. Multiple elastography samples are obtained. FINDINGS: PANCREAS: Limited. The visualized pancreatic head and body are normal in appearance. The remainder of the pancreas is obscured from visualization by the overlying bowel gas. ABDOMINAL AORTA: The proximal, middle, and distal aortic segments are normal in caliber. INFERIOR VENA CAVA: Visualized portions are normal. LIVER: The liver demonstrates normal size, contour and generally increased echogenicity. No focal lesion or intrahepatic biliary duct dilatation. The right lobe measures 21.3 cm in length. The left lobe measures 14.8 cm in length. Portal flow is towards the liver (hepatopetal). Shear wave liver elastography median stiffness is 1.81 m/s (reference: normal median stiffness is 1.3 m/s or less). IQR/median stiffness to assess sampling precision is 0.10 (reference: good quality data set is IQR/median stiffness of 0.15 or less). GALLBLADDER: Mild layering sludge is noted. The gallbladder is physiologically distended without evidence of stones, polyps, wall thickening or pericholecystic fluid. COMMON BILE DUCT: Normal in caliber measuring 0.7 cm in diameter. RIGHT KIDNEY: Normal. No hydronephrosis. No renal calculi or focal parenchymal lesions. The kidney measures 14.3 cm in maximum dimension. LEFT KIDNEY: Normal. No hydronephrosis. No renal calculi or focal parenchymal lesions. The kidney measures 12.7 cm in maximum dimension. SPLEEN: No focal finding. The spleen measures 14.6 cm in maximum dimension. FREE FLUID: None. US/US abdomen comp w elastography IMPRESSION: 1. There is hepatosplenomegaly. 2. There is generalized increase in hepatic echotexture, consistent with fatty infiltration or hepatocellular disease. Please correlate clinically. No focal hepatic mass or intrahepatic biliary dilatation is seen. 3. Liver elastography: Measurements are suggestive of compensated advanced chronic liver disease but need further test for confirmation. 4. Technically limited ultrasound examination of the pancreatic tail. REFERENCE: Society of Radiologists in Ultrasound Liver Stiffness Thresholds (2020): LIVER STIFFNESS THRESHOLDS: *Liver Stiffness equal or less than 1.3 m/s: High probability of being normal. *Liver Stiffness less than 1.7 m/s: In the absence of other known clinical signs, rules out compensated advanced chronic liver disease. *Liver Stiffness 1.7-2.1 m/s: Suggestive of compensated advanced chronic liver disease but need further test for confirmation. *Liver Stiffness over 2.1 m/s: Rules in compensated advanced chronic liver disease. *Liver Stiffness over 2.4 m/s: Suggestive of clinically significant portal hypertension. QUALITY OF DATA SET: *IQR/Median value equal or less than 0.15 implies a quality data set. *IQR/Median value over 0.15 implies a poor quality data set. SIGNIFICANT CHANGE FROM PRIOR EXAM: Significant change if liver stiffness measurement is 10% or greater from prior exam. OTHER CONSIDERATIONS: The stage of liver fibrosis may be overestimated in the setting of acute hepatitis, liver inflammation, elevated liver function tests, hepatic vascular congestion, obstructive cholestasis, non-fasting state, and infiltrative diseases such as amyloidosis and lymphoma. In some patients with NAFLD, the liver stiffness thresholds for compensated advanced chronic liver disease may be lower. In causes other than viral hepatitis and NAFLD, liver stiffness thresholds are not well established.
== END 2022-11-23 12:50 | disposition home or self-care (01) ==
LOC: HO.US 12:49
PROVIDERS: PCP Internal Medicine; Visit Provider Nurse Practitioner Family
DX: R79.89 Other specified abnormal findings of blood chemistry (principal)
CPT/HCPCS: 76705; 76981

== ENCOUNTER 2023-02-08 10:29 | Outpatient (AMB) | payer OTHER, SELFPAY ==
--- NOTE | 2023-02-08 10:32 | MHC.OFFVIS ---
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 Complaints include pain over varicosities, swelling of lower extremities, cramping, fatigue, and heaviness of the lower extremities. 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 It is noted more so in right leg. Patient denies any previous venous surgery or injections. Patient denies any history of DVT/ PE. Patient denies any history of phlebitis. Trial of compression includes - [id number] They now present for vascular evaluation regarding their varicose veins. [facility] Medical History Diabetes mellitus Hyperlipidemia Hypertension IBS (irritable bowel syndrome) Family History Mother Diabetes Father Stroke FHx: cancer of prostate Brother Leukemia Brother Bone cancer Maternal Grandmother Diabetes Social History Alcohol intake: never Patient Tobacco Use Status: Former Tobacco user Cigarette Packs Per Day: 0.25 Years Smoked: 20.00 service: No Current occupational status: employed Review of Systems Const Reports as per HPI ENT Reports no additional complaints Card Denies chest pain, Denies chest pain at rest and Denies chest pain with activity Resp Denies chest congestion and Denies cough GI Reports no additional complaints Musc Details: pain over varicosities, aching of lower extremities, swelling, cramping, heaviness and tiredness, itching Denies abnormal gait Skin/Breast Reports pruritus and Denies wounds Neuro Reports no additional complaints and Denies abnormal gait Psych Denies no additional complaints Physical Exam Vital Signs: BMI result Body Mass Index 35.7 Const General: cooperative, healthy appearing and comfortable Orientation/consciousness: oriented to person, oriented to place and oriented to time Neck Carotids: no bruits Chest Chest palpation & inspection: normal inspection of the chest and normal palpation of entire chest wall Resp Effort & Inspection: normal respiratory effort and able to speak in complete sentences Cardio Rate: regular rate Heart sounds: S1 normal heart sound present and S2 normal heart sound present Peripheral pulses: Peripheral pulses 2+ throughout GI Inspection: Yes normal to inspection Skin Other: +2 edema, large rope-like varicosities greater than 4 mm CEAP Classification C4 - skin color changes Ep - Etiology Primary As - superficial veins P - reflux General skin exam: dry skin Neuro General: oriented to person, oriented to place and oriented to time Extrem Right lower extremity: full ROM, normal capillary refill and edema Left lower extremity: full ROM, normal capillary refill and edema Psych Mental Status: mental status grossly normal Assessment & Plan Assessment & Plan (1) Varicose veins of right lower extremity with inflammation: Code(s): I83.11 - Varicose veins of right lower extremity with inflammation Plan: In short, the patient has evidence of venous insufficiency. I have discussed the pathophysiology with the patient. In addition I have provided informational material regarding venous disease to the patient. We have discussed conservative measures including compression, elevation, and exercise. I have also provided a handout regarding appropriate use of compression stockings and where to purchase good compression stockings as well. I have taken the liberty of ordering venous insufficiency testing with the patient. They will follow up with me after testing. The patient had an opportunity to ask questions regarding the treatment plan. All questions were answered. Imaging studies, laboratory studies and physical exam results were discussed and reviewed in detail. No major barriers to understanding were identified. The patient expressed understanding and agreement with the above treatment plan. The patient is aware they should contact our office by phone for worsening of the current condition or the appearance of new symptoms. Thank you for allowing me to participate in the vascular care of this patient. If you have any questions or concerns regarding the treatment for the above condition please do not hesitate to contact me. The office telephone contact is [phone]. This note is constructed using voice recognition software. While every effort has been made to ensure accuracy, senior program planner errors may have been included. Thank you for allowing me to participate in the care of your patient. Yours sincerely, Bari William MD, FACS, R.P.V.I. (2) Leg pain: Code(s): M79.606 - Pain in leg, unspecified Plan: Unclear etiology of lower extremity discomfort. 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 There is a neuropathy component of this as well. She describes numbness and lack of sensation on the plantar aspects of her feet as well. Should this persist may benefit from a neurologic evaluation. She does have follow-up with Podiatry for proper shoe inserts with Dr. Padilla. She will follow up with us after venous insufficiency testing. Thank you for allowing us to assist in her care Orders: Orders US venous duplex LE BI 1 Week I83.11 - Varicose veins of right lower extremity with inflammation Coding Level of Care Code New Pt Level 4 (58623) Diagnoses Varicose veins of right lower extremity with inflammation I83.11 Leg pain M79.606
[2023-02-08 10:33] VITALS: BMI 35.7
== END 2023-02-08 11:12 | disposition home or self-care (01) ==
PROVIDERS: PCP Internal Medicine; Visit Provider Surgery Vascular Surgery
DX: I83.11 Varicose veins of right lower extremity with inflammation (principal); M79.604 Pain in right leg; M79.605 Pain in left leg
CPT/HCPCS: 99204

== ENCOUNTER → 2023-02-08 10:29 | Outpatient (BNVA) | payer OTHER, SELFPAY | PROVIDERS: PCP Internal Medicine; Visit Provider Surgery Vascular Surgery ==

== ENCOUNTER 2023-02-21 10:27 | Outpatient (REF) | payer OTHER, SELFPAY ==
--- NOTE | ~2023-02-21 | US_ITS ---
EXAMINATION: US VENOUS REFLUX/INSUFFICIENCY CLINICAL INFORMATION: Varicose veins of right lower extremity with inflammation COMPARISON: None. TECHNIQUE: Bilateral lower extremity venous insufficiency ultrasound was performed with velocity measurements. Color flow Doppler imaging was performed. FINDINGS: RIGHT SIDE: No evidence of DVT or venous reflux within the common femoral, mid femoral, or popliteal vein. GREATER SAPHENOUS VEIN: The right saphenofemoral junction measures 0.9cm. The reflux time is 676 ms. Proximal thigh measures 1cm. Reflux time is 1112 ms. The mid thigh and [id number] segments of the great saphenous vein are not well visualized. Instead, there are several varicosities at the level of the mid thigh and above the knee. There is thrombophlebitis of several of these vessels. These are further described below. At the knee measures 0.5cm. Reflux time is 704 ms. Below the knee measures 0.4cm. Reflux time is 1152 ms. Mid calf measures 0.1cm. Reflux time is 836 ms. At the level of the ankle it measures 0.3cm. Reflux time is 0 ms. There is a medial accessory saphenous which measures 0.5 cm at the saphenofemoral junction and does not demonstrate reflux. SMALL SAPHENOUS VEIN: The saphenopopliteal junction measures 0.4 cm. Reflux time is 0 ms. The upper right small saphenous vein measures 0.4 cm. Reflux time is 0 ms.. The lower small saphenous vein is not seen. Several demurrage agent veins are visualized which do not demonstrate reflux. These include: Mid small saphenous vein 0.3 cm Proximal calf 0.3 cm Mid calf 0.4 cm Mid calf 0.3 cm. Multiple varicosities are visualized. Varicosities associated with the small saphenous vein include: Mid calf measuring 0.9 cm, reflux time is 1792 ms At the knee measuring 0.8 cm, reflux time is 2180 ms At the distal thigh measuring 0.8 cm, reflux time is 2548 ms Varicosities associated the great saphenous vein include Proximal thigh measuring 0.3 cm, reflux time 1652 ms Mid thigh measuring 0.7 cm, reflux time 1260 ms At the knee measuring 0.8 cm, reflux time 2452 ms At the knee measuring 0.3 cm, reflux time 1108 ms Mid calf measuring 0.4 cm reflux time 1232 ms LEFT SIDE: No evidence of DVT or venous reflux within the common femoral, mid femoral, or popliteal vein. GREATER SAPHENOUS VEIN: The left saphenofemoral junction measures 0.9cm. The reflux time is 0 ms. Proximal thigh measures 0.7cm. Reflux time is 844 ms. Mid thigh measures 0.5cm. Reflux time is 896 ms. Above-knee measures 0.5cm. Reflux time is 0 ms. At the knee measures 0.5cm. Reflux time is 2024 ms. Below the knee measures 0.4cm. Reflux time is 0 ms. Mid calf measures 0.5cm. Reflux time is 0 ms. At the level of the ankle it measures0.2cm. Reflux time is 0 ms. There is a medial accessory saphenous vein which measures 0.6 cm at the saphenofemoral junction. Reflux time is 1120 ms. At the mid thigh it measures 0.3 cm and does not demonstrate reflux. SMALL SAPHENOUS VEIN: The saphenopopliteal junction measures 0.2 cm. Reflux time is 0 ms. The upper left small saphenous vein measures 0.2 cm. Reflux time is 0 ms. The lower small saphenous vein measures 0.3cm. Reflux time is 0 ms. Several demurrage agent veins are visualized which do not demonstrate reflux. This includes a 0.2 cm demurrage agent at the proximal calf, a 0.4 cm demurrage agent at the mid calf and a 0.2 cm demurrage agent at the mid calf. There are several left lower extremity varicosities these include: Proximal thigh 0.4 cm, no reflux. Distal thigh measuring 0.3 cm, reflux time is 1216 ms. At the knee measuring 0.6 cm, no reflux. US/US venous duplex LE BI IMPRESSION: No evidence of deep venous reflux. On the right there is reflux within the great saphenous vein saphenofemoral junction extending to the proximal thigh. From the mid thigh to the [id number] segment the great saphenous vein is not visualized, rather there are several varicosities which have thrombophlebitis and reflux. More distally there is reflux within the at the knee segment extending to the midcalf segments of the great saphenous vein. There are multiple right lower extremity varicosities demonstrate reflux, as described. On the left there is reflux within the great saphenous vein involving the proximal and mid thigh segment as well as the segment at the level of the knee. There is also a medial accessory great saphenous vein which demonstrates reflux at the saphenofemoral junction. There are several left lower extremity varicosities, as described.
== END 2023-02-21 10:28 | disposition home or self-care (01) ==
LOC: HO.US 10:27
PROVIDERS: Visit Provider Surgery Vascular Surgery
DX: I83.11 Varicose veins of right lower extremity with inflammation (principal)
CPT/HCPCS: 93970

== ENCOUNTER 2023-03-29 13:53 | Outpatient (AMB) | payer OTHER, SELFPAY ==
--- NOTE | 2023-03-29 14:05 | MHC.OFFVIS ---
Intake Vital Signs 03/29/23 14:06 Height 5 ft 10 in Weight 249 lb BMI 35.7 Intake Visit Reasons: follow up [facility] 02/21/23 Intake Note: follow up for [facility] 02/21/2023 Right LE worse than the Left LE, cramping, burning and itching. Has new complaint about her left ankle and issue with her foot Accompanied by: Self / Same As Patient Allergies No Known Allergies Allergy (Verified 03/29/23 14:11) HPI follow up [facility] 02/21/23 HPI Details Very pleasant 62-year-old female presents for follow-up regarding venous insufficiency. She notes significant swelling and discomfort. She has this large varicosity coursing through the right medial thigh and calf which has been a source of discomfort for her. She has had routine conservative measures including use of compression stockings which have provided her minimal relief. She now presents to us for follow-up with venous insufficiency testing. [facility] Medical History IBS (irritable bowel syndrome) Hypertension Hyperlipidemia Diabetes mellitus Family History Mother Diabetes Father Stroke FHx: cancer of prostate Brother Leukemia Brother Bone cancer Maternal Grandmother Diabetes Social History Alcohol intake: never Patient Tobacco Use Status: Former Tobacco user Cigarette Packs Per Day: 0.25 Years Smoked: 20.00 service: No Current occupational status: employed Review of Systems Const Reports as per HPI ENT Reports no additional complaints Card Denies chest pain, Denies chest pain at rest and Denies chest pain with activity Resp Denies chest congestion and Denies cough GI Reports no additional complaints Musc Details: pain over varicosities, aching of lower extremities, swelling, cramping, heaviness and tiredness, itching Denies abnormal gait Skin/Breast Reports pruritus and Denies wounds Neuro Reports no additional complaints and Denies abnormal gait Psych Denies no additional complaints Physical Exam Vital Signs: BMI result Body Mass Index 35.7 Const General: cooperative, healthy appearing and comfortable Orientation/consciousness: oriented to person, oriented to place and oriented to time Neck Carotids: no bruits Chest Chest palpation & inspection: normal inspection of the chest and normal palpation of entire chest wall Resp Effort & Inspection: normal respiratory effort and able to speak in complete sentences Cardio Rate: regular rate Heart sounds: S1 normal heart sound present and S2 normal heart sound present Peripheral pulses: Peripheral pulses 2+ throughout GI Inspection: Yes normal to inspection Skin Other: +2 edema, large rope-like varicosities greater than 4 mm right medial thigh and calf CEAP Classification C4 - skin color changes Ep - Etiology Primary As - superficial veins P - reflux General skin exam: dry skin Neuro General: oriented to person, oriented to place and oriented to time Extrem Right lower extremity: full ROM, normal capillary refill and edema Left lower extremity: full ROM, normal capillary refill and edema Psych Mental Status: mental status grossly normal Results Reviewed Results Reviewed: Brief summary of venous insufficiency testing is as follows: right great saphenous vein: Positive right small saphenous vein: negative right accessory vein: none present left great saphenous vein: Positive left small saphenous vein: negative left accessory vein: none present Please note there is no evidence of any venous aneurysms or significant tortuosity Assessment & Plan Assessment & Plan (1) Varicose veins of right lower extremity with inflammation: Code(s): I83.11 - Varicose veins of right lower extremity with inflammation Plan: This patient has varicose veins with inflammation. They continue to be a source of discomfort for the patient. The patient has tried conservative treatment with compression, leg elevation and exercise program for over 3 months time. They have been compliant with all treatment. This has provided minimal relief for the patient. I do not anticipate this course of treatment will alter the underlying etiology. The patient has been scheduled for lower extremity venous treatment inclusive of --- right great saphenous vein Cyanoacralate ablation. Risks, benefits, and complications of this procedure has been discussed in detail with the patient including but not limited to bleeding, infection, and the development of a DVT. The patient has demonstrated a clear understanding and has consented. We will schedule the patient as soon as possible. Thank you for allowing us to participate in this patient's care. If there are any questions or concerns please do not hesitate to contact us. Coding Level of Care Code Est Pt Level 4 (71732) Diagnoses Varicose veins of right lower extremity with inflammation I83.11
[2023-03-29 14:06] VITALS: BMI 35.7
== END 2023-03-29 14:38 | disposition home or self-care (01) ==
PROVIDERS: PCP Internal Medicine; Visit Provider Surgery Vascular Surgery
DX: I83.11 Varicose veins of right lower extremity with inflammation (principal)
CPT/HCPCS: 99214

== ENCOUNTER → 2023-03-29 13:53 | Outpatient (BNVA) | payer OTHER, SELFPAY | PROVIDERS: PCP Internal Medicine; Visit Provider Surgery Vascular Surgery ==

== ENCOUNTER 2023-04-13 08:24 | Outpatient (AMB) | payer OTHER, SELFPAY ==
[2023-04-13 09:29] VITALS: BMI 35.7
--- NOTE | 2023-04-13 09:29 | MHC.OFFVIS ---
Intake Vital Signs 04/13/23 09:29 Height 5 ft 10 in Weight 249 lb BMI 35.7 Intake Visit Reasons: Right Leg Venaseal Allergies No Known Allergies Allergy (Verified 04/13/23 09:29) PFSH Medical History IBS (irritable bowel syndrome) Hypertension Hyperlipidemia Diabetes mellitus Family History Mother Diabetes Father Stroke FHx: cancer of prostate Brother Leukemia Brother Bone cancer Maternal Grandmother Diabetes Social History Alcohol intake: never Patient Tobacco Use Status: Former Tobacco user Cigarette Packs Per Day: 0.25 Years Smoked: 20.00 service: No Current occupational status: employed Physical Exam Vital Signs: BMI result Body Mass Index 35.7 Office Procedures Vascular Office Procedure Details Details: Diagnosis: Right Leg varicose veins with inflammation Procedure: Endovenous Ablation of the right Great Saphenous Vein with VenaSeal Closure System Anesthesia: Local infiltration 5 cc, Estimated Blood Loss: min Specimen: none Duplex ultrasound was used to map out the insufficient saphenous vein, and access was determined and marked on the overlying skin. The depth and diameter of the vein(s) to be treated was documented. The patient was placed supine on the procedure table and the leg was prepped and draped using sterile technique. Ultasound guidance was again used to localize the access site. 1% lidocaine was injected as a local anesthetic in the subcutaneous tissues at the target location in the GSV in the lower leg. Using ultrasound guidance, access was gained at this location with the 19 gauge thin walled access needle and followed by introduction of a short guidewire, location confirmed with ultrasound. A small, 3 mm incision was made at the access site to allow for introduction and placement of the 7 Fr x7cm introducer/dilator. The dilator and guidewire were removed. The 0.035 guidewire from the VenaSeal kit was then introduced and positioned at the saphenofemoral junction using ultrasound guidance. The 80 cm 7 Fr introducer sheath/dilator was positioned 5cm from the saphenofemoral junction. The guidewire and dilator were removed, and the remaining sheath was flushed with sterile saline, with the syringe remaining in place prior to the next steps. The cyanoacrylate adhesive was precisely primed into the 5 F delivery catheter and this catheter/syringe combination was attached within the dispenser gun. This assembly was introduced through the 7F sheath and positioned 5 cm caudal of the saphenofemoral junction under ultrasound guidance. We were not able to access all the way up to the saphenofemoral junction and we then approached the mid to distal GSV and 1 aliquot every 3 cm distally with 30 sec of compression along the course of the vessel. Following the last injection and compression sequence, the catheter and introducer sheath were pulled out from the access site. Hemostasis was achieved with manual compression and an adhesive bandage was applied to the incision. Ultrasound confirmed complete coaptation and closure of the treated segments of the GSV, and the absence of any DVT at the saphenofemoral junction. Treatment time was approximately 4 minutes and the vein length treated was 12 cm. The drapes were removed and the patient cleaned and prepared for discharge. Post op ultrasound check is scheduled for 48-72 hours and the patient was given written post-op instructions. 51775 - Endoven Ther Chem Adhes 1st All charges added?: Procedure code (CPT) selection complete Coding Level of Care Code Procedure Only CPT Codes Details - Vascular 3: 30255 - Endoven Ther Chem Adhes 1st ([id number])
== END 2023-04-13 11:26 | disposition home or self-care (01) ==
PROVIDERS: PCP Internal Medicine; Visit Provider Surgery Vascular Surgery
DX: I83.11 Varicose veins of right lower extremity with inflammation (principal)
CPT/HCPCS: 36482

== ENCOUNTER → 2023-04-13 08:24 | Outpatient (BNVA) | payer OTHER, SELFPAY | PROVIDERS: PCP Internal Medicine; Visit Provider Surgery Vascular Surgery | DX: I83.11 Varicose veins of right lower extremity with inflammation (principal) | CPT/HCPCS: 36482 ==

== ENCOUNTER 2023-04-17 09:07 | Outpatient (REF) | payer OTHER, SELFPAY | END 2023-04-17 09:08 | disposition home or self-care (01) | LOC: HO.US 09:07 | PROVIDERS: PCP Internal Medicine; Visit Provider Surgery Vascular Surgery | DX: M79.604 Pain in right leg (principal) | CPT/HCPCS: 93971 ==

== ENCOUNTER 2023-04-26 09:14 | Outpatient (AMB) | payer OTHER, SELFPAY ==
[2023-04-26 09:25] VITALS: BMI 35.7
--- NOTE | 2023-04-26 09:25 | MHC.OFFVIS ---
Intake Vital Signs 04/26/23 09:25 Height 5 ft 10 in Weight 249 lb BMI 35.7 Intake Visit Reasons: 2 week follow up right leg venaseal Intake Note: 2 week follow up Right GSV Venaseal 04/13/2023. Pt states she has some bruising post procedure and worse after US, but she states overall doing better. Does have some Large VV on Right calf. Also states her Left LE sometimes bothers her but not as much as right leg did. 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 Accompanied by: Self / Same As Patient Allergies No Known Allergies Allergy (Verified 04/26/23 09:30) HPI 2 week follow up right leg venaseal HPI Details Very pleasant 62-year-old female presents for follow-up regarding venous insufficiency. She continues to have swelling and discomfort of the left leg. Right leg has done well after the procedure. She notices that the varicosities have decreased in the swelling and discomfort have decreased as well. Of note postprocedure ultrasound is negative for DVT. She now presents for follow-up regarding her left leg. [facility] Medical History IBS (irritable bowel syndrome) Hypertension Hyperlipidemia Diabetes mellitus Family History Mother Diabetes Father Stroke FHx: cancer of prostate Brother Leukemia Brother Bone cancer Maternal Grandmother Diabetes Social History Alcohol intake: never Patient Tobacco Use Status: Former Tobacco user Cigarette Packs Per Day: 0.25 Years Smoked: 20.00 service: No Current occupational status: employed Review of Systems Const Reports as per HPI ENT Reports no additional complaints Card Denies chest pain, Denies chest pain at rest and Denies chest pain with activity Resp Denies chest congestion and Denies cough GI Reports no additional complaints Musc Details: pain over varicosities, aching of lower extremities, swelling, cramping, heaviness and tiredness, itching Denies abnormal gait Skin/Breast Reports pruritus and Denies wounds Neuro Reports no additional complaints and Denies abnormal gait Psych Denies no additional complaints Physical Exam Vital Signs: BMI result Body Mass Index 35.7 Const General: cooperative, healthy appearing and comfortable Orientation/consciousness: oriented to person, oriented to place and oriented to time Neck Carotids: no bruits Chest Chest palpation & inspection: normal inspection of the chest and normal palpation of entire chest wall Resp Effort & Inspection: normal respiratory effort and able to speak in complete sentences Cardio Rate: regular rate Heart sounds: S1 normal heart sound present and S2 normal heart sound present Peripheral pulses: Peripheral pulses 2+ throughout GI Inspection: Yes normal to inspection Skin Other: +2 edema, large rope-like varicosities greater than 4 mm CEAP Classification C4 - skin color changes Ep - Etiology Primary As - superficial veins P - reflux General skin exam: dry skin Neuro General: oriented to person, oriented to place and oriented to time Extrem Right lower extremity: full ROM, normal capillary refill and edema Left lower extremity: full ROM, normal capillary refill and edema Psych Mental Status: mental status grossly normal Results Reviewed Results Reviewed: Brief summary of venous insufficiency testing is as follows: right great saphenous vein: Ablated right small saphenous vein: negative right accessory vein: none present left great saphenous vein: Positive left small saphenous vein: negative left accessory vein: none present Please note there is no evidence of any venous aneurysms or significant tortuosity Assessment & Plan Assessment & Plan (1) Varicose veins of left lower extremity with inflammation: Code(s): I83.12 - Varicose veins of left lower extremity with inflammation Plan: This patient has varicose veins with inflammation. They continue to be a source of discomfort for the patient. The patient has tried conservative treatment with compression, leg elevation and exercise program for over 3 months time. They have been compliant with all treatment. This has provided minimal relief for the patient. I do not anticipate this course of treatment will alter the underlying etiology. The patient has been scheduled for lower extremity venous treatment inclusive of --- left great saphenous vein Cyanoacralate ablation. Risks, benefits, and complications of this procedure has been discussed in detail with the patient including but not limited to bleeding, infection, and the development of a DVT. The patient has demonstrated a clear understanding and has consented. We will schedule the patient as soon as possible. Thank you for allowing us to participate in this patient's care. If there are any questions or concerns please do not hesitate to contact us. (2) Varicose veins of right lower extremity with inflammation: Comment: 04/13/2023 - right great saphenous Cyanoacralate ablation Code(s): I83.11 - Varicose veins of right lower extremity with inflammation Coding Level of Care Code Est Pt Level 4 (40781) Diagnoses Varicose veins of left lower extremity with inflammation I83.12 Varicose veins of right lower extremity with inflammation I83.11
== END 2023-04-26 10:10 | disposition home or self-care (01) ==
PROVIDERS: PCP Internal Medicine; Visit Provider Surgery Vascular Surgery
DX: I83.12 Varicose veins of left lower extremity with inflammation (principal); I83.11 Varicose veins of right lower extremity with inflammation
CPT/HCPCS: 99214

== ENCOUNTER → 2023-04-26 09:14 | Outpatient (BNVA) | payer OTHER, SELFPAY | PROVIDERS: PCP Internal Medicine; Visit Provider Surgery Vascular Surgery ==

== ENCOUNTER 2023-04-27 10:57 | Outpatient (AMB) | payer OTHER, SELFPAY ==
--- NOTE | 2023-04-27 11:06 | A.OFFVIS_ITS ---
Intake Vital Signs 04/27/23 11:08 Height 5 ft 10 in Weight 249 lb BMI 35.7 BP 132/61 Blood Pressure Location Lt brachial Position Sitting Pulse 84 Intake Visit Reasons: 6 month follow up Intake Note: Patient 6 month follow up abdominal bloating. Patient cc: abdominal bloating, and denies any other GI issues. Seafood Specialist Required: No Accompanied by: Self / Same As Patient Allergies No Known Allergies Allergy (Verified 04/27/23 11:05) HPI 6 month follow up HPI Details LAST VISIT IBS (irritable bowel syndrome) Patient reports that she has been feeling better now that she is moving her bowels completely. Occasional depending on what she eats she will have bloating. Continue MiraLax. Abdominal bloating Continue avoiding dietary triggers. Low FODMAP diet encouraged. Transaminitis Transaminitis. Will rule out out immune disorders patient. Will send her for ultrasound with elastography. Patient reports bilateral lower extremity swelling and would like to be referred to vascular surgeon. I will see patient in 6 months, sooner on as needed basis. Patient is agreeable this plan and verbalizes understanding of an obstructions. She was given the opportunity to ask questions and all questions answered. ? TODAY'S VISIT Patient is here today for follow-up. Patient reports that she has been doing fairly well. Seen vascular surgeon who did surgery to her right leg and now she will go for another procedure on her left leg. Patient reports that she changed her diet and has been doing fairly well. Patient denies any acid reflux. Denies any dyspepsia, dysphagia or odynophagia. Denies any melena, hematochezia, unintentional weight loss or ribbon like stools. Patient reports that she has been moving her bowels well. Patient reports that she had colonoscopy in the past and is not sure when she supposed to have 1. Patient will be moving to [place] at end of July of next year and would like to have 1 done before she leaves. Patient will look for records and will bring to next appointment. [facility] Medical History IBS (irritable bowel syndrome) Hypertension Hyperlipidemia Diabetes mellitus Family History Mother Diabetes Father Stroke FHx: cancer of prostate Brother Leukemia Brother Bone cancer Maternal Grandmother Diabetes Social History Alcohol intake: never Patient Tobacco Use Status: Former Tobacco user Cigarette Packs Per Day: 0.25 Years Smoked: 20.00 service: No Current occupational status: employed Review of Systems Const Denies weight gain and Denies weight loss ENT Reports no additional complaints, Denies dysphagia and Denies odynophagia Card Reports no additional complaints Resp Reports no additional complaints GI Denies abdominal pain, Denies belching, Denies melena, Denies bloating, Denies change in bowel habits, Denies dysphagia, Denies excessive flatus, Denies dyspepsia, Denies heartburn, Denies diarrhea, Denies loose stools, Denies nausea, Denies odynophagia and Denies vomiting Reports no additional complaints Musc Reports no additional complaints Neuro Reports no additional complaints Psych Reports no additional complaints Endo Reports no additional complaints Physical Exam Vital Signs: Last Vital Signs Pulse 84 04/27/23 11:08 BP 132/61 04/27/23 11:08 BMI result Body Mass Index 35.7 Const General: healthy appearing, no acute distress and well developed Nutritional Appearance: obese Orientation/consciousness: patient oriented x3 HEENT Head: Yes normal to inspection, Yes normocephalic and Yes atraumatic Face and sinus: Yes normal facial exam Mouth: Normal oral and palatal mucosa present Throat: Yes posterior oropharynx normal, Yes tonsils normal and Yes uvula midline Eyes General: appearance normal, both eyes and all related structures Neck Neck: Yes normal visual inspection, Yes full ROM and Yes trachea midline Thyroid: Thyroid normal Resp Effort & Inspection: normal respiratory effort, able to speak in complete sentences, no tracheal deviation and symmetric chest movement Auscultation: clear to auscultation bilaterally Cardio Rate: regular rate Heart sounds: S1 normal heart sound present and S2 normal heart sound present GI Inspection: Yes normal to inspection, No distended and Yes obesity Palpation (GI): Soft to palpation, not firm, nontender and No hepatosplenomegaly present Auscultation: normal bowel sounds General: Yes no CVA tenderness Back/Spine/Pelvis Back: no CVA tenderness Skin General skin exam: elasticity normal, turgor normal and dry skin Neuro General: patient oriented x3 Psych Appearance: grossly normal Mental Status: mental status grossly normal Results Reviewed Results Reviewed: ABDOMINAL ULTRASOUND WITH LIVER ELASTOGRAPHY 11/23/2022 FINDINGS: PANCREAS: Limited. The visualized pancreatic head and body are normal in appearance. The remainder of the pancreas is obscured from visualization by the overlying bowel gas. ABDOMINAL AORTA: The proximal, middle, and distal aortic segments are normal in caliber. INFERIOR VENA CAVA: Visualized portions are normal. LIVER: The liver demonstrates normal size, contour and generally increased echogenicity. No focal lesion or intrahepatic biliary duct dilatation. The right lobe measures 21.3 cm in length. The left lobe measures 14.8 cm in length. Portal flow is towards the liver (hepatopetal). Shear wave liver elastography median stiffness is 1.81 m/s (reference: normal median stiffness is 1.3 m/s or less). IQR/median stiffness to assess sampling precision is 0.10 (reference: good quality data set is IQR/median stiffness of 0.15 or less). GALLBLADDER: Mild layering sludge is noted. The gallbladder is physiologically distended without evidence of stones, polyps, wall thickening or pericholecystic fluid. COMMON BILE DUCT: Normal in caliber measuring 0.7 cm in diameter. RIGHT KIDNEY: Normal. No hydronephrosis. No renal calculi or focal parenchymal lesions. The kidney measures 14.3 cm in maximum dimension. LEFT KIDNEY: Normal. No hydronephrosis. No renal calculi or focal parenchymal lesions. The kidney measures 12.7 cm in maximum dimension. SPLEEN: No focal finding. The spleen measures 14.6 cm in maximum dimension. FREE FLUID: None. US/US abdomen comp w elastography IMPRESSION: 1. There is hepatosplenomegaly. 2. There is generalized increase in hepatic echotexture, consistent with fatty infiltration or hepatocellular disease. Please correlate clinically. No focal hepatic mass or intrahepatic biliary dilatation is seen. 3. Liver elastography: Measurements are suggestive of compensated advanced chronic liver disease but need further test for confirmation. 4. Technically limited ultrasound examination of the pancreatic tail. Assessment & Plan Assessment & Plan (1) IBS (irritable bowel syndrome): Code(s): K58.9 - Irritable bowel syndrome without diarrhea Qualifiers: Irritable bowel syndrome type: with both diarrhea and constipation Qualified Code(s): K58.2 - Mixed irritable bowel syndrome (2) Transaminitis: Code(s): R74.01 - Elevation of levels of liver transaminase levels (3) Hepatic steatosis: Code(s): K76.0 - Fatty (change of) liver, not elsewhere classified Plan Patient's liver enzymes normal when checked last visit. Hepatic steatosis. Patient was encouraged to lose weight. She is trying to change her diet. Patient stopped eating food that is high in fat, greasy or fried. Patient denies any abdominal pain or discomfort. Moving her bowels without any issues. Patient will follow-up in 3 months and will bring colonoscopy results to next appointment. Patient will call us if she will have any GI concerning issues. She is agreeable to this plan and verbalizes understanding of instructions. She was given the opportunity to ask questions and all questions answered. Thank you for allowing me to participate in her care Orders: Orders Liver Panel Today R10.9 - Unspecified abdominal pain Coding Level of Care Code Est Pt Level 3 (35775) Diagnoses Irritable bowel syndrome with both constipation and diarrhea K58.2 Irritable bowel syndrome type: with both diarrhea and constipation Transaminitis R74.01 Hepatic steatosis K76.0 Time Spent (min) 30 Comment 20 minutes spent with patient and additional 10 minutes spent reviewing her records.
[2023-04-27 11:08] VITALS: BP 132/61; PULSE 84; BMI 35.7
== END 2023-04-27 11:28 | disposition home or self-care (01) ==
PROVIDERS: Visit Provider Nurse Practitioner Family
DX: K58.2 Mixed irritable bowel syndrome (principal); R74.01 Elevation of levels of liver transaminase levels; K76.0 Fatty (change of) liver, not elsewhere classified
CPT/HCPCS: 99213

== ENCOUNTER 2023-04-27 10:57 | Outpatient (REF) | payer OTHER, SELFPAY ==
[2023-04-27 12:48] LABS: Alanine Aminotransferase 31 U/L (0-31); Albumin Level 3.9 g/dL (3.5-5.0); Alkaline Phosphatase 94 U/L (39-117); Aspartate Amino Transferase 32 U/L (5-31); Bilirubin Direct 0.2 mg/dL (0.0-0.5); Bilirubin Total 0.3 mg/dL (0.0-1.0); Total Protein 7.1 g/dL (6.5-8.0)
== END 2023-04-27 10:58 | disposition home or self-care (01) ==
LOC: HO.LAB 10:57
PROVIDERS: PCP Internal Medicine; Visit Provider Nurse Practitioner Family
DX: R10.9 Unspecified abdominal pain (principal); K76.0 Fatty (change of) liver, not elsewhere classified; K58.2 Mixed irritable bowel syndrome; R74.01 Elevation of levels of liver transaminase levels
CPT/HCPCS: 36415; 80076

== ENCOUNTER 2023-05-03 11:29 | Outpatient (AMB) | payer OTHER, SELFPAY ==
[2023-05-03 12:56] VITALS: BP 126/72; PULSE 101; TEMP 36.9; O2SAT 92; BMI 35.5
--- NOTE | 2023-05-03 12:56 | MHC.OFFVIS ---
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
--- NOTE | 2023-05-03 13:00 | AM.OFFWIN_ITS ---
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 Pt states she feels very bloated and has had a lot of gas within the past 2 weeks. Patient Tobacco Use Status: Former Tobacco user Allergies No Known Allergies Allergy (Verified 05/03/23 12:59) HPI HPI Comments History of Present Illness Details 62-year-old female history of diabetes d iverticulosis that presents for abdominal pain. Patient has had 2 weeks of abdominal pain. The pain is upper worse after eating. She endorses excessive belching, nausea, and chills PFSH Medical History IBS (irritable bowel syndrome) Hypertension Hyperlipidemia Diabetes mellitus Family History Mother Diabetes Father Stroke FHx: cancer of prostate Brother Leukemia Brother Bone cancer Maternal Grandmother Diabetes Social History Alcohol intake: never Patient Tobacco Use Status: Former Tobacco user Cigarette Packs Per Day: 0.25 Years Smoked: 20.00 service: No Current occupational status: employed Review of Systems GI Reports abdominal pain and Reports belching Physical Exam Vital Signs: Last Vital Signs Temp 98.5 F 05/03/23 12:56 Pulse 101 H 05/03/23 12:56 BP 126/72 05/03/23 12:56 Pulse Ox 92 05/03/23 12:56 Oxygen Delivery Method Room Air 05/03/23 12:56 BMI result Body Mass Index 35.5 Const General: cooperative, no acute distress and alert Orientation/consciousness: patient oriented x3 Limitations: no limitations HEENT Head: Yes normal to inspection Ears: hearing grossly normal bilaterally and external ears normal General nose exam: Normal external nose present Eyes General: appearance normal, both eyes and all related structures Neck Neck: Yes normal visual inspection Chest Chest palpation & inspection: normal inspection of the chest Resp Effort & Inspection: normal respiratory effort, able to speak in complete sentences and no audible wheezes Auscultation: clear to auscultation bilaterally Cardio Rate: regular rate Rhythm: regular rhythm GI Other: ttp in the Epigastric region Inspection: Yes normal to inspection Skin General skin exam: no rashes or lesions noted Neuro General: patient oriented x3 Psych Appearance: grossly normal Mental Status: mental status grossly normal Speech and movement: Normal speech and movement present Affect: normal affect Attitude: cooperative Thought process: Normal thought process present Thought content: Normal thought content present Assessment & Plan Assessment & Plan (1) Abdominal pain: Code(s): R10.9 - Unspecified abdominal pain Qualifiers: Abdominal location: generalized Qualified Code(s): R10.84 - Generalized abdominal pain Plan: Cardia. Patient is alert oriented in mild discomfort. Exam of the upper epigastric tenderness to palpation. Exam is otherwise unremarkable. Given patient presentation of consideration concern gastroparesis versus cholecystitis versus obstruction versus diverticulitis versus GERD. Discussed limited ability in resources to properly assess abdominal pain in the urgent care setting. Recommend patient proceed to emergency department for further evaluation. Coding Level of Care Code Est Pt Level 3 (23049) Diagnoses Generalized abdominal pain R10.84 Abdominal location: generalized
== END 2023-05-03 13:20 | disposition home or self-care (01) ==
PROVIDERS: PCP Internal Medicine; Visit Provider Physician Assistant
DX: R10.84 Generalized abdominal pain (principal)
CPT/HCPCS: 99213

== ENCOUNTER 2023-05-03 13:49 | Emergency (ER) | payer OTHER, SELFPAY ==
--- NOTE | ~2023-05-03 | US_ITS ---
EXAMINATION: US ABDOMEN LIMITED CLINICAL INFORMATION: Right upper quadrant pain/nausea. COMPARISON: None available. TECHNIQUE: Real-time imaging of the right upper quadrant abdominal viscera. FINDINGS: PANCREAS: Normal head and body, the tail is partially obscured by bowel gas. LIVER: The liver is normal in size. The liver contour is normal. There is diffuse increased liver parenchymal echogenicity, consistent with hepatic steatosis. A small amount of focal fatty sparing is seen adjacent to the gallbladder. No focal hepatic lesion. There is no intrahepatic biliary duct dilatation seen. GALLBLADDER: Normal. The gallbladder is physiologically distended without evidence of stones, sludge, polyps, wall thickening or pericholecystic fluid. The patient is tender during scanning of the gallbladder, however, no abnormality of the gallbladder is demonstrated. COMMON BILE DUCT: Normal in caliber measuring 0.5 cm in diameter. RIGHT KIDNEY: Normal. No hydronephrosis. No renal calculi or focal parenchymal lesions. The kidney measures 13.0 cm in maximum dimension. FREE FLUID: None. Scanning of the midline and slightly to the left of midline demonstrates distention with multiple loops of bowel seen in this area. US/US abdomen limited IMPRESSION: 1. Hepatic steatosis. 2. The patient is tender during scanning of the gallbladder, however, no abnormality of the gallbladder is demonstrated.
--- NOTE | ~2023-05-03 | CT_ITS ---
EXAMINATION: CT ABDOMEN AND PELVIS WITH CONTRAST CLINICAL INFORMATION: Epigastric pain, nausea, bloating. COMPARISON: Abdominal ultrasound 05/03/2023. CT abdomen/pelvis 12/08/2021. TECHNIQUE: Multidetector volumetric images were obtained from the superior aspect of the liver through the pubic symphysis following administration 85 mL of Omnipaque 350 intravenous contrast. Sagittal and coronal reformatted images were obtained on the technologist's workstation. Oral contrast: No This CT examination was performed using dose optimization techniques as appropriate, variously including the following: *Automated exposure control *Adjustment of mA and/or kV according to patient size (this includes techniques or standardized protocols for targeted exams where dose is matched to indication/reason for exam; i.e. extremities or head) *Use of iterative reconstruction technique DLP: 881 mGy-cm FINDINGS: LUNG BASES: New patchy airspace opacities in the lingula and left lower lobe. LIVER, GALLBLADDER, AND BILIARY TREE: The liver is enlarged measuring 19.7 cm craniocaudally and demonstrates decreased attenuation most consistent with hepatic steatosis. There is suggestion of a subtle nodular contour which could be seen with cirrhosis. No discrete focal liver lesion. No biliary ductal dilatation. The gallbladder is unremarkable with no evidence of radiopaque gallstones, gallbladder wall thickening, or obvious pericholecystic inflammatory changes. PANCREAS: Unremarkable. SPLEEN: Unremarkable. ADRENAL GLANDS: Unremarkable. KIDNEYS AND URETERS: The kidneys are normal in size, shape, and attenuation. No hydronephrosis, hydroureter, or calculi seen. No perinephric stranding. BLADDER: Unremarkable. GASTROINTESTINAL TRACT: Small hiatal hernia. The stomach and the small bowel are nondilated. There is mild fluid-filled distention of loops of small bowel in the right lower abdomen (7:72) with mild generalized mesenteric vasculature engorgement that could be seen with gastroenteritis. Normal appendix. Equivocal mild wall thickening of the cecum and ascending colon, suboptimally assessed due to underdistention. No pericolonic fat stranding or free fluid. No evidence of bowel obstruction. ABDOMINAL WALL: Stable superficial fat stranding the lower abdominal wall (7:83), most likely related with changes from injection sites. Tiny fat-containing umbilical hernia. LYMPH NODES: A prominent posterior mediastinal periesophageal lymph node measuring 0.7 cm short axis (7:15) is unchanged. Prominent periportal lymph nodes are stable. VASCULAR: Normal caliber abdominal aorta. PELVIC VISCERA: Unremarkable. OSSEOUS STRUCTURES: No acute or aggressive appearing osseous findings. Degenerative changes of the spine. Redemonstration of a few vertebral body hemangiomas, for instance largest at L3. CT/CT abdomen pelvis w IV con IMPRESSION: 1. New patchy airspace opacities in the lingula and left lower lobe concerning for an infectious or inflammatory process. 2. Mild fluid-filled distention of loops of small bowel in the right lower abdomen with mild generalized mesenteric vasculature engorgement that could be seen with gastroenteritis. 3. Small hiatal hernia. 4. Possible wall thickening of the cecum and ascending colon, suboptimally assessed due to underdistention. No significant pericolonic fat stranding or free fluid. If not recently obtained, correlation with outpatient colonoscopy is recommended for further characterization. 5. Hepatomegaly and hepatic steatosis with suggestion of a subtle nodular contour which could be seen with cirrhosis.
[2023-05-03 14:01] VITALS: BP 165/75; PULSE 94; RESP 18; TEMP 36.4; O2SAT 97; BMI 35.2
--- NOTE | 2023-05-03 14:02 | ED.GENADULT ---
HPI - General Adult General Chief complaint: Abdominal Pain Stated complaint: sent from [facility] Time Seen by Provider: 05/03/23 14:21 Source: patient and old records reviewed Mode of arrival: ambulatory Limitations: no limitations History of Present Illness HPI narrative: 62 yo female with PMH of HTN, IBS, DM, HLD, kidney stones, here with c/o upper abdominal pain, bloating, worse with eating, nausea and chills. She belches and states she just feels terrible. She developed chills but no fevers this AM. She states she has never had this before. MD complaint: abdominal pain Onset (ago): week(s) (2) Location: abdomen Radiation: non-radiation Severity: moderate Quality: aching and constant Pain Consistency: constant Relieving factors: none Exacerbating factors: eating Associated symptoms: fever/chills, loss of appetite, malaise and nausea/vomiting Treatments prior to arrival: none Related Data Home Medications Medication Instructions Recorded Confirmed insulin lispro 100 unit/mL See Protocol subcut TID 05/07/21 08/27/22 subcutaneous pen (Humalog KwikPen (U-100) Insulin) lisinopril 5 mg tablet 5 mg PO DAILY 05/07/21 08/27/22 metformin 500 mg tablet,extended 1,000 mg PO BID 05/07/21 08/27/22 release 24 hr atorvastatin 10 mg tablet 10 mg PO DAILY 08/27/22 08/27/22 dulaglutide 3 mg/0.5 mL 3 mg subcut FR 08/27/22 08/27/22 subcutaneous pen injector (Trulicity) naproxen 500 mg tablet 1 tab PO Q12H PRN Pain 08/27/22 08/27/22 dulaglutide 4.5 mg/0.5 mL mg subcut 04/27/23 subcutaneous pen injector (Trulicity) Previous Rx's Medication Instructions Recorded ibuprofen 400 mg tablet 400 mg PO Q6H PRN headache #30 09/02/22 tabs amoxicillin 875 mg-potassium 1 tab PO BID #14 tabs 05/03/23 clavulanate 125 mg tablet azithromycin 250 mg tablet See Rx Instructions PO .COMPLEX #6 05/03/23 tabs Allergies Allergy/AdvReac Type Severity Reaction Status Date / Time No Known Allergies Allergy Verified 05/03/23 12:59 Review of Systems Review of Systems: Constitutional : No Weight loss, No Fever, pos Chills ENT/Mouth : No sore throat, No Rhinorrhea Eyes: No Swelling, No Redness Cardiovascular : No Chest Pain, No SOB, NoEdema Respiratory : No Cough, No Sputum, No Wheezing Gastrointestinal : Positive Nausea, no Vomiting, no Diarrhea, positive abdominal Pain, No Hematochezia, No Melena Genitourinary : No Dysuria, No Urinary Frequency, No Hematuria, No Urgency Musculoskeletal : No joint pain, No Myalgias, No Joint Swelling Skin : No Skin Lesions, No rash Neuro : No Weakness, No Numbness, No Dizziness, No Headache Psych : No Anxiety/Panic, No Depression All other systems reviewed and are negative. [facility] Past Medical History Attestation statement: The following information was validated with the patient. Source: old records reviewed Medical History IBS (irritable bowel syndrome) Hypertension Hyperlipidemia Diabetes mellitus Family History Family History Mother Diabetes Father Stroke FHx: cancer of prostate Brother Leukemia Brother Bone cancer Maternal Grandmother Diabetes Social History Social History Alcohol intake: never Patient Tobacco Use Status: Former Tobacco user Cigarette Packs Per Day: 0.25 Years Smoked: 20.00 Smoked in Last 30 Days: No Use of substances other than those prescribed or required for medical reasons: No Advance Directives: No service: No Current occupational status: employed Physical Exam ED Vital Signs: Vital Signs - 24 hr 05/03/23 14:01 05/03/23 14:23 05/03/23 17:31 Temperature 97.5 F 98.0 F 97.8 F Pulse Rate 94 94 79 Respiratory Rate 18 16 14 Blood Pressure 165/75 H 148/64 H 158/80 H Pulse Oximetry 97 99 98 Oxygen Delivery Method Room Air Room Air Room Air BMI result Body Mass Index 35.2 Appearance: Alert. Oriented X3. No acute distress. Eyes: Pupils equal, round and reactive to light. ENT: Pharynx normal. Neck: Normal inspection. Neck supple. CVS: Normal heart rate and rhythm. Pulses normal. Respiratory: No respiratory distress. Breath sounds normal. Abdomen: Soft and moderate ttp in RUQ + Smith's sign Skin: Skin warm and dry. Normal skin color. Normal skin turgor. Extremities: No lower extremity edema. No calf ttp Neuro: Oriented X 3. No motor deficit. No sensory deficit. Course Course Course Narrative: RME- 62-year-old female presents for evaluation of epigastric abdominal pain after eating for the last 2 weeks. Plan for labs. Potential imaging will be deferred to primary provider Reevaluation(s) Reevaluation #1: feels much better at this time Medications Administered Discontinued Medications Generic Name Dose Route Start Last Admin Trade Name Freq PRN Reason Stop Dose Admin Acetaminophen 650 mg 05/03/23 17:24 05/03/23 17:28 Acetaminophen 325 Mg Tablet PO 05/03/23 17:25 650 mg ONCE ONE Administration Sodium Chloride 1,000 mls @ 999 mls/hr 05/03/23 14:45 05/03/23 16:26 Ns IV 05/03/23 15:45 Infused .Q1H1M ESTEFANI Infusion Iohexol 85 ml 05/03/23 16:58 05/03/23 16:59 Iohexol 350 Mg/Ml 100 Ml Infus..Btl IV 05/03/23 16:59 85 ml ONCE ONE Administration Morphine Sulfate 4 mg 05/03/23 14:33 05/03/23 15:06 Morphine Sulfate 4 Mg/Ml Cartridge IVPUSH 05/03/23 14:34 4 mg ONCE ONE Administration Protocol Ondansetron HCl 4 mg 05/03/23 14:33 05/03/23 15:06 Ondansetron Hcl 4 Mg/2 Ml Vial IVPUSH 05/03/23 14:34 4 mg ONCE ONE Administration Medical Decision Making Medical Decision Making [facility] Narrative: 62 yo female with PMH of HTN, IBS, DM, HLD, kidney stones here with c/o upper abdominal pain, bloating, chills and not feeling well x 2 weeks at this time worse with eating - will need basic labs, US to rule out gallstones if negative will obtain imaging with CT scan for mass/divertular disease. IV morphine for pain. Differential Diagnosis Differential Diagnoses: The differential diagnosis associated with the presentation includes billiary colic, gastritis, mass, diverticular disease Admission/Observation Consideration of admission/observation: Escalation of care including admission/observation considered no hypoxia, labs stable can be managed as outpatient and she feels stable with this she will contact her GI doctor in [place] Lab Data MDM Lab Attestation statement: I reviewed the patient's lab results. 05/03/23 14:08 05/03/23 14:08 Labs: Lab Results 05/03/23 05/03/23 Range/Units 14:08 14:27 WBC 13.9 H (4.8-10.8) X10*3/uL RBC 3.87 L (4.20-5.50) X10*6/uL Hgb 12.3 (12.0-16.0) g/dl Hct 36.1 L (37.0-47.0) % MCV 93.3 (80.0-98.0) fL MCH 31.8 (27.0-33.0) pg MCHC 34.1 (31.0-35.0) g/dl RDW 11.9 (11.0-16.0) % Plt Count 162 (160-400) X10*3/uL MPV 9.8 (9.4-12.3) fL Immature Gran % (Auto) 0.4 (0.0-0.4) % Neut % (Auto) 73.2 H (45-73) % Lymph % (Auto) 20.3 (20-40) % [place] % (Auto) 5.6 (2-11) % Eos % (Auto) 0.3 (0-4) % Baso % (Auto) 0.2 (0-2) % Lymph # (Auto) 2.8 (1.2-4.9) X10*3/uL [place] # (Auto) 0.8 (0.1-1.2) X10*3/uL Eos # (Auto) 0.0 (0.0-0.4) X10*3/uL Baso # (Auto) 0.0 (0.0-0.2) X10*3/uL Abs Immat Gran (auto) 0.05 H (0.00-0.03) X10*3/uL Absolute Neuts (auto) 10.2 H (2.0-8.3) x10*3/uL Absolute Nucleated RBC 0.000 (0.0-0.012) X10*3/uL Nucleated RBC % (auto) 0.0 (0.0-0.2) /100WBC Sodium 135 (135-145) mmol/L Potassium 3.9 D (3.3-5.1) mmol/L Chloride 104 (96-108) mmol/L Carbon Dioxide 24 (22-29) mmol/L Anion Gap 11 L (12-20) BUN 20 H (9-16) mg/dL Creatinine 0.87 (0.5-1.4) mg/dL Estim Creat Clear Calc 88.1 Estimated GFR > 60 Random Glucose 263 H (60-115) mg/dL Calcium 9.3 (8.4-10.2) mg/dL Total Bilirubin 0.6 (0.0-1.0) mg/dL AST 29 (5-31) U/L ALT 28 (0-31) U/L Alkaline Phosphatase 84 (39-117) U/L Total Protein 6.7 (6.5-8.0) g/dL Albumin 3.7 (3.5-5.0) g/dL Lipase 20 (8-78) U/L Urine Color Yellow Urine Appearance Clear Urine pH 5.5 (5.0-9.0) Ur Specific [place] 1.020 (1.005-1.025) Urine Protein Negative (Neg-Trace) mg/dL Urine Glucose (UA) >=1000 H (Negative) mg/dL Urine Ketones Negative (Negative) mg/dL Urine Blood Negative (Negative) Urine Nitrite Negative (Negative) Ur Leukocyte Esterase Negative (Negative) Urine RBC 0-2 (0-2) /HPF Urine WBC 0-5 (0-5) /HPF Ur Squamous Epith Cells 0-2 (0-2) /HPF Urine Bacteria None Seen (None Seen) Hyaline Casts 0-2 (0-2) /LPF Independent Interpretation I performed an independent interpretation of an: Ultrasound (no gallstones or cause of pain) and CT Scan (pneumonia) Radiology Impression Discussion of test interpretation with radiology: I have reviewed the radiologist's reading. External Record Review External record reviewed: Office record Chronic Conditions Patient?s care impacted by: Diabetes Discharge Plan Discharge Clinical Impression: Abdominal pain Qualifiers: Abdominal location: epigastric Qualified Code(s): R10.13 - Epigastric pain Pneumonia Qualifiers: Pneumonia type: due to other aerobic Gram-negative bacteria Laterality: left Lung location: lower lobe of lung Qualified Code(s): J15.69 - Pneumonia due to other Gram-negative bacteria Patient Disposition: Home, Self-Care Instructions: Abdominal Pain (ED), Pneumonia (ED) Additional Instructions: your CT scan showed a lower lobe pneumonia on the left side - return for fevers, worsening pain, shortness of breath or any other concerns. your CT scan showed some mild inflammation of the intestines but no mass - you should call your GI doctor to get a repeat colonoscopy, you also had a fatty liver but normal liver blood tests On amoxicillin-clavulanate, softer bowel movements are to be expected. Call your provider if you move your bowels more than 4 times a day, your bowel movements are almost all liquid, or you get a rash.? On azithromycin, call your provider if you develop new ringing in your ears, new problems hearing, dizziness, palpitations, abdominal pain, nausea, or diarrhea. Prescriptions: New amoxicillin-pot clavulanate 875-125 mg tablet 1 tab PO BID Qty: 14 0RF azithromycin 250 mg tablet See Rx Instructions PO .COMPLEX Qty: 6 0RF Rx Instructions: For 250 mg dose pack: take 500 mg today (day 1), then 250 mg for 4 days (days 2-5) No Action atorvastatin 10 mg tablet 10 mg PO DAILY naproxen 500 mg tablet 1 tab PO Q12H PRN (Reason: Pain) Rx Instructions: take with a meal Trulicity 3 mg/0.5 mL pen injector 3 mg subcut FR ibuprofen 400 mg Tablet 400 mg PO Q6H PRN (Reason: headache ) Qty: 30 0RF lisinopril 5 mg tablet 5 mg PO DAILY metformin 500 mg tablet extended release 24 hr 1,000 mg PO BID insulin lispro [Humalog KwikPen Insulin] 100 unit/mL insulin pen See Protocol subcut TID Protocol: Insulin Correction Scale Less than or equal to 110 ---- Give (units): 0 111 to 150 Give (units): 0 151 to 200 Give (units): 2 201 to 250 Give (units): 4 251 to 300 Give (units): 6 301 to 350 Give (units): 8 Greater than 350 Give (units): 10 Call MD if Blood Glucose > : 350 Trulicity 4.5 mg/0.5 mL pen injector subcut
[2023-05-03 14:17] LABS: MANUAL DIFF FLAG NO
[2023-05-03 14:19] LABS: Basophils Percent Auto 0.2 % (0-2); Eosinophils Percent Auto 0.3 % (0-4); Hematocrit 36.1 % (37.0-47.0); Hemoglobin 12.3 g/dl (12.0-16.0); Imm Gran Abs Auto 0.05 X10*3/uL (0.00-0.03); Imm Gran Pct Auto 0.4 % (0.0-0.4); Lymphocytes Absolute Auto 2.8 X10*3/uL (1.2-4.9); Lymphocytes Percent Auto 20.3 % (20-40); Mean Corpuscular HGB Conc 34.1 g/dl (31.0-35.0); Mean Corpuscular Hemoglobin 31.8 pg (27.0-33.0); Mean Corpuscular Volume 93.3 fL (80.0-98.0); Mean Platelet Volume 9.8 fL (9.4-12.3); Monocytes Absolute Auto 0.8 X10*3/uL (0.1-1.2); Monocytes Percent Auto 5.6 % (2-11); Neutrophils Absolute Auto 10.2 x10*3/uL (2.0-8.3); Neutrophils Percent Auto 73.2 % (45-73); Platelet Count 162 X10*3/uL (160-400); Red Blood Count 3.87 X10*6/uL (4.20-5.50); Red Cell Distribution Width 11.9 % (11.0-16.0); White Blood Count 13.9 X10*3/uL (4.8-10.8)
[2023-05-03 14:23] VITALS: BP 148/64; PULSE 94; RESP 16; TEMP 36.7; O2SAT 99
[2023-05-03 14:36] LABS: Alanine Aminotransferase 28 U/L (0-31); Albumin Level 3.7 g/dL (3.5-5.0); Alkaline Phosphatase 84 U/L (39-117); Anion Gap 11 (12-20); Aspartate Amino Transferase 29 U/L (5-31); Bilirubin Total 0.6 mg/dL (0.0-1.0); Blood Urea Nitrogen 20 mg/dL (9-16); Calcium 9.3 mg/dL (8.4-10.2); Carbon Dioxide 24 mmol/L (22-29); Chloride 104 mmol/L (96-108); Creatinine Clr Calc Pharmacy 88.1; Estimated Glomerular Filt Rate > 60; Glucose Random 263 mg/dL (60-115); Lipase 20 U/L (8-78); Potassium 3.9 mmol/L (3.3-5.1); Sodium 135 mmol/L (135-145); Total Protein 6.7 g/dL (6.5-8.0)
[2023-05-03 14:39] LABS: Appearance Urine Clear; Color Urine Yellow; Glucose Urine UA >=1000 mg/dL (Negative); Leukocyte Esterase Urine Negative (Negative); Nitrite Urine Negative (Negative); PH 5.5 (5.0-9.0); UMIC TRIGGER UACC YES; Urine Blood Negative (Negative); Urine Ketones Negative (Negative); Urine Protein Negative (Neg-Trace)
[2023-05-03 14:41] LABS: Bacteria Urine None Seen (None Seen); Hyaline Casts Urine 0-2 /LPF (0-2); RBC Urine 0-2 /HPF (0-2); Squamous Epithelial Cell Urine 0-2 /HPF (0-2); WBC Urine 0-5 /HPF (0-5)
[2023-05-03] MEDS: 0.9 % Sodium Chloride 1,000 ML 999 ML IV (15:05)
[2023-05-03] MEDS: Morphine Sulfate 4 MG/ML CARTRIDGE IVPUSH (15:06)
[2023-05-03] MEDS: ondansetron HCL 4 MG/2 ML VIAL IVPUSH (15:06)
[2023-05-03] MEDS: iohexoL 350 MG/ML 100 ML INFUS..BTL 85 ML IV (16:59)
[2023-05-03] MEDS: Acetaminophen 325 MG TABLET 650 MG PO (17:28)
[2023-05-03 17:31] VITALS: BP 158/80; PULSE 79; RESP 14; TEMP 36.6; O2SAT 98
--- NOTE | 2023-05-03 17:49 | PC.NURSE ---
per , no blood cultures with abx
[2023-05-03] MEDS: cefTRIAXone sodium 1 GM in 0.9 % Sodium Chloride 50 ML IV (17:59)
== END 2023-05-03 18:28 | disposition home or self-care (01) ==
PROVIDERS: Physician Assistant; Emergency Provider Emergency Medicine; PCP Internal Medicine
DX: J15.69 Pneumonia due to other Gram-negative bacteria (principal); R10.13 Epigastric pain; R11.2 Nausea with vomiting, unspecified; I10 Essential (primary) hypertension; Z87.891 Personal history of nicotine dependence; Z79.899 Other long term (current) drug therapy
CPT/HCPCS: 36415; 74177; 76705; 80053; 81001; 83690; 85025; 96361; 96365; 96375; 99284; 99285; J0696; J2270; J2405; Q9967

== ENCOUNTER 2023-07-11 10:58 | Outpatient (AMB) | payer OTHER, SELFPAY ==
--- NOTE | 2023-07-11 11:05 | MHC.OFFVIS ---
Intake Vital Signs 07/11/23 11:08 Height 5 ft 10 in Weight 240 lb 4.862 oz BMI 34.5 BP 142/66 H Blood Pressure Location Lt brachial Position Sitting Pulse 86 Intake Visit Reasons: 3 month follow up Intake Note: Nhi presents in the office as a 3 month follow up. CC: She states that she is only having a concern that in 3 weeks she is moving down to [place] and she will need to find a new provider down there. Allergies No Known Allergies Allergy (Verified 07/11/23 11:09) HPI 3 month follow up HPI Details LAST VISIT: IBS (irritable bowel syndrome) Transaminitis Hepatic steatosis Plan Patient's liver enzymes normal when checked last visit. Hepatic steatosis. Patient was encouraged to lose weight. She is trying to change her diet. Patient stopped eating food that is high in fat, greasy or fried. Patient denies any abdominal pain or discomfort. Moving her bowels without any issues. Patient will follow-up in 3 months and will bring colonoscopy results to next appointment. Patient will call us if she will have any GI concerning issues. She is agreeable to this plan and verbalizes understanding of instructions. She was given the opportunity to ask questions and all questions answered. ? Thank you for allowing me to participate in her care Orders Orders Liver Panel Today R10.9 TODAY'S VISIT: Patient is here today for follow-up and to discuss lab results. Patient has normal liver enzymes. Reports that she has been feeling well. Tried changing her diet and her symptoms of abdominal bloating has resolved. Patient reports that she is moving her bowels better now. Occasionally taking MiraLax on as needed basis. Patient denies any GI concerning symptoms. Patient will be moving to [place] in 2-3 weeks and will be looking for providers there. [facility] Medical History IBS (irritable bowel syndrome) Hypertension Hyperlipidemia Diabetes mellitus Surgical History (Updated 07/11/23 @ 11:09 by GLORIA Blair) Hx of colonoscopy Hx of varicose vein ligation Family History Mother Diabetes Father Stroke FHx: cancer of prostate Brother Leukemia Brother Bone cancer Maternal Grandmother Diabetes Social History Alcohol intake: never Patient Tobacco Use Status: Former Tobacco user Cigarette Packs Per Day: 0.25 Years Smoked: 20.00 service: No Current occupational status: employed Review of Systems Const Denies weight gain and Denies weight loss ENT Reports no additional complaints, Denies dysphagia and Denies odynophagia Card Reports no additional complaints Resp Reports no additional complaints GI Denies abdominal pain, Denies belching, Denies melena, Denies bloating, Denies change in bowel habits, Denies dysphagia, Denies excessive flatus, Denies dyspepsia, Denies heartburn, Denies diarrhea, Denies loose stools, Denies nausea, Denies odynophagia and Denies vomiting Musc Reports no additional complaints Neuro Reports no additional complaints Psych Reports no additional complaints Endo Reports no additional complaints Physical Exam Vital Signs: Last Vital Signs Pulse 86 07/11/23 11:08 BP 142/66 H 07/11/23 11:08 BMI result Body Mass Index 34.5 Const General: healthy appearing, no acute distress and well developed Nutritional Appearance: obese Orientation/consciousness: patient oriented x3 HEENT Head: Yes normal to inspection, Yes normocephalic and Yes atraumatic Face and sinus: Yes normal facial exam Mouth: Normal oral and palatal mucosa present Throat: Yes posterior oropharynx normal, Yes tonsils normal and Yes uvula midline Eyes General: appearance normal, both eyes and all related structures Neck Neck: Yes normal visual inspection, Yes full ROM and Yes trachea midline Thyroid: Thyroid normal Resp Effort & Inspection: normal respiratory effort, able to speak in complete sentences, no tracheal deviation and symmetric chest movement Auscultation: clear to auscultation bilaterally Cardio Rate: regular rate GI Inspection: Yes normal to inspection, No distended and Yes obesity Palpation (GI): Soft to palpation, not firm, nontender and No hepatosplenomegaly present Auscultation: normal bowel sounds General: Yes no CVA tenderness Back/Spine/Pelvis Back: no CVA tenderness Skin General skin exam: elasticity normal, turgor normal and dry skin Neuro General: patient oriented x3 Psych Appearance: grossly normal Mental Status: mental status grossly normal Results Reviewed Results Reviewed: Laboratory Tests 05/03/23 14:08 AST 29 ALT 28 Alkaline Phosphatase 84 Assessment & Plan Assessment & Plan (1) IBS (irritable bowel syndrome): Code(s): K58.9 - Irritable bowel syndrome without diarrhea Qualifiers: Irritable bowel syndrome type: without diarrhea Qualified Code(s): K58.9 - Irritable bowel syndrome without diarrhea (2) Transaminitis: Code(s): R74.01 - Elevation of levels of liver transaminase levels (3) Hepatic steatosis: Code(s): K76.0 - Fatty (change of) liver, not elsewhere classified Plan Lab results discussed with patient. Patient will continue current diet. She will continue trying to lose weight. She will look for GI specialist in [place]. Patient is moving in about 2-3 weeks. Coding Level of Care Code Est Pt Level 3 (28773) Diagnoses Irritable bowel syndrome without diarrhea K58.9 Irritable bowel syndrome type: without diarrhea Transaminitis R74.01 Hepatic steatosis K76.0 Time Spent (min) 25 Comment 15 minutes spent with patient and additional 10 minutes spent reviewing her records
[2023-07-11 11:08] VITALS: BP 142/66; PULSE 86; BMI 34.5
== END 2023-07-11 11:47 | disposition home or self-care (01) ==
PROVIDERS: PCP Internal Medicine; Visit Provider Nurse Practitioner Family
DX: K58.9 Irritable bowel syndrome, unspecified (principal); R74.01 Elevation of levels of liver transaminase levels; K76.0 Fatty (change of) liver, not elsewhere classified
CPT/HCPCS: 99213

== ENCOUNTER → 2023-07-11 10:58 | Outpatient (BNVA) | payer OTHER, SELFPAY | PROVIDERS: PCP Internal Medicine; Visit Provider Nurse Practitioner Family ==